=== PATIENT | female | born 1980 | race Caucasian/White ===

== ENCOUNTER 2020-06-29 08:47 | Outpatient (REF) | payer OTHER, SELFPAY ==
[2020-06-29 09:27] LABS: MANUAL DIFF FLAG NO
[2020-06-29 09:29] LABS: Basophils Percent Auto 0.4 % (0-2); Eosinophils Absolute Auto 0.4 X10*3/uL (0.0-0.4); Eosinophils Percent Auto 5.1 % (0-4); Hematocrit 37.9 % (37-47); Hemoglobin 12.4 g/dl (12.0-16.0); Imm Gran Abs Auto 0.01 X10*3/uL (0.00-0.03); Imm Gran Pct Auto 0.1 % (0.0-0.4); Lymphocytes Absolute Auto 2.1 X10*3/uL (1.2-4.9); Lymphocytes Percent Auto 27.5 % (20-40); Mean Corpuscular HGB Conc 32.7 g/dl (31.0-35.0); Mean Corpuscular Hemoglobin 30.3 pg (27.0-33.0); Mean Corpuscular Volume 92.7 fL (80-98); Mean Platelet Volume 10.1 fL (9.4-12.3); Monocytes Absolute Auto 0.6 X10*3/uL (0.1-1.2); Monocytes Percent Auto 7.9 % (2-11); Neutrophils Absolute Auto 4.5 X10*3/uL (2.0-8.3); Platelet Count 301 X10*3/uL (160-400); Red Blood Count 4.09 X10*6/uL (4.20-5.50); Red Cell Distribution Width 13.5 % (11.0-16.0); White Blood Count 7.6 X10*3/uL (4.8-10.8)
[2020-06-29 09:40] LABS: Glucose Urine UA NEG (NEG); Leukocyte Esterase Urine NEG (NEG); Nitrite Urine NEG (NEG); Specific Gravity - Urine 1.025 (1.005-1.025); Urine Blood 3+ (NEG); Urine Ketones NEG (NEG); Urine Protein TRACE MG/DL (NEG-TRACE)
[2020-06-29 10:07] LABS: Appearance Urine HAZY; Color Urine YELLOW
[2020-06-29 10:21] LABS: Alanine Aminotransferase 17 U/L (0-31); Alkaline Phosphatase 59 U/L (39-117); Anion Gap 11 (12-20); Aspartate Amino Transferase 16 U/L (5-31); Bilirubin Total 0.6 mg/dL (0.0-1.0); Blood Urea Nitrogen 12 mg/dL (9-16); Calcium 8.8 mg/dL (8.4-10.2); Carbon Dioxide 27 mmol/L (22-29); Chloride 105 mmol/L (96-108); Cholesterol 148 mg/dL; Estimated Glomerular Filt Rate > 60; Glucose Fasting 89 mg/dL (60-99); HDL Cholesterol 51 mg/dL; LDL Cholesterol Calculated 89 mg/dl; Potassium 3.9 mmol/l (3.3-5.1); Sodium 139 mmol/L (135-145); Total Protein 6.9 g/dL (6.5-8.0); Triglycerides 42 mg/dL
[2020-06-29 10:33] LABS: RBC Urine 30-49 /HPF (0); WBC Urine 0-2 /HPF (0-4)
[2020-06-29 10:34] LABS: Squamous Epithelial Cell Urine 1+ /LPF
== END 2020-06-29 08:48 | disposition home or self-care (01) ==
LOC: HO.LAB 08:47
PROVIDERS: PCP Internal Medicine; Visit Provider Internal Medicine
DX: G43.909 Migraine, unspecified, not intractable, without status migrainosus (principal); I10 Essential (primary) hypertension; E66.9 Obesity, unspecified
CPT/HCPCS: 36415; 80053; 80061; 81001; 81003; 81015; 84443; 85025

== ENCOUNTER 2020-07-21 08:28 | Outpatient (REF) | payer OTHER, SELFPAY ==
[2020-07-21 12:59] LABS: CT PCR NOT DETECTED (Not Detect.); NG PCR NOT DETECTED (Not Detect.)
== END 2020-07-21 08:29 | disposition home or self-care (01) ==
LOC: HO.LAB 08:28
PROVIDERS: Visit Provider Advanced Practice Midwife
DX: Z01.419 Encounter for gynecological examination (general) (routine) without abnormal findings (principal); R10.2 Pelvic and perineal pain; Z20.2 Contact with and (suspected) exposure to infections with a predominantly sexual mode of transmission; Z97.5 Presence of (intrauterine) contraceptive device
CPT/HCPCS: 87491; 87591

== ENCOUNTER 2020-07-22 12:38 | Outpatient (REF) | payer OTHER, SELFPAY ==
--- NOTE | 2020-07-22 12:55 | US_ITS ---
EXAMINATION: ULTRASOUND PELVIS COMPLETE. CLINICAL INFORMATION: Pelvic and perineal pain. COMPARISON: None TECHNIQUE: Transabdominal and transvaginal ultrasound pelvis is performed. FINDINGS: The uterus is anteverted and anteflexed measuring 7.1 cm in length, 3.4 cm in AP and 4.2 cm in transverse dimension. There is IUD well located within the endometrial canal. Right ovary measures 1.8 x 1.9 x 1.4 cm and volume 2.5 mL. There are small echogenic calcifications within. Previously right ovary measured 2.4 x 1.4 x 1.2 cm and volume 2.1 mL. Left ovary measures 1.6 x 2.5 at 0.9 cm and volume 1.9 mL. There are small echogenic calcifications within. Previously left ovary measured 2.0 x 0.8 x 1.0 cm and volume 0.8 mL. There is no free fluid in the cul-de-sac. US/US pelvic complete IMPRESSION: Unremarkable uterus with IUD in satisfactory position within the endometrial canal. Small echogenic calcifications in both ovaries. No focal lesion seen. There is no free fluid in the cul-de-sac.
--- NOTE | 2020-07-22 13:34 | US_ITS ---
EXAMINATION: ULTRASOUND PELVIS COMPLETE. CLINICAL INFORMATION: Pelvic and perineal pain. COMPARISON: None TECHNIQUE: Transabdominal and transvaginal ultrasound pelvis is performed. FINDINGS: The uterus is anteverted and anteflexed measuring 7.1 cm in length, 3.4 cm in AP and 4.2 cm in transverse dimension. There is IUD well located within the endometrial canal. Right ovary measures 1.8 x 1.9 x 1.4 cm and volume 2.5 mL. There are small echogenic calcifications within. Previously right ovary measured 2.4 x 1.4 x 1.2 cm and volume 2.1 mL. Left ovary measures 1.6 x 2.5 at 0.9 cm and volume 1.9 mL. There are small echogenic calcifications within. Previously left ovary measured 2.0 x 0.8 x 1.0 cm and volume 0.8 mL. There is no free fluid in the cul-de-sac. US/US transvaginal IMPRESSION: Unremarkable uterus with IUD in satisfactory position within the endometrial canal. Small echogenic calcifications in both ovaries. No focal lesion seen. There is no free fluid in the cul-de-sac.
[2020-07-22 14:26] LABS: Syphilis Screen Nonreactive (Nonreactive)
[2020-07-23 04:19] LABS: HIV AB/AG Nonreactive (Nonreactive); HIV Num 1 0.16 S/CO (0.00-0.99)
[2020-07-23 04:24] LABS: ~HepC Num1 0.12 S/CO (0.00-0.79); ~Hepatitis C Antibody Nonreactive (Nonreactive)
== END 2020-07-22 12:39 | disposition home or self-care (01) ==
LOC: HO.US 12:38
PROVIDERS: PCP Internal Medicine; Visit Provider Advanced Practice Midwife
DX: Z11.4 Encounter for screening for human immunodeficiency virus [HIV] (principal); Z01.84 Encounter for antibody response examination; R10.2 Pelvic and perineal pain; Z97.5 Presence of (intrauterine) contraceptive device
CPT/HCPCS: 76830; 76856; 86780; 86803; 87389

== ENCOUNTER 2020-11-05 13:42 | Outpatient (REF) | payer OTHER, SELFPAY ==
[2020-11-05 15:58] LABS: HCG Quantitative < 2 mIU/mL; TSH reflex Free T4 2.48 uIU/mL (0.32-4.0)
[2020-11-06 15:47] LABS: Follicle Stimulating Hormone 15.9 mIU/mL; Prolactin 6.8 ng/mL
[2020-11-11 14:26] LABS: Testosterone, Free 1.9 pg/mL (0.1-6.4); Testosterone, Total 15 ng/dL (2-45)
== END 2020-11-05 13:43 | disposition home or self-care (01) ==
LOC: HO.LAB 13:42
PROVIDERS: Visit Provider Advanced Practice Midwife
DX: N91.1 Secondary amenorrhea (principal); E66.9 Obesity, unspecified; Z68.36 Body mass index [BMI] 36.0-36.9, adult
CPT/HCPCS: 36415; 83001; 83498; 84146; 84402; 84403; 84443; 84702; 99212

== ENCOUNTER → 2020-11-13 11:19 | Outpatient (BNVA) | payer OTHER, SELFPAY | PROVIDERS: Visit Provider Advanced Practice Midwife ==

== ENCOUNTER 2021-07-05 16:08 | Outpatient (REF) | payer OTHER, SELFPAY ==
--- NOTE | ~2021-07-05 | MM_ITS ---
EXAMINATION: MM SCREENING DIGITAL BREAST TOMOSYNTHESIS, BILATERAL CLINICAL INFORMATION: Screening. Asymptomatic. The lifetime risk of breast cancer based on the Tyrer-Cuzick Model is 8%. COMPARISON: Mammography: 11/08/2017, 02/06/2017 (baseline) TECHNIQUE: Digital breast tomosynthesis is performed in both the craniocaudal and mediolateral oblique views along with computer-aided detection (CAD). Synthesized 2D images are generated from the tomosynthesis. FINDINGS: There are scattered areas of fibroglandular density (ACR BI-RADS breast composition Category b). There are no significant masses, abnormal calcifications, or other abnormalities. There is no developing density or architectural abnormality. The contours are smooth. MM/MM tomosynthesis screening BI IMPRESSION: No mammographic evidence of malignancy. ASSESSMENT: BI-RADS 1: Negative RECOMMENDATION: Routine annual mammography screening. This patient's information was entered into a reminder system with a target due date for their next mammogram.
== END 2021-07-05 16:09 | disposition home or self-care (01) ==
LOC: HO.MAMMO 16:08
PROVIDERS: Visit Provider Advanced Practice Midwife
DX: Z12.31 Encounter for screening mammogram for malignant neoplasm of breast (principal)
CPT/HCPCS: 77063; 77067

== ENCOUNTER 2021-08-28 15:04 | Outpatient (REF) | payer OTHER, SELFPAY ==
[2021-08-28 15:19] LABS: Appearance Urine HAZY; Color Urine STRAW; Glucose Urine UA NEG (NEG); Leukocyte Esterase Urine 1+ (NEG); Nitrite Urine NEG (NEG); UACC Culture Trigger YES; Urine Blood NEG (NEG); Urine Ketones NEG (NEG); Urine Protein NEG (NEG-TRACE)
[2021-08-28 15:49] LABS: Bacteria Urine 1+ /LPF; Mucus Urine TRACE /LPF; RBC Urine 0-2 /HPF (0); Squamous Epithelial Cell Urine 1+ /LPF
== END 2021-08-28 15:05 | disposition home or self-care (01) ==
LOC: HO.LNP 15:04
PROVIDERS: Visit Provider Physician Assistant Medical
DX: N30.90 Cystitis, unspecified without hematuria (principal)
CPT/HCPCS: 81001; 87086; 87088; 87186

== ENCOUNTER 2021-09-01 17:39 | Outpatient (REF) | payer OTHER, SELFPAY | END 2021-09-01 17:40 | disposition home or self-care (01) | LOC: HO.LNP 17:39 | PROVIDERS: Visit Provider Nurse Practitioner Family | DX: R07.0 Pain in throat (principal) | CPT/HCPCS: 87071 ==

== ENCOUNTER 2021-09-08 14:24 | Outpatient (REF) | payer OTHER, SELFPAY ==
[2021-09-08 14:43] LABS: MANUAL DIFF FLAG NO
[2021-09-08 15:16] LABS: Basophils Percent Auto 0.3 % (0-2); Eosinophils Absolute Auto 0.6 X10*3/uL (0.0-0.4); Eosinophils Percent Auto 5.9 % (0-4); Hematocrit 39.5 % (37.0-47.0); Hemoglobin 12.8 g/dl (12.0-16.0); Imm Gran Abs Auto 0.02 X10*3/uL (0.00-0.03); Imm Gran Pct Auto 0.2 % (0.0-0.4); Lymphocytes Percent Auto 41.1 % (20-40); Mean Corpuscular HGB Conc 32.4 g/dl (31.0-35.0); Mean Corpuscular Hemoglobin 29.2 pg (27.0-33.0); Mean Platelet Volume 10.4 fL (9.4-12.3); Monocytes Absolute Auto 0.7 X10*3/uL (0.1-1.2); Neutrophils Absolute Auto 4.4 x10*3/uL (2.0-8.3); Neutrophils Percent Auto 45.5 % (45-73); Platelet Count 310 X10*3/uL (160-400); Red Blood Count 4.39 X10*6/uL (4.20-5.50); Red Cell Distribution Width 12.8 % (11.0-16.0); White Blood Count 9.6 X10*3/uL (4.8-10.8)
[2021-09-08 15:22] LABS: Alanine Aminotransferase 17 U/L (0-31); Albumin Level 4.1 g/dL (3.5-5.0); Alkaline Phosphatase 64 U/L (39-117); Anion Gap 12 (12-20); Aspartate Amino Transferase 15 U/L (5-31); Bilirubin Total 0.3 mg/dL (0.0-1.0); Blood Urea Nitrogen 15 mg/dL (9-16); Calcium 9.4 mg/dL (8.4-10.2); Carbon Dioxide 29 mmol/L (22-29); Chloride 102 mmol/L (96-108); Estimated Glomerular Filt Rate 51; Glucose Random 84 mg/dL (60-115); Potassium 3.9 mmol/L (3.3-5.1); Sodium 139 mmol/L (135-145); Total Protein 7.4 g/dL (6.5-8.0)
[2021-09-08 15:23] LABS: Lactate Dehydrogenase 178 U/L (122-220)
[2021-09-08 16:14] LABS: Appearance Urine CLEAR; Color Urine YELLOW; Glucose Urine UA NEG (NEG); Leukocyte Esterase Urine 3+ (NEG); Nitrite Urine NEG (NEG); Specific Gravity - Urine <= 1.005 (1.005-1.025); UACC Culture Trigger YES; Urine Blood TRACE (NEG); Urine Ketones NEG (NEG); Urine Protein NEG (NEG-TRACE)
[2021-09-08 16:26] LABS: Bacteria Urine TRACE /LPF; RBC Urine 0-2 /HPF (0); Renal Epithelial Cells Urine TRACE /LPF; Squamous Epithelial Cell Urine 2+ /LPF
== END 2021-09-08 14:25 | disposition home or self-care (01) ==
LOC: HO.LAB 14:24
PROVIDERS: PCP Internal Medicine; Visit Provider Internal Medicine
DX: R22.1 Localized swelling, mass and lump, neck (principal)
CPT/HCPCS: 36415; 80053; 81001; 81003; 83615; 85025; 87086; 87088; 87186

== ENCOUNTER 2022-02-01 13:33 | Outpatient (REF) | payer OTHER, SELFPAY ==
[2022-02-01 14:20] LABS: Influenza A PCR NEGATIVE (Negative); Influenza B PCR NEGATIVE (Negative); Resp Syncy Virus RNA Qual PCR NEGATIVE (Negative); SARS COV2 PCR INHOUSE NEGATIVE (Negative)
== END 2022-02-01 13:34 | disposition home or self-care (01) ==
LOC: HO.LNP 13:33
PROVIDERS: Visit Provider Hospitalist
DX: Z20.822 Contact with and (suspected) exposure to COVID-19 (principal); R09.89 Other specified symptoms and signs involving the circulatory and respiratory systems
CPT/HCPCS: 0241U

== ENCOUNTER 2022-06-03 08:54 | Outpatient (REF) | payer OTHER, SELFPAY ==
[2022-06-03 13:03] LABS: CT PCR NOT DETECTED (Not Detect.); NG PCR NOT DETECTED (Not Detect.)
== END 2022-06-03 08:55 | disposition home or self-care (01) ==
LOC: HO.LNP 08:54
PROVIDERS: Visit Provider Advanced Practice Midwife
DX: Z01.419 Encounter for gynecological examination (general) (routine) without abnormal findings (principal)
CPT/HCPCS: 87491; 87591

== ENCOUNTER 2022-07-18 07:52 | Outpatient (REF) | payer OTHER, SELFPAY ==
--- NOTE | ~2022-07-18 | MM_ITS ---
EXAMINATION: MM SCREENING DIGITAL BREAST TOMOSYNTHESIS, BILATERAL CLINICAL INFORMATION: Screening. Asymptomatic. The lifetime risk of breast cancer based on the Tyrer-Cuzick Model is 8%. COMPARISON: Mammography: 07/05/2021, 11/08/2017, 02/06/2017 TECHNIQUE: Digital breast tomosynthesis is performed in both the craniocaudal and mediolateral oblique views along with computer-aided detection (CAD). Synthesized 2D images are generated from the tomosynthesis. FINDINGS: There are scattered areas of fibroglandular density (ACR BI-RADS breast composition Category b). There are no significant masses, abnormal calcifications, or other abnormalities. Parenchymal pattern is similar to prior studies and there is no developing density or architectural abnormality. The axilla and skin contours are unremarkable. MM/MM tomosynthesis screening BI IMPRESSION: No mammographic evidence of malignancy. ASSESSMENT: BI-RADS 1: Negative RECOMMENDATION: Routine annual mammography screening. This patient's information was entered into a reminder system with a target due date for their next mammogram.
== END 2022-07-18 07:53 | disposition home or self-care (01) ==
LOC: HO.MAMMO 07:52
PROVIDERS: PCP Internal Medicine; Visit Provider Advanced Practice Midwife
DX: Z12.31 Encounter for screening mammogram for malignant neoplasm of breast (principal)
CPT/HCPCS: 77063; 77067

== ENCOUNTER 2022-09-16 11:42 | Outpatient (REF) | payer OTHER, SELFPAY ==
[2022-09-16 12:06] LABS: MANUAL DIFF FLAG NO
[2022-09-16 12:40] LABS: Basophils Absolute Auto 0.1 X10*3/uL (0.0-0.2); Basophils Percent Auto 0.5 % (0-2); Eosinophils Absolute Auto 0.6 X10*3/uL (0.0-0.4); Eosinophils Percent Auto 5.7 % (0-4); Hematocrit 43.1 % (37.0-47.0); Hemoglobin 13.9 g/dl (12.0-16.0); Imm Gran Abs Auto 0.03 X10*3/uL (0.00-0.03); Imm Gran Pct Auto 0.3 % (0.0-0.4); Lymphocytes Absolute Auto 2.7 X10*3/uL (1.2-4.9); Lymphocytes Percent Auto 27.1 % (20-40); Mean Corpuscular HGB Conc 32.3 g/dl (31.0-35.0); Mean Corpuscular Hemoglobin 29.6 pg (27.0-33.0); Mean Corpuscular Volume 91.7 fL (80.0-98.0); Mean Platelet Volume 9.9 fL (9.4-12.3); Monocytes Percent Auto 9.6 % (2-11); Neutrophils Absolute Auto 5.7 x10*3/uL (2.0-8.3); Neutrophils Percent Auto 56.8 % (45-73); Platelet Count 291 X10*3/uL (160-400); Red Cell Distribution Width 13.1 % (11.0-16.0)
[2022-09-16 12:41] LABS: Appearance Urine Clear; Color Urine Yellow; Glucose Urine UA Negative (Negative); Leukocyte Esterase Urine Negative (Negative); Nitrite Urine Negative (Negative); PH 6.5 (5.0-9.0); Specific Gravity - Urine <= 1.005 (1.005-1.025); Urine Blood Negative (Negative); Urine Ketones Negative (Negative); Urine Protein Negative (Neg-Trace)
[2022-09-16 13:18] LABS: Alanine Aminotransferase 19 U/L (0-31); Albumin Level 4.5 g/dL (3.5-5.0); Alkaline Phosphatase 67 U/L (39-117); Anion Gap 15 (12-20); Aspartate Amino Transferase 18 U/L (5-31); Bilirubin Total 0.6 mg/dL (0.0-1.0); Blood Urea Nitrogen 14 mg/dL (9-16); Calcium 9.8 mg/dL (8.4-10.2); Carbon Dioxide 26 mmol/L (22-29); Chloride 104 mmol/L (96-108); Erythrocyte Sedimentation Rate 14 MM/HR (0-20); Estimated Glomerular Filt Rate > 60; Glucose Random 75 mg/dL (60-115); Lipase 24 U/L (8-78); Sodium 141 mmol/L (135-145); Total Protein 7.8 g/dL (6.5-8.0)
== END 2022-09-16 11:43 | disposition home or self-care (01) ==
LOC: HO.LAB 11:42
PROVIDERS: PCP Internal Medicine; Visit Provider Internal Medicine
DX: R30.0 Dysuria (principal); R10.9 Unspecified abdominal pain
CPT/HCPCS: 36415; 80053; 81003; 83690; 85025; 85652

== ENCOUNTER 2022-10-25 16:46 | Outpatient (REF) | payer OTHER, SELFPAY ==
--- NOTE | ~2022-10-25 | XR_ITS ---
EXAMINATION: XR CHEST 2 VIEWS CLINICAL INFORMATION: Respiratory disorder. COMPARISON: Chest radiograph dated 03/23/2019. TECHNIQUE: Frontal and lateral views of the chest were obtained. FINDINGS: The heart, great vessels, pulmonary vasculature and mediastinum are normal. The lungs show no focal infiltrate, effusion or pneumothorax. There is no acute osseous abnormality. There is a mild lumbar dextroscoliosis. XR/XR chest 2V IMPRESSION: No active cardiopulmonary disease.
== END 2022-10-25 16:47 | disposition home or self-care (01) ==
LOC: HO.XRAY 16:46
PROVIDERS: PCP Internal Medicine; Visit Provider Internal Medicine
DX: J45.901 Unspecified asthma with (acute) exacerbation (principal); J98.8 Other specified respiratory disorders
CPT/HCPCS: 71046

== ENCOUNTER 2022-11-28 14:09 | Outpatient (AMB) | payer OTHER, SELFPAY ==
--- NOTE | 2022-11-28 14:30 | MHC.PC.OV ---
Vital Signs 11/28/22 14:31 Height 5 ft 3 in Weight 195 lb BMI 34.5 BP 122/80 Blood Pressure Location Lt brachial Position Sitting Pulse 88 Pulse Source Pulse Oximeter Temp 97.7 F Temp Source Skin Pulse Oximetry (%) 98 Oxygen Delivery Method Room Air Intake Visit Reasons: Asthma Intake Note: Pt is here for follow up Digital Product Specialist Required: No Accompanied by: Self / Same As Patient Allergies shellfish derived [SHELLFISH DERIVED] Allergy (Unknown, Verified 07/26/24 04:24) ANAPHYLAXIS Medication List - Last Reconciled 07/26/24 by Adam Wharton MD Advair Diskus 250-50 mcg/dose (fluticasone propion-salmeterol) 1 inh inhalation BID NS albuterol sulfate 2.5 mg (3 mL) continuous nebulization Q6-8H PRN cyclobenzaprine 5 - 10 mg (1 - 2 x 5 mg) PO TID PRN epinephrine 0.3 mg (0.3 mL) IM Q4H PRN erythromycin 0.5 inches ophthalmic (eye) QID famotidine 40 mg PO BID PRN fluticasone propionate 110 mcg/actuation 2 inhalations inhalation BID 30 days fluticasone propionate 50 mcg/actuation (Flonase Allergy Relief) 1 spray intranasal DAILY hydrochlorothiazide 12.5 mg PO QAM 90 days ibuprofen 600 mg PO Q6H PRN lidocaine 5% 1 patch topical DAILY PRN 30 days loratadine 10 mg PO DAILY PRN 90 days lorazepam 1 mg PO TID PRN 30 days montelukast 10 mg PO DAILY 90 days Ventolin HFA 90 mcg/actuation (albuterol sulfate) 2 puffs inhalation Q6H PRN NS Tobacco use date assessed: 10/25/22 HPI Asthma HPI Details Patient comes in today complaining that her asthma is flaring up again Relates (+) recurrent chest tightness and on and off coughing and wheezing at times Relates (+) mild GAGNON especially with exertion lately She denies any fever or sore throat; denies any headaches or dizziness Denies any chest pains No nausea/vomiting, no abdominal pain No change in bowel habits noted PFSH Medical History Anxiety Allergic rhinitis Asthma Obesity (BMI 30-39.9) Smoker Cough variant asthma Vitamin D deficiency Migraines Surgical History No pertinent past surgical history Family History Father Hypertension Diabetes Mother Diabetes Hypertension Anemia Arthritis Hyperthyroidism Son Autism Chronic mental illness Maternal Aunt Cancer Social History Household Members: Spouse and Children Housing: House Alcohol intake: current Alcohol intake frequency: holidays/special occasions only Alcohol type: other Patient Tobacco Use Status: Current someday Tobacco user Tobacco use type: Cigarette Cigarettes Per Day: 1 e-Cigarette/Vaping Use: Never Used Second Hand Smoke Exposure: Yes service: No Current occupational status: employed 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 1. Little interest or pleasure in doing things: not at all 2. Feeling down, depressed, or hopeless: not at all 3. Trouble falling or staying asleep, or sleeping too much: not at all 4. Feeling tired or having little energy: not at all 5. Poor appetite or overeating: not at all 6. Feeling bad about yourself - or that you are a failure or have let yourself or your family down: not at all 7. Trouble concentrating on things, such as reading the newspaper or watching television: not at all 8. Moving or speaking so slowly that other people could have noticed. Or the opposite - being so fidgety or restless that you have been moving around a lot more than usual: not at all 9. Thoughts that you would be better off or of hurting yourself in some way: not at all Total score: 0 Depression Screening Interpretation: Negative 45398 - PHQ-9 Billing: Yes Source: Developed by Drs. Sung Whipple, Angelica Sutton, Tong Sawyer and colleagues, with an educational airam from [employer]. Thrive Questionnaire Date Thrive assessed: 10/04/22 I am a: Patient What is your living situation today?: I have a steady place to live Within the past 12 months, did the food you bought not last and you didn't have the money to get more?: Never true Within the past 12 months, did you worry whether your food would run out before you got money to buy more?: Never true Do you have trouble paying for medicines?: No Do you have trouble getting transportation to medical appointments?: No Do you have trouble paying your heating and electricity bill?: No Do you have trouble taking care of your child, family member or friend?: No Do you have trouble with day-to-day activities such as bathing, preparing meals, shopping, managing finances, etc.?: No Are you currently unemployed and looking for a job?: No Are you interested in more education?: No Currently or been in a relationship where the following occur: no concerns reported AUDIT C Alcohol Use Questionnaire (AUDIT-C) 1. How often do you have a drink containing alcohol?: Never 3. How often do you have six or more drinks on one occasion?: Never Total Score: 0 Score Reviewed/Action Taken: Yes SHAYAN-7 AMB Questionnaire SHAYAN-7 Date SHAYAN - 7 assessed: 10/04/22 Feeling nervous, anxious, or on edge: 2 = More than half the days Not being able to stop or control worryin = More than half the days Worrying too much about different things: 2 = More than half the days Trouble relaxin = More than half the days Being so restless that it is hard to sit still: 2 = More than half the days Becoming easily annoyed or irritable: 1 = Several days Feeling afraid as if something awful might happen: 0 = Not at all Total SHAYAN-7 score (0-4 normal; 5-9 mild; 10-14 moderate; 15-21 severe): 11 Source: Developed by Drs. Sung Whipple, Angelica Sutton, Tong Sawyer and colleagues, with an educational airam from [employer]. Review of Systems Const Denies chills, Reports fatigue, Denies fever(s) and Denies headache(s) ENT Denies dysphagia, Denies dizziness, Denies otalgia, Denies headache(s), Denies odynophagia, Denies sinus pain and Denies sore throat Card Denies chest pain, Denies irregular heart rhythm, Denies palpitations and Reports dyspnea on exertion Resp Denies chest congestion (but chest feels tight often), Reports cough (recurrent - non-productive), Reports dyspnea on exertion and Reports wheezing (at times) GI Denies abdominal pain, Denies constipation, Denies dysphagia, Denies diarrhea, Denies nausea, Denies odynophagia and Denies vomiting Skin/Breast Denies rash Neuro Denies dizziness and Denies headache(s) Endo Reports fatigue and Denies palpitations Aller/Immun Reports wheezing (at times) Physical exam (Primary Care) Vital Signs: Last Vital Signs Temp 97.7 F 11/28/22 14:31 Pulse 88 11/28/22 14:31 BP 122/80 11/28/22 14:31 Pulse Ox 98 11/28/22 14:31 Oxygen Delivery Method Room Air 11/28/22 14:31 BMI result Body Mass Index 34.5 Tobacco/Smoking Status: Tobacco use Status Tobacco use date assessed 10/25/22 11/28/22 14:42 Patient Tobacco Use Status Current someday Tobacco 11/28/22 14:42 Tobacco use type Cigarette 11/28/22 14:42 e-Cigarette/Vaping Use Never Used 11/28/22 14:42 PHQ-9: PHQ-9 Score PHQ-9: Total score 0 11/28/22 14:49 Depression Screening Interpretation: Negative Thrive Assessment: Date of Thrive Assessment Date Thrive assessed 10/04/22 11/28/22 14:42 Currently or been in a relationship where the following occur: no concerns reported Const General: no acute distress and alert HENMT Ears: TM's normal bilaterally and EAC's normal Throat: Yes posterior oropharynx normal and Yes tonsils normal Neck Neck: Yes no lymphadenopathy and Yes supple Thyroid: Thyroid normal Resp Auscultation: no crackles, no rales, rhonchi (scattered ) throughout, wheezes expiratory wheezes and diminished lung sounds bilateral Cardio Rate: regular rate Rhythm: regular rhythm Heart sounds: no murmurs GI Palpation (GI): Soft to palpation and nontender Auscultation: normal bowel sounds General: Yes no CVA tenderness Back/Spine/Pelvis Back: no CVA tenderness Extrem General: Yes no clubbing, cyanosis or edema Coding Level of Care Code Est Pt Level 3 (75794) Diagnoses Moderate persistent asthma with exacerbation J45.41 Asthma persistence: persistent Asthma severity: moderate
[2022-11-28 14:31] VITALS: BP 122/80; PULSE 88; TEMP 36.5; O2SAT 98; BMI 34.5
== END 2022-11-28 15:47 | disposition home or self-care (01) ==
LOC: HO.HMGH 14:09
PROVIDERS: PCP Internal Medicine; Visit Provider Internal Medicine
DX: J45.41 Moderate persistent asthma with (acute) exacerbation (principal)
CPT/HCPCS: 99499

== ENCOUNTER 2023-03-07 16:15 | Outpatient (REF) | payer OTHER, SELFPAY ==
[2023-03-07 18:31] LABS: Appearance Urine Clear; Color Urine Yellow; Glucose Urine UA Negative (Negative); Leukocyte Esterase Urine Negative (Negative); Nitrite Urine Negative (Negative); PH 5.5 (5.0-9.0); UMIC TRIGGER UACC YES; Urine Blood Trace (Negative); Urine Ketones Negative (Negative); Urine Protein Negative (Neg-Trace)
[2023-03-07 18:40] LABS: Bacteria Urine None Seen (None Seen); Hyaline Casts Urine 0-2 /LPF (0-2); WBC Urine 0-5 /HPF (0-5)
== END 2023-03-07 16:16 | disposition home or self-care (01) ==
LOC: HO.LAB 16:15
PROVIDERS: PCP Internal Medicine; Visit Provider Internal Medicine
DX: R39.9 Unspecified symptoms and signs involving the genitourinary system (principal)
CPT/HCPCS: 81001

== ENCOUNTER 2023-05-01 10:44 | Outpatient (REF) | payer OTHER, SELFPAY | END 2023-05-01 10:45 | disposition home or self-care (01) | LOC: HO.LAB 10:44 | PROVIDERS: PCP Internal Medicine; Visit Provider Advanced Practice Midwife | DX: N94.9 Unspecified condition associated with female genital organs and menstrual cycle (principal); E66.9 Obesity, unspecified; N91.1 Secondary amenorrhea | CPT/HCPCS: 81003; 99212 ==

== ENCOUNTER 2023-05-01 10:44 | Outpatient (AMB) | payer OTHER, SELFPAY ==
--- NOTE | 2023-05-01 10:49 | MHC.OFFVIS ---
Intake Vital Signs 05/01/23 10:56 Height 5 ft 3 in Weight 204 lb BMI 36.1 BP 120/80 Intake Visit Reasons: vaginal burning Model And Dye Person: Model And Dye Person Present (Juani) Allergies shellfish derived [SHELLFISH DERIVED] Allergy (Unknown, Verified 05/01/23 11:02) ANAPHYLAXIS Medication List - Last Reconciled 05/01/23 by Jenny Mcelroy CNM Advair Diskus 250-50 mcg/dose (fluticasone propion-salmeterol) 1 inh inhalation BID NS albuterol sulfate 2.5 mg (3 mL) continuous nebulization Q6-8H PRN cyclobenzaprine 5 - 10 mg (1 - 2 x 5 mg) PO TID PRN epinephrine 0.3 mg (0.3 mL) IM Q4H PRN famotidine 40 mg PO BID PRN fluticasone propionate 110 mcg/actuation 2 inhalations inhalation BID 30 days fluticasone propionate 50 mcg/actuation (Flonase Allergy Relief) 1 spray intranasal DAILY hydrochlorothiazide 12.5 mg PO QAM 90 days ibuprofen 800 mg PO TID PRN 30 days lidocaine 5% 1 patch topical DAILY PRN 30 days loratadine 10 mg PO DAILY PRN 90 days lorazepam 1 mg PO TID PRN 30 days montelukast 10 mg PO DAILY 90 days Ventolin HFA 90 mcg/actuation (albuterol sulfate) 2 puffs inhalation Q6H PRN NS HPI vaginal burning HPI Details And is here because she has vaginal burning and itching she self-treated with Monistat 7 fat still feels symptoms. She has been wearing tight Spandex type on these that helped hold her in. She has been frustrated with weight gain. She also has been missing her menses and got it recently but before that had been 3 months and she had missed periods before. She uses the ParaGard and has used it for years. She is now having grand children she has been with the midwifery practice since the of her 1st child. Scheduled for an annual exam and Pap smear next month [facility] Medical History Allergic rhinitis Anxiety Asthma Cough variant asthma Migraines Obesity (BMI 30-39.9) Smoker Vitamin D deficiency Surgical History No pertinent past surgical history Family History Father Hypertension Diabetes Mother Diabetes Hypertension Anemia Arthritis Hyperthyroidism Son Autism Chronic mental illness Maternal Aunt Cancer Social History Household Members: Spouse and Children Housing: House Alcohol intake: current Alcohol intake frequency: holidays/special occasions only Patient Tobacco Use Status: Current someday Tobacco user Tobacco use type: Cigarette Cigarettes Per Day: 1 e-Cigarette/Vaping Use: Never Used Second Hand Smoke Exposure: Yes service: No Current occupational status: employed 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 Current occupational exposures/hazards: No Sexual orientation: Straight/Heterosexual Gender identity: Female Cognitive needs: No Hearing needs: No Vision needs: No Female Reproductive History Menstrual Age of Menarche: 8 control method: copper IUCD (Paragard 04/2017) Total pregnancies: 5 Full term: 4 Number of Living Children: 4 Ab induced: 1 Physical Exam Vital Signs: Last Vital Signs BP 120/80 05/01/23 10:56 BMI result Body Mass Index 36.1 Other: Patient still has symptoms of vaginal burning at her introitus but her mucosa is very light pink healthy and moist with no evidence visually of yeast or bacterial vaginosis cervix is multiparous with normal appearing mucus and ParaGard strings. External Female Exam: normal external appearance and normal appearance of the urethra Speculum Exam - Vagina: normal appearance of the vagina and normal vaginal discharge Speculum Exam - Cervix: normal appearance of the cervix and Cervical os closed Results AMB Urinalysis, Automated UA Leukoctes 0.5 Adriana/uL Last Edit by HOWIE Fairbanks on 05/01/23 11:09 UA Nitrite Negative Last Edit by HOWIE Fairbanks on 05/01/23 11:09 UA Urobilinogen 0 mg/dL Last Edit by HOWIE Fairbanks on 05/01/23 11:09 UA Protein 0 mg/dL Last Edit by HOWIE Fairbanks on 05/01/23 11:09 UA pH 5.5 Last Edit by HOWIE Fairbanks on 05/01/23 11:09 UA Blood 0 Kike/uL Last Edit by Lianet Frazier Deidre on 05/01/23 11:09 UA Specific [place] 1.015 Last Edit by Lianet Frazier [facility] on 05/01/23 11:09 UA Ketone Negative Last Edit by Lianet Frazier A on 05/01/23 11:09 UA Bilirubin 0 mg/dL Last Edit by Lianet Frazier A on 05/01/23 11:09 UA Glucose 0 mg/dL Last Edit by Lianet Frazier [facility] on 05/01/23 11:09 Results Reviewed Results Reviewed: Laboratory Last Values Urine pH (Auto) 5.5 05/01/23 11:08 Specific [place] (Auto) 1.015 05/01/23 11:08 Urine Protein (Auto) 0 mg/dL 05/01/23 11:08 Glucose (UA)(Auto) 0 mg/dL 05/01/23 11:08 Urine Ketones (Auto) Negative 05/01/23 11:08 Urine Blood (Auto) 0 Kike/uL 05/01/23 11:08 Urine Nitrite (Auto) Negative 05/01/23 11:08 Urine Bilirubin (Auto) 0 mg/dL 05/01/23 11:08 Urine Urobilinogen (Auto) 0 mg/dL 05/01/23 11:08 Leukocyte Esterase (Auto) 0.5 Adriaan/uL 05/01/23 11:08 Assessment & Plan Assessment & Plan (1) Vaginal burning: Comment: Has treated herself with Monistat 7 with good affect. Still some symptoms will give p.r.n. prescriptions teaching re need for air/cotton underwear Code(s): N94.9 - Unspecified condition associated with female genital organs and menstrual cycle (2) Obesity (BMI 30-39.9): Code(s): E66.9 - Obesity, unspecified (3) Secondary amenorrhea: Code(s): N91.1 - Secondary amenorrhea Plan ---I reviewed her symptoms we reviewed what she may have done alleviate symptoms. I reviewed contributing factors to yeast infection including clothing that may be a little tight or does not permit air to pass to the vulva well, including non cotton underwear, nylon and polyester type workout clothes and yoga pants, use of panty liners pads for periods etc. My recommendations include use of the medication that we decided upon, allowing air to her vulva as much as possible including wearing cotton underwear and possibly no underwear at night when possible. Any other contributing factors were explored. I encouraged her not to scratch. I reviewed what to do when she feels symptoms first starting, (re-double her efforts at allowing air to the area.) Will send a prescription for Monistat 7 for future use p.r.n. and also a prescription for Diflucan that she can use if she got really severe symptoms of a yeast infection but in all honesty I think she has treated it is sufficiently and all she really needs to do today is allow air to her community engagement specialist a to allow for some healing of the mucosa so that she is more comfortable discussed why use of Spandex polyester elastic underwear does not allow for air to her vagina as and contributes to yeast. She has an appointment for an annual exam coming up next month. Also discussed the long-term issues of weight gain and increased hormone mileue and contribution to irregular menses as well as all the other problems related to hypertension fatty liver diabetes etc.. Discussed that the main solution is weight loss. Discussed ways to sneak in exercise and to make better dietary choices and recommend trying to go for short walks in the morning and increase the time over time. Did give her a brochure for the weight loss program that she can call at her discretion. Also initiated discussion about the interchange of all of the hormones and amenorrhea and other ways to manage it including the Mirena IUD which at least would prevent hemorrhaging after period of amenorrhea. To be continued at a further visits. Orders: Orders Bacterial Vaginosis Panel Today N94.9 - Unspecified condition associated with female genital organs and menstrual cycle CT NG by PCR Today N94.9 - Unspecified condition associated with female genital organs and menstrual cycle AMB Urinalysis Automated Today N94.9 - Unspecified condition associated with female genital organs and menstrual cycle Medications: New miconazole nitrate 2% (Miconazole-7) 1 appful vaginal BEDTIME 45 grams 1RF 7 days fluconazole may repeat second dose 72 hrs after first dose if symptoms persist 150 mg PO Q3D 2 tabs 0RF 2 doses Coding Level of Care Code Est Pt Level 3 (67210) Diagnoses Vaginal burning N94.9 Obesity (BMI 30-39.9) E66.9 Secondary amenorrhea N91.1
[2023-05-01 10:56] VITALS: BP 120/80; BMI 36.1
== END 2023-05-01 13:18 | disposition home or self-care (01) ==
LOC: HO.HWS 10:44
PROVIDERS: PCP Internal Medicine; Visit Provider Advanced Practice Midwife
DX: N94.9 Unspecified condition associated with female genital organs and menstrual cycle (principal); E66.9 Obesity, unspecified; N91.1 Secondary amenorrhea
CPT/HCPCS: 99213

== ENCOUNTER 2023-05-01 11:40 | Outpatient (REF) | payer OTHER, SELFPAY ==
[2023-05-02 06:24] LABS: CT PCR NOT DETECTED (Not Detect.); NG PCR NOT DETECTED (Not Detect.)
[2023-05-02 15:28] LABS: BV Int Neg Control Negative (Negative); BV Int Pos Control Positive (Positive)
== END 2023-05-01 11:41 | disposition home or self-care (01) ==
LOC: HO.LNP 11:40
PROVIDERS: Visit Provider Advanced Practice Midwife
DX: N94.9 Unspecified condition associated with female genital organs and menstrual cycle (principal)
CPT/HCPCS: 0353U; 87480; 87510; 87660

== ENCOUNTER 2023-05-31 11:31 | Outpatient (AMB) | payer OTHER, SELFPAY ==
--- NOTE | 2023-05-31 11:34 | A.OFFPC_ITS ---
Vital Signs 3 05/31/23 11:35 Height 5 ft 3 in Weight 201 lb 4 oz BMI 35.6 BP 110/72 Blood Pressure Location Lt brachial Position Sitting Pulse 70 Pulse Source Pulse Oximeter Pulse Oximetry (%) 98 Oxygen Delivery Method Room Air Intake Visit Reasons: bumps On Throat Intake Note: Patient is here today for dry mouth with white film on tongue, burning in throat, bumps on the back of throat. No OTC medication tried, only salt water rinse. 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: Not Required per policy Accompanied by: Self / Same As Patient Allergies shellfish derived [SHELLFISH DERIVED] Allergy (Unknown, Verified 05/31/23 11:43) ANAPHYLAXIS Medication List - Last Reconciled 05/31/23 by Immanuel Clemons PA-C Advair Diskus 250-50 mcg/dose (fluticasone propion-salmeterol) 1 inh inhalation BID NS albuterol sulfate 2.5 mg (3 mL) continuous nebulization Q6-8H PRN cyclobenzaprine 5 - 10 mg (1 - 2 x 5 mg) PO TID PRN epinephrine 0.3 mg (0.3 mL) IM Q4H PRN famotidine 40 mg PO BID PRN fluconazole 150 mg PO Q3D 2 doses fluticasone propionate 110 mcg/actuation 2 inhalations inhalation BID 30 days fluticasone propionate 50 mcg/actuation (Flonase Allergy Relief) 1 spray intranasal DAILY hydrochlorothiazide 12.5 mg PO QAM 90 days ibuprofen 800 mg PO TID PRN 30 days lidocaine 5% 1 patch topical DAILY PRN 30 days loratadine 10 mg PO DAILY PRN 90 days lorazepam 1 mg PO TID PRN 30 days metronidazole 500 mg PO BID 7 days miconazole nitrate 2% (Miconazole-7) 1 appful vaginal BEDTIME 7 days montelukast 10 mg PO DAILY 90 days Ventolin HFA 90 mcg/actuation (albuterol sulfate) 2 puffs inhalation Q6H PRN NS Tobacco use date assessed: 05/31/23 Dental Screening Dental Screen Date: 05/31/23 Did you have a dental visit in the last 12 months?: Yes Did you have a dental problem in the last 6 months where you did not have access to dental care?: No Was dental information given to patient?: Patient has dentist HPI bumps On Throat 2 HPI0 Details Patient is a 42-year-old female here today for problem visit. She reports recently developing mouth irritation and noting white patches on her tongue and throat. SHE REPORTS hot beverages and spicy foods, alcohol cause irritation to her mild. She has been trying to pressure tongue without much relief of her symptoms. [facility]LY [facility] Medical History Allergic rhinitis Anxiety Asthma Cough variant asthma Migraines Obesity (BMI 30-39.9) Smoker Vitamin D deficiency Surgical History No pertinent past surgical history Family History Father Hypertension Diabetes Mother Diabetes Hypertension Anemia Arthritis Hyperthyroidism Son Autism Chronic mental illness Maternal Aunt Cancer Social History Household Members: Spouse and Children Housing: House Alcohol intake: current Alcohol intake frequency: a few times a week Alcohol type: beer Patient Tobacco Use Status: Current someday Tobacco user Tobacco use type: Cigarette Cigarettes Per Day: 1 e-Cigarette/Vaping Use: Never Used Second Hand Smoke Exposure: Yes service: No Current occupational status: employed 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 Sung Whipple, Angelica Sutton, Tong Sawyer and colleagues, with an educational airam from [employer]. Review of Systems Const Denies headache(s) Eyes Denies loss of vision ENT Denies vertigo, Denies dizziness, Denies headache(s) and Denies sore throat Card Denies chest pain, Denies leg edema and Denies lightheadedness Resp Denies cough, Denies hemoptysis and Denies wheezing GI Denies abdominal pain, Denies melena, Denies constipation, Denies diarrhea and Denies vomiting Denies urinary frequency, Denies dysuria and Denies urinary urgency Musc Denies arthralgias, Denies joint swelling, Denies numbness and Denies tingling Neuro Denies Abnormal speech present, Denies behavioral changes, Denies vertigo, Denies dizziness, Denies headache(s), Denies loss of vision, Denies memory loss, Denies numbness and Denies tingling Psych Denies anxiety, Denies behavioral changes, Denies depression, Denies memory loss and Denies panic attacks Kuldeep/Lymph Denies easy bleeding and Denies easy bruising Aller/Immun Denies wheezing Physical exam (Primary Care) Vital Signs: Last Vital Signs Pulse 70 05/31/23 11:35 BP 110/72 05/31/23 11:35 Pulse Ox 98 05/31/23 11:35 Oxygen Delivery Method Room Air 05/31/23 11:35 BMI result Body Mass Index 35.6 Tobacco/Smoking Status: Tobacco use Status Tobacco use date assessed 05/31/23 05/31/23 11:42 Patient Tobacco Use Status Current someday Tobacco 05/31/23 11:42 Tobacco use type Cigarette 05/31/23 11:42 e-Cigarette/Vaping Use Never Used 05/31/23 11:42 Thrive Assessment: Date of Thrive Assessment Date Thrive assessed 10/04/22 05/31/23 11:42 Const General: healthy appearing, no acute distress, alert and awake Nutritional Appearance: well nourished Orientation/consciousness: oriented to person, oriented to place and oriented to time HENMT Ears: TM's normal bilaterally General nose exam: Normal nasal mucous membranes and turbinates present Mouth/tongue images: 2 1. SLIGHT WHITE FILM NOTED. NO TONSILLAR EXUDATES OR ERYTHEMA. Eyes Conjunctivae: conjunctivae normal Sclerae: sclerae normal Pupils: Equal, round and reactive pupils present Neck Neck: Yes no lymphadenopathy and Yes no JVD Thyroid: Thyroid normal Carotids: no bruits Resp Effort & Inspection: normal respiratory effort and not tachypneic Auscultation: no crackles, no rales, no rhonchi and no wheezes Cardio Rate: regular rate Rhythm: regular rhythm Heart sounds: no murmurs and normal S1 and S2 GI Palpation (GI): Soft to palpation, nontender, no hepatomegaly and no splenomegaly Auscultation: normal bowel sounds Skin General skin exam: no rashes or lesions noted and dry skin Neuro General: oriented to person, oriented to place and oriented to time Cranial nerves: Yes Equal, round and reactive pupils present Speech: No Abnormal speech present Gait exam (Neuro): Normal gait present Motor exam (neuro): no tremor noted Extrem Right upper extremity: full ROM Left upper extremity: full ROM Right lower extremity: full ROM; no edema Left lower extremity: full ROM; no edema Psych Mental Status: mental status grossly normal Speech and movement: Normal speech and movement present Affect: normal affect Attitude: cooperative Thought process: Normal thought process present Assessment and Plan Assessment & Plan (1) Thrush of mouth and esophagus: Code(s): B37.81 - Candidal esophagitis; B37.0 - Candidal stomatitis Plan: Patient's signs and symptoms most consistent with oral candidiasis. Will supply patient with nystatin solution to use over the next 2 weeks. Advised to change toothbrush Medications: New 2 nystatin swish and swallow 5 mL PO TID 14 days 60 mL 0RF B37.0 - Candidal stomatitis, B37.81 - Candidal esophagitis Coding Level of Care Code Est Pt Level 3 (84087) Diagnoses Thrush of mouth and esophagus B37.81; B37.0
[2023-05-31 11:35] VITALS: BP 110/72; PULSE 70; O2SAT 98; BMI 35.6
== END 2023-05-31 13:51 | disposition home or self-care (01) ==
PROVIDERS: PCP Internal Medicine; Visit Provider Physician Assistant
DX: B37.81 Candidal esophagitis (principal); B37.0 Candidal stomatitis
CPT/HCPCS: 99213

== ENCOUNTER 2023-07-25 09:13 | Outpatient (AMB) | payer OTHER, SELFPAY ==
[2023-07-25 09:25] VITALS: BP 124/76; PULSE 78; O2SAT 93; BMI 36.0
--- NOTE | 2023-07-25 09:25 | MHC.PC.OV ---
Vital Signs 07/25/23 09:25 Height 5 ft 3 in Weight 203 lb BMI 36.0 BP 124/76 Blood Pressure Location Lt brachial Position Sitting Pulse 78 Pulse Source Pulse Oximeter Pulse Oximetry (%) 93 Oxygen Delivery Method Room Air Intake Visit Reasons: asthma flareup Allergies shellfish derived [SHELLFISH DERIVED] Allergy (Unknown, Verified 07/25/23 09:35) ANAPHYLAXIS Medication List - Last Reconciled 07/25/23 by Adam Wharton MD Advair Diskus 250-50 mcg/dose (fluticasone propion-salmeterol) 1 inh inhalation BID NS albuterol sulfate 2.5 mg (3 mL) continuous nebulization Q6-8H PRN cyclobenzaprine 5 - 10 mg (1 - 2 x 5 mg) PO TID PRN epinephrine 0.3 mg (0.3 mL) IM Q4H PRN famotidine 40 mg PO BID PRN fluconazole 150 mg PO Q3D 2 doses fluticasone propionate 110 mcg/actuation 2 inhalations inhalation BID 30 days fluticasone propionate 50 mcg/actuation (Flonase Allergy Relief) 1 spray intranasal DAILY hydrochlorothiazide 12.5 mg PO QAM 90 days ibuprofen 800 mg PO TID PRN 30 days lidocaine 5% 1 patch topical DAILY PRN 30 days loratadine 10 mg PO DAILY PRN 90 days lorazepam 1 mg PO TID PRN 30 days metronidazole 500 mg PO BID 7 days miconazole nitrate 2% (Miconazole-7) 1 appful vaginal BEDTIME 7 days montelukast 10 mg PO DAILY 90 days nystatin 5 mL PO TID 14 days Ventolin HFA 90 mcg/actuation (albuterol sulfate) 2 puffs inhalation Q6H PRN NS Tobacco use date assessed: 05/31/23 Dental Screening Dental Screen Date: 07/25/23 Did you have a dental visit in the last 12 months?: Yes Did you have a dental problem in the last 6 months where you did not have access to dental care?: No Was dental information given to patient?: Patient has dentist HPI asthma flareup HPI Details Patient comes in today complaining of increasing asthma symptoms/flare ups for the past 4 days States that her chest feels tight often and she has been wheezing a lot lately Has been using her nebulizer more often lately - states that the updrafts help but only temporarily - for at least 3 to 4 hours She denies any fever or sore throat States that 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 She denies any exertional chest pains No nausea/vomiting, no abdominal pain No change in bowel habits noted [facility] Medical History Anxiety Allergic rhinitis Asthma Obesity (BMI 30-39.9) Smoker Cough variant asthma Vitamin D deficiency Migraines Surgical History No pertinent past surgical history Family History Father Hypertension Diabetes Mother Diabetes Hypertension Anemia Arthritis Hyperthyroidism Son Autism Chronic mental illness Maternal Aunt Cancer Social History Household Members: Spouse and Children Housing: House Alcohol intake: current Alcohol intake frequency: a few times a week Alcohol type: beer Patient Tobacco Use Status: Current someday Tobacco user Tobacco use type: Cigarette Cigarettes Per Day: 1 e-Cigarette/Vaping Use: Never Used Second Hand Smoke Exposure: Yes service: No Current occupational status: employed 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 1. Little interest or pleasure in doing things: not at all 2. Feeling down, depressed, or hopeless: not at all 3. Trouble falling or staying asleep, or sleeping too much: not at all 4. Feeling tired or having little energy: not at all 5. Poor appetite or overeating: not at all 6. Feeling bad about yourself - or that you are a failure or have let yourself or your family down: not at all 7. Trouble concentrating on things, such as reading the newspaper or watching television: not at all 8. Moving or speaking so slowly that other people could have noticed. Or the opposite - being so fidgety or restless that you have been moving around a lot more than usual: not at all 9. Thoughts that you would be better off or of hurting yourself in some way: not at all Total score: 0 Depression Screening Interpretation: Negative Depression Screening Done: Yes 61740 - PHQ-9 Billing: Yes Source: Developed by Drs. Sung Whipple, Angelica Sutton, Tong Sawyer and colleagues, with an educational airam from [employer]. Thrive Questionnaire Date Thrive assessed: 10/04/22 AUDIT C Alcohol Use Questionnaire (AUDIT-C) 1. How often do you have a drink containing alcohol?: Never 3. How often do you have six or more drinks on one occasion?: Never Total Score: 0 Score Reviewed/Action Taken: Yes SHAYAN-7 AMB Questionnaire SHAYAN-7 Date SHAYAN - 7 assessed: 10/04/22 Source: Developed by Drs. Sung Whipple, Angelica Sutton, Tong Sawyer and colleagues, with an educational airam from [employer]. Review of Systems Const Denies chills, Reports fatigue, Denies fever(s) and Denies headache(s) ENT Denies dysphagia, Denies dizziness, Denies otalgia, Denies headache(s), Denies nasal congestion, Denies odynophagia, Denies sinus pain and Denies sore throat Card Denies chest pain, Denies irregular heart rhythm, Denies palpitations, Reports dyspnea and Reports dyspnea on exertion Resp Reports chest congestion (chest feels tight often lately), Reports cough (recurrent - non-productive), Reports dyspnea, Reports dyspnea on exertion and Reports wheezing (recurrent) GI Denies abdominal pain, Denies constipation, Denies dysphagia, Denies diarrhea, Denies nausea, Denies odynophagia and Denies vomiting Skin/Breast Denies rash Neuro Denies dizziness and Denies headache(s) Endo Reports fatigue and Denies palpitations Aller/Immun Reports wheezing (recurrent) Physical exam (Primary Care) Vital Signs: Last Vital Signs Pulse 78 07/25/23 09:25 BP 124/76 07/25/23 09:25 Pulse Ox 93 07/25/23 09:25 Oxygen Delivery Method Room Air 07/25/23 09:25 BMI result Body Mass Index 36.0 Tobacco/Smoking Status: Tobacco use Status Tobacco use date assessed 05/31/23 07/25/23 09:27 Patient Tobacco Use Status Current someday Tobacco 07/25/23 09:27 Tobacco use type Cigarette 07/25/23 09:27 e-Cigarette/Vaping Use Never Used 07/25/23 09:27 PHQ-9: PHQ-9 Score PHQ-9: Total score 0 07/25/23 09:28 Depression Screening Interpretation: Negative Thrive Assessment: Date of Thrive Assessment Date Thrive assessed 10/04/22 07/25/23 09:27 Const General: no acute distress and alert HENMT Ears: TM's normal bilaterally and EAC's normal Throat: Yes posterior oropharynx normal and Yes tonsils normal Neck Neck: Yes no lymphadenopathy and Yes supple Resp Auscultation: no crackles, no rales, rhonchi (scattered) throughout, wheezes (frequent) expiratory wheezes and diminished lung sounds (significantly) bilateral Cardio Rate: regular rate Rhythm: regular rhythm Heart sounds: no murmurs GI Palpation (GI): Soft to palpation and nontender Auscultation: normal bowel sounds Extrem General: Yes no clubbing, cyanosis or edema Assessment and Plan Assessment & Plan (1) Asthma exacerbation: Code(s): J45.901 - Unspecified asthma with (acute) exacerbation Qualifiers: Asthma severity: moderate Asthma persistence: persistent Qualified Code(s): J45.41 - Moderate persistent asthma with (acute) exacerbation Plan: Will start patient on oral Prednisone taper as well as empiric Abx Tx with Azithromycin x 5 days Continue Advair Diskus 250-50 mcg 1 inhalation BID and Albuterol HFA 2 inhalations Q 6 hours PRN but advised to use her nebulizer instead whenever she has access to it in place of her Albuterol inhaler, at least until her current asthma flare up subsides (2) Smoker: Code(s): F17.200 - Nicotine dependence, unspecified, uncomplicated Plan: Counseled again on smoking cessation, especially in light of her recurrent asthma flare ups Plan To return in 3 months for her annual physical examination Medications: New prednisone 4 tablets x 2 days, then 3 tablets x 2 days, then 2 tablets x 2 days, then 1 tablet x 2 days 8 days 20 tabs 0RF J45.901 - Unspecified asthma with (acute) exacerbation, M25.50 - Pain in unspecified joint azithromycin take 500 mg today (day 1), then 250 mg for 4 days (days 2-5) PO 6 tabs 0RF Coding Level of Care Code Est Pt Level 3 (44999) Diagnoses Moderate persistent asthma with exacerbation J45.41 Asthma severity: moderate Asthma persistence: persistent Smoker F17.200
== END 2023-07-25 09:43 | disposition home or self-care (01) ==
PROVIDERS: PCP Internal Medicine; Visit Provider Internal Medicine
DX: J45.41 Moderate persistent asthma with (acute) exacerbation (principal); F17.200 Nicotine dependence, unspecified, uncomplicated
CPT/HCPCS: 99213

== ENCOUNTER 2024-06-03 05:09 | Emergency (ER) | payer SELFPAY ==
--- NOTE | ~2024-06-03 | XR_ITS ---
EXAMINATION: XR CHEST CLINICAL INFORMATION: COVID COMPARISON: Chest radiograph 10/25/2022 TECHNIQUE: AP chest radiograph. FINDINGS: Normal appearance of the cardiomediastinal structures. No effusions or pneumothoraces. Normal pattern of pulmonary vasculature. No focal pulmonary consolidation. Partial visualization of at least mild multilevel endplate osteophytosis of the thoracic spine. No additional skeletal abnormalities identified. XR/XR chest 1V IMPRESSION: No cardiopulmonary abnormalities identified. Lungs clear. Electronically signed by: Paco Corral MD 06/03/2024 08:12 AM EDT
[2024-06-03 05:11] VITALS: BP 148/88; PULSE 78; RESP 17; TEMP 36.6; O2SAT 97; BMI 35.4
[2024-06-03 05:29] VITALS: BP 139/85; PULSE 85; RESP 16; TEMP 36.9; O2SAT 98
[2024-06-03 05:51] LABS: COVID-19 Test Positive (Negative); IDNOW Serial# 152EDE1D
[2024-06-03 06:03] LABS: IDNOW Serial# 08D9AD1C; Influenza A Negative (Negative); Influenza B2 Negative (Negative)
[2024-06-03] MEDS: guaiFEN/Codeine SF 200/20/10ML 10 ML LIQUID PO (06:10)
[2024-06-03] MEDS: dexAMETHasone 2 MG TABLET 10 MG PO (06:10)
[2024-06-03 06:20] LABS: Strep A Nucleic Acid Negative (Negative)
[2024-06-03 06:21] LABS: IDNOW Serial# 08D9AD1C
--- NOTE | 2024-06-03 06:25 | ED_ITS ---
HPI - URI/Sore Throat General Chief Complaint: Upper Respiratory Symptoms Stated Complaint: URI Time Seen by Provider: 06/03/24 05:57 Source: patient Mode of arrival: ambulatory Limitations: no limitations History of Present Illness ED Provider: sophia TRIANA Narrative: Patient with history of asthma been coughing with sore throat body aches since yesterday patient significant other with same symptoms for last 1 week but tested negative for COVID Related Data Previous Rx's ?Medication ?Instructions ?Recorded lidocaine 5 % topical patch 1 patch topical DAILY PRN pain 30 07/07/21 days #30 ea ibuprofen 800 mg tablet 800 mg PO TID PRN pain 30 days #90 09/02/22 tabs cyclobenzaprine 5 mg tablet 5 - 10 mg (1 - 2 x 5 mg) PO TID 09/19/22 PRN muscle spasm #15 tabs epinephrine 0.3 mg/0.3 mL 0.3 mg (0.3 mL) IM Q4H PRN 09/19/22 injection, auto-injector anaphylaxis #2 ea fluticasone propionate 110 2 inh inhalation BID 30 days #12 09/19/22 mcg/actuation HFA aerosol inhaler grams fluticasone propionate 50 1 spray intranasal DAILY #150 mL 09/19/22 mcg/actuation nasal spray,suspension (Flonase Allergy Relief) Advair Diskus 250 mcg-50 mcg/dose 1 inh inhalation BID #60 ea 10/07/22 powder for inhalation (fluticasone propion-salmeterol) fluconazole 150 mg tablet 150 mg PO Q3D 2 doses #2 tabs 05/01/23 miconazole nitrate 2 % vaginal 1 appful vaginal BEDTIME 7 days 05/01/23 cream (Miconazole-7) #45 grams metronidazole 500 mg tablet 500 mg PO BID 7 days #14 tabs 05/02/23 nystatin 100,000 unit/mL oral 5 ml PO TID 14 days #60 mL 05/31/23 suspension azithromycin 250 mg tablet See Rx Instructions PO .COMPLEX #6 07/25/23 tabs hydrochlorothiazide 12.5 mg capsule 12.5 mg PO QAM 90 days #90 caps 09/19/23 prednisone 10 mg tablets in a dose See Rx Instructions PO PER PKG DIR 10/06/23 pack 8 days #20 tabs famotidine 40 mg tablet 40 mg PO BID PRN for abdominal 10/12/23 pain #180 tabs azithromycin 250 mg tablet See Rx Instructions PO .COMPLEX #6 11/14/23 tabs prednisone 10 mg tablets in a dose See Rx Instructions PO PER PKG DIR 11/14/23 pack 8 days #20 tabs Ventolin HFA 90 mcg/actuation 2 puff inhalation Q6H PRN 12/14/23 aerosol inhaler (albuterol sulfate) shortness of breath or wheezing #18 grams albuterol sulfate 2.5 mg/3 mL 2.5 mg (3 mL) continuous 12/14/23 (0.083 %) solution for nebulization nebulization Q6-8H PRN bronchospasm #300 mL loratadine 10 mg tablet 10 mg PO DAILY PRN allergy 12/14/23 symptoms 90 days #90 tabs montelukast 10 mg tablet 10 mg PO DAILY 90 days #90 tabs 12/14/23 lorazepam 1 mg tablet 1 mg PO TID PRN anxiety 30 days 02/08/24 #90 tabs azithromycin 250 mg tablet See Rx Instructions PO .COMPLEX #6 03/05/24 tabs prednisone 10 mg tablets in a dose See Rx Instructions PO PER PKG DIR 03/05/24 pack 8 days #20 tabs benzonatate 200 mg capsule 200 mg PO TID PRN cough #30 caps 06/03/24 ibuprofen 600 mg tablet 600 mg PO Q6H PRN fever or pain 06/03/24 #30 tabs prednisone 20 mg tablet 40 mg (2 x 20 mg) PO DAILY #10 tabs 06/03/24 Allergies Allergy/AdvReac Type Severity Reaction Status Date / Time shellfish derived Allergy Unknown ANAPHYLAXIS Verified 06/03/24 05:12 [SHELLFISH DERIVED] Review of Systems Review of Systems: Yes all other systems are reviewed and are negative [facility] Past Medical History Medical History Anxiety Allergic rhinitis Asthma Obesity (BMI 30-39.9) Smoker Cough variant asthma Vitamin D deficiency Migraines Surgical History No pertinent past surgical history Family History Family History Father Hypertension Diabetes Mother Diabetes Hypertension Anemia Arthritis Hyperthyroidism Son Autism Chronic mental illness Maternal Aunt Cancer Social History Social History Household Members: Spouse and Children Housing: House Alcohol intake: current Alcohol intake frequency: a few times a week Alcohol type: beer Patient Tobacco Use Status: Current someday Tobacco user Tobacco use type: Cigarette Cigarettes Per Day: 1 e-Cigarette/Vaping Use: Never Used Second Hand Smoke Exposure: Yes Advance Directives: No Advance Directives Information Provided: Yes Do you have a plan to hurt others: No Plan service: No Current occupational status: employed 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 Oriented X3. No acute distress. ENT: Pharynx slight erythematous clear nasal discharge. Oral Mucosa moist Neck: Normal inspection. Neck supple. CVS: Normal heart rate and rhythm. Pulses normal. Respiratory: No respiratory distress. Equal air entry bilateral, no wheezing/rales/rhonchi prolonged expiration with frequent cough Abdomen: Soft and nontender. Bowel sounds are present, no mass palpable, no CVA tenderness Skin: Skin warm and dry. Normal skin color. Normal skin turgor. Extremities: No lower extremity edema. No calf tenderness Neuro: Oriented X 3. No motor deficit. Medications Administered Discontinued Medications Generic Name Dose Route Start Last Admin Trade Name Freq PRN Reason Stop Dose Admin Dexamethasone 10 mg 06/03/24 06:01 06/03/24 06:10 Dexamethasone 2 Mg Tablet PO 06/03/24 06:02 10 mg ONCE ONE Administration Guaifenesin/Codeine Phosphate 10 ml 06/03/24 06:01 06/03/24 06:10 Guaifen/Codeine Sf 200/20/10ml 10 Ml Liquid PO 06/03/24 06:02 10 ml ONCE ONE Administration Medical Decision Making Differential Diagnosis Differential Diagnoses: The differential diagnosis associated with the presentation includes Viral infection/COVID/flu/strep/pneumonia/bronchitis Lab Data MDM Lab Attestation statement: I reviewed the patient's lab results. Labs: Lab Results 06/03/24 06/03/24 Range/Units 05:31 06:04 COVID-19 ([facility]) Positive A (Negative) COVID-19 Clin Com See Note Influenza Type A ([facility]) Negative (Negative) Influenza Type B ([facility]) Negative (Negative) Influenza A & B Note See Note S. pyogenes GrpA [facility] Negative (Negative) Independent Interpretation I performed an independent interpretation of an: Plain X-Ray Interpretation: No infiltrate Radiology Impression Discussion of test interpretation with radiology: I have reviewed the radiol ogist's reading. Discharge Plan Discharge Clinical Impression: COVID-19 Patient Disposition: Home, Self-Care Instructions: COVID-19 (Coronavirus Disease 2019) (ED) Additional Instructions: Tylenol/Motrin for body aches/fever Cough drops as prescribed Social distancing Continue inhaler and prednisone as prescribed Report to ER if increased shortness a breath Prescriptions: New benzonatate 200 mg capsule 200 mg PO TID PRN (Reason: cough) Qty: 30 0RF prednisone 20 mg tablet 40 mg PO DAILY Qty: 10 0RF ibuprofen 600 mg tablet 600 mg PO Q6H PRN (Reason: fever or pain) Qty: 30 0RF No Action lidocaine 5 % adhesive patch,medicated 1 patch topical DAILY PRN (Reason: pain) 30 Days Qty: 30 3RF ibuprofen 800 mg tablet 800 mg PO TID PRN (Reason: pain) 30 Days Qty: 90 1RF fluticasone propion-salmeterol [Advair Diskus] 250-50 mcg/dose blister with d evice 1 inh inhalation BID Qty: 60 3RF metronidazole 500 mg tablet 500 mg PO BID 7 Days Qty: 14 0RF Rx Instructions: Take with food, Avoid alcohol and vinegar products hydrochlorothiazide 12.5 mg capsule 12.5 mg PO QAM 90 Days Qty: 90 1RF prednisone 10 mg tablets,dose pack See Rx Instructions PO PER PKG DIR 8 Days Qty: 20 0RF Rx Instructions: 4 tablets x 2 days, then 3 tablets x 2 days, then 2 tablets x 2 days, then 1 tablet x 2 days famotidine 40 mg tablet 40 mg PO BID PRN (Reason: for abdominal pain) Qty: 180 0RF prednisone 10 mg tablets,dose pack See Rx Instructions PO PER PKG DIR 8 Days Qty: 20 0RF Rx Instructions: 4 tablets x 2 days, then 3 tablets x 2 days, then 2 tablets x 2 days, then 1 tablet x 2 days azithromycin 250 mg tablet See Rx Instructions PO .COMPLEX Qty: 6 0RF Rx Instructions: take 500 mg today (day 1), then 250 mg for 4 days (days 2-5) PO albuterol sulfate 2.5 mg /3 mL (0.083 %) solution for nebulization 2.5 mg continuous nebulization Q6-8H PRN (Reason: bronchospasm) Qty: 300 5RF loratadine 10 mg tablet 10 mg PO DAILY PRN (Reason: allergy symptoms) 90 Days Qty: 90 3RF montelukast 10 mg tablet 10 mg PO DAILY 90 Days Qty: 90 3RF albuterol sulfate [Ventolin HFA] 90 mcg/actuation HFA aerosol inhaler 2 puff inhalation Q6H PRN (Reason: shortness of breath or wheezing) Qty: 18 3RF lorazepam 1 mg tablet 1 mg PO TID PRN (Reason: anxiety) 30 Days Qty: 90 0RF azithromycin 250 mg tablet See Rx Instructions PO .COMPLEX Qty: 6 0RF Rx Instructions: take 500 mg today (day 1), then 250 mg for 4 days (days 2-5) PO prednisone 10 mg tablets,dose pack See Rx Instructions PO PER PKG DIR 8 Days Qty: 20 0RF Rx Instructions: 4 tablets x 2 days, then 3 tablets x 2 days, then 2 tablets x 2 days, then 1 tablet x 2 days cyclobenzaprine 5 mg tablet 5 - 10 mg PO TID PRN (Reason: muscle spasm) Qty: 15 0RF fluticasone propionate 110 mcg/actuation HFA aerosol inhaler 2 inh inhalation BID 30 Days Qty: 12 3RF fluticasone propionate [Flonase Allergy Relief] 50 mcg/actuation spray,suspension 1 spray intranasal DAILY Qty: 150 3RF Rx Instructions: administer into each nostril epinephrine 0.3 mg/0.3 mL auto-injector 0.3 mg IM Q4H PRN (Reason: anaphylaxis) Qty: 2 0RF azithromycin 250 mg tablet See Rx Instructions PO .COMPLEX Qty: 6 0RF Rx Instructions: take 500 mg today (day 1), then 250 mg for 4 days (days 2-5) PO nystatin 100,000 unit/mL suspension 5 ml PO TID 14 Days Qty: 60 0RF Rx Instructions: swish and swallow miconazole nitrate [Miconazole-7] 2 % cream 1 appful vaginal BEDTIME 7 Days Qty: 45 1RF fluconazole 150 mg tablet 150 mg PO Q3D 0 Days Qty: 2 0RF Rx Instructions: may repeat second dose 72 hrs after first dose if symptoms persist Print Language: Kazakh
[2024-06-03 06:43] VITALS: BP 139/85; PULSE 85; RESP 16; TEMP 36.9; O2SAT 98
== END 2024-06-03 06:46 | disposition home or self-care (01) ==
PROVIDERS: Emergency Provider Internal Medicine; PCP Internal Medicine
DX: U07.1 COVID-19 (principal); J06.9 Acute upper respiratory infection, unspecified; R05.9 Cough, unspecified; M79.10 Myalgia, unspecified site; Z79.899 Other long term (current) drug therapy
CPT/HCPCS: 71045; 87502; 87635; 87651; 99283; 99284; J8540

== ENCOUNTER 2024-07-16 08:26 | Emergency (ER) | payer SELFPAY ==
[2024-07-16 08:29] VITALS: BP 143/86; PULSE 95; RESP 18; TEMP 36.4; O2SAT 100; BMI 38.3
--- NOTE | 2024-07-16 08:44 | ED_ITS ---
HPI - General Adult General Chief complaint: Allergic Reaction Stated complaint: L eye redness Time Seen by Provider: 07/16/24 08:42 Source: patient and RN notes reviewed Mode of arrival: ambulatory Limitations: no limitations History of Present Illness ED Provider: Nery Chandler PA-C HPI narrative: This is a 43-year-old female who presents emergency department with complaints of left eye swelling since this morning. Patient states that yesterday she was playing with a friend's dog and she awoke this morning with left eye swelling, and left eye redness. She denies any changes in her vision. She states that she has had a lot of tearing from her left eye. She states that she has a history of pet allergies which typically causes hives otherwise no other reactions like this before. She does not wear contact lenses. She denies any itchiness to her left eye. No difficulty swallowing or breathing. No fevers or chills. No other complaints or concerns at this time. MD complaint: Left eye redness, swelling Onset (ago): hour(s) Radiation: non-radiation Severity: moderate Pain Consistency: constant Relieving factors: none Exacerbating factors: none Associated symptoms: denies other symptoms Treatments prior to arrival: none Related Data Previous Rx's ?Medication ?Instructions ?Recorded lidocaine 5 % topical patch 1 patch topical DAILY PRN pain 30 07/07/21 days #30 ea ibuprofen 800 mg tablet 800 mg PO TID PRN pain 30 days #90 09/02/22 tabs cyclobenzaprine 5 mg tablet 5 - 10 mg (1 - 2 x 5 mg) PO TID 09/19/22 PRN muscle spasm #15 tabs epinephrine 0.3 mg/0.3 mL 0.3 mg (0.3 mL) IM Q4H PRN 09/19/22 injection, auto-injector anaphylaxis #2 ea fluticasone propionate 110 2 inh inhalation BID 30 days #12 09/19/22 mcg/actuation HFA aerosol inhaler grams fluticasone propionate 50 1 spray intranasal DAILY #150 mL 09/19/22 mcg/actuation nasal spray,suspension (Flonase Allergy Relief) Advair Diskus 250 mcg-50 mcg/dose 1 inh inhalation BID #60 ea 10/07/22 powder for inhalation (fluticasone propion-salmeterol) fluconazole 150 mg tablet 150 mg PO Q3D 2 doses #2 tabs 05/01/23 miconazole nitrate 2 % vaginal 1 appful vaginal BEDTIME 7 days 05/01/23 cream (Miconazole-7) #45 grams metronidazole 500 mg tablet 500 mg PO BID 7 days #14 tabs 05/02/23 azithromycin 250 mg tablet See Rx Instructions PO .COMPLEX #6 07/25/23 tabs prednisone 10 mg tablets in a dose See Rx Instructions PO PER PKG DIR 10/06/23 pack 8 days #20 tabs famotidine 40 mg tablet 40 mg PO BID PRN for abdominal 10/12/23 pain #180 tabs azithromycin 250 mg tablet See Rx Instructions PO .COMPLEX #6 11/14/23 tabs prednisone 10 mg tablets in a dose See Rx Instructions PO PER PKG DIR 11/14/23 pack 8 days #20 tabs Ventolin HFA 90 mcg/actuation 2 puff inhalation Q6H PRN 12/14/23 aerosol inhaler (albuterol sulfate) shortness of breath or wheezing #18 grams albuterol sulfate 2.5 mg/3 mL 2.5 mg (3 mL) continuous 12/14/23 (0.083 %) solution for nebulization nebulization Q6-8H PRN bronchospasm #300 mL loratadine 10 mg tablet 10 mg PO DAILY PRN allergy 12/14/23 symptoms 90 days #90 tabs montelukast 10 mg tablet 10 mg PO DAILY 90 days #90 tabs 12/14/23 lorazepam 1 mg tablet 1 mg PO TID PRN anxiety 30 days 02/08/24 #90 tabs azithromycin 250 mg tablet See Rx Instructions PO .COMPLEX #6 03/05/24 tabs prednisone 10 mg tablets in a dose See Rx Instructions PO PER PKG DIR 03/05/24 pack 8 days #20 tabs benzonatate 200 mg capsule 200 mg PO TID PRN cough #30 caps 06/03/24 ibuprofen 600 mg tablet 600 mg PO Q6H PRN fever or pain 06/03/24 #30 tabs nirmatrelvir 300 mg (150 mg See Rx Instructions PO .COMPLEX 06/03/24 x2)-ritonavir 100 mg tablet,dose #30 ea pack (Paxlovid) prednisone 20 mg tablet 40 mg (2 x 20 mg) PO DAILY #10 tabs 06/03/24 nystatin 100,000 unit/mL oral 5 ml PO TID 14 days #60 mL 06/12/24 suspension hydrochlorothiazide 12.5 mg capsule 12.5 mg PO QAM 90 days #90 caps 06/20/24 cefuroxime axetil 500 mg tablet 500 mg PO BID 7 days #14 tabs 07/16/24 erythromycin 5 mg/gram (0.5 %) eye 0.5 inch ophthalmic (eye) QID #3.5 07/16/24 ointment grams fluconazole 150 mg tablet 150 mg PO Q3D 2 doses #2 tabs 07/16/24 prednisone 20 mg tablet 40 mg (2 x 20 mg) PO DAILY 5 days 07/16/24 #10 tabs Allergies Allergy/AdvReac Type Severity Reaction Status Date / Time shellfish derived Allergy Unknown ANAPHYLAXIS Verified 07/16/24 08:30 [SHELLFISH DERIVED] [facility] Past Medical History Medical History Anxiety Allergic rhinitis Asthma Obesity (BMI 30-39.9) Smoker Cough variant asthma Vitamin D deficiency Migraines Surgical History No pertinent past surgical history Family History Family History Father Hypertension Diabetes Mother Diabetes Hypertension Anemia Arthritis Hyperthyroidism Son Autism Chronic mental illness Maternal Aunt Cancer Social History Social History Household Members: Spouse and Children Housing: House Alcohol intake: current Alcohol intake frequency: holidays/special occasions only Alcohol type: other Patient Tobacco Use Status: Current someday Tobacco user Tobacco use type: Cigarette Cigarettes Per Day: 1 Smoked in Last 30 Days: Yes e-Cigarette/Vaping Use: Never Used Second Hand Smoke Exposure: Yes Use of substances other than those prescribed or required for medical reasons: No Advance Directives: No Advance Directives Information Provided: Yes Do you have a plan to hurt others: No Plan Patient : No service: No Current occupational status: employed 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 Fluorescein stain achieved revealing diffuse fluorescein uptake. Intra-ocular pressure 20 on the left, 15 on the right. Mild periorbital edema noted, no cellulitis. No orbital entrapment. Negative Maegan sign. Extraocular movements intact without any acute pain. Medications Administered Discontinued Medications Generic Name Dose Route Start Last Admin Trade Name Abel PRN Reason Stop Dose Admin Fluorescein Sodium 1 strip 07/16/24 08:49 07/16/24 09:22 Fluorescein Sodium Strip EYE-LEFT 07/16/24 08:50 1 strip ONCE ONE Administration Tetracaine HCl 1 drop 07/16/24 08:49 07/16/24 09:22 Tetracaine Hcl/Pf 0.5% Oph Alicja 4 Ml Drops EYE-LEFT 07/16/24 08:50 1 drop ONCE ONE Administration Medical Decision Making Medical Decision Making MDM Narrative: This is a 43-year-old female who presents emergency department with complaints of left eye swelling and redness since this morning. She has no difficulty swallowing or breathing. On arrival, she is mildly hypertensive at 143/86, all other vital signs within normal limits. Patient has mild periorbital edema, no erythema, with left conjunctiva is injected with ecchymosis noted. Unclear if this is allergic versus bacterial. Visual acuity intact. Intra-ocular Pressure is within normal limits. Will treat with prednisone, erythromycin ointment, and oral antibiotics. Given strict return precautions. She understands and agrees with plan. Given referral to Ophthalmology. Patient stable for discharge Given dose of Diflucan as patient gets recurrent yeast infections with antibiotic use. Differential Diagnosis Differential Diagnoses: The differential diagnosis associated with the p resentation includes Conjunctivitis, periorbital cellulitis, orbital cellulitis, glaucoma Discharge Plan Discharge Clinical Impression: Conjunctivitis Patient Disposition: Home, Self-Care Instructions: Conjunctivitis (ED) Additional Instructions: You were seen in the emergency department due to a left eye problem. Your exam today is concerning for either an allergic or bacterial like infection. We are treating you for both. Please take prescribed antibiotic as directed. Also use antibiotic ointment as directed. Finish the entire course even if your symptoms improve. I am also starting you on prednisone. Take as prescribed. You may follow-up with the button breaker operator, Dr. Chua. If any new or worsening symptoms occur including but not limited to severe eye pain, changes in vision, high fevers, worsening swelling, please seek emergent care. Prescriptions: New erythromycin 5 mg/gram (0.5 %) ointment 0.5 inch ophthalmic (eye) QID Qty: 3.5 0RF cefuroxime axetil 500 mg tablet 500 mg PO BID 7 Days Qty: 14 0RF prednisone 20 mg tablet 40 mg PO DAILY 5 Days Qty: 10 0RF fluconazole 150 mg tablet 150 mg PO Q3D Qty: 2 0RF Rx Instructions: may repeat second dose 72 hrs after first dose if symptoms persist No Action lidocaine 5 % adhesive patch,medicated 1 patch topical DAILY PRN (Reason: pain) 30 Days Qty: 30 3RF ibuprofen 800 mg tablet 800 mg PO TID PRN (Reason: pain) 30 Days Qty: 90 1RF fluticasone propion-salmeterol [Advair Diskus] 250-50 mcg/dose blister with device 1 inh inhalation BID Qty: 60 3RF metronidazole 500 mg tablet 500 mg PO BID 7 Days Qty: 14 0RF Rx Instructions: Take with food, Avoid alcohol and vinegar products prednisone 10 mg tablets,dose pack See Rx Instructions PO PER PKG DIR 8 Days Qty: 20 0RF Rx Instructions: 4 tablets x 2 days, then 3 tablets x 2 days, then 2 tablets x 2 days, then 1 tablet x 2 days famotidine 40 mg tablet 40 mg PO BID PRN (Reason: for abdominal pain) Qty: 180 0RF prednisone 10 mg tablets,dose pack See Rx Instructions PO PER PKG DIR 8 Days Qty: 20 0RF Rx Instructions: 4 tablets x 2 days, then 3 tablets x 2 days, then 2 tablets x 2 days, then 1 tablet x 2 days azithromycin 250 mg tablet See Rx Instructions PO .COMPLEX Qty: 6 0RF Rx Instructions: take 500 mg today (day 1), then 250 mg for 4 days (days 2-5) PO albuterol sulfate 2.5 mg /3 mL (0.083 %) solution for nebulization 2.5 mg continuous nebulization Q6-8H PRN (Reason: bronchospasm) Qty: 300 5RF loratadine 10 mg tablet 10 mg PO DAILY PRN (Reason: allergy symptoms) 90 Days Qty: 90 3RF montelukast 10 mg tablet 10 mg PO DAILY 90 Days Qty: 90 3RF albuterol sulfate [Ventolin HFA] 90 mcg/actuation HFA aerosol inhaler 2 puff inhalation Q6H PRN (Reason: shortness of breath or wheezing) Qty: 18 3RF lorazepam 1 mg tablet 1 mg PO TID PRN (Reason: anxiety) 30 Days Qty: 90 0RF azithromycin 250 mg tablet See Rx Instructions PO .COMPLEX Qty: 6 0RF Rx Instructions: take 500 mg today (day 1), then 250 mg for 4 days (days 2-5) PO prednisone 10 mg tablets,dose pack See Rx Instructions PO PER PKG DIR 8 Days Qty: 20 0RF Rx Instructions: 4 tablets x 2 days, then 3 tablets x 2 days, then 2 tablets x 2 days, then 1 tablet x 2 days Paxlovid 300 mg (150 mg x 2)-100 mg tablets,dose pack See Rx Instructions PO .COMPLEX Qty: 30 0RF Rx Instructions: take TWO 150 mg tablets of nirmatrelvir with ONE 100 mg tablet of ritonavir twice daily for 5 days PO nystatin 100,000 unit/mL suspension 5 ml PO TID 14 Days Qty: 60 0RF Rx Instructions: swish and swallow hydrochlorothiazide 12.5 mg capsule 12.5 mg PO QAM 90 Days Qty: 90 1RF benzonatate 200 mg capsule 200 mg PO TID PRN (Reason: cough) Qty: 30 0RF prednisone 20 mg tablet 40 mg PO DAILY Qty: 10 0RF ibuprofen 600 mg tablet 600 mg PO Q6H PRN (Reason: fever or pain) Qty: 30 0RF cyclobenzaprine 5 mg tablet 5 - 10 mg PO TID PRN (Reason: muscle spasm) Qty: 15 0RF fluticasone propionate 110 mcg/actuation HFA aerosol inhaler 2 inh inhalation BID 30 Days Qty: 12 3RF fluticasone propionate [Flonase Allergy Relief] 50 mcg/actuation spray,suspension 1 spray intranasal DAILY Qty: 150 3RF Rx Instructions: administer into each nostril epinephrine 0.3 mg/0.3 mL auto-injector 0.3 mg IM Q4H PRN (Reason: anaphylaxis) Qty: 2 0RF azithromycin 250 mg tablet See Rx Instructions PO .COMPLEX Qty: 6 0RF Rx Instructions: take 500 mg today (day 1), then 250 mg for 4 days (days 2-5) PO miconazole nitrate [Miconazole-7] 2 % cream 1 appful vaginal BEDTIME 7 Days Qty: 45 1RF fluconazole 150 mg tablet 150 mg PO Q3D 0 Days Qty: 2 0RF Rx Instructions: may repeat second dose 72 hrs after first dose if symptoms persist Referrals: Titi Chua [Physician] - Stand Alone Forms: Work/School Release Print Language: Swedish
[2024-07-16] MEDS: Tetracaine HCl/PF 0.5% Oph Sol 4 ML DROPS 1 DROP EYE-LEFT (09:22)
[2024-07-16] MEDS: Fluorescein Sodium STRIP 1 STRIP EYE-LEFT (09:22)
--- NOTE | 2024-07-16 09:36 | PC.NURSE ---
pt a&ox3, visual acuity performed by tech, provider in room performing eye exam.
[2024-07-16 10:08] VITALS: BP 141/82; PULSE 92; RESP 18; TEMP 36.6; O2SAT 100
== END 2024-07-16 10:09 | disposition home or self-care (01) ==
PROVIDERS: Emergency Provider Emergency Medicine; PCP Internal Medicine
DX: H10.9 Unspecified conjunctivitis (principal); H57.12 Ocular pain, left eye; F17.210 Nicotine dependence, cigarettes, uncomplicated
CPT/HCPCS: 99283; 99284

== ENCOUNTER 2024-07-25 09:06 | Outpatient (AMB) | payer OTHER, SELFPAY ==
[2024-07-25 09:09] VITALS: BP 142/90; PULSE 72; O2SAT 98; BMI 37.9
--- NOTE | 2024-07-25 09:09 | A.OFFPC_ITS ---
Vital Signs 07/25/24 09:09 Height 5 ft 3 in Weight 214 lb 2 oz BMI 37.9 BP 142/90 H Blood Pressure Location Lt brachial Position Sitting Pulse 72 Pulse Source Pulse Oximeter Pulse Oximetry (%) 98 Oxygen Delivery Method Room Air Intake Visit Reasons: [facility] 07/16 L eye redness Quahogger Required: No Accompanied by: Self / Same As Patient Allergies shellfish derived [SHELLFISH DERIVED] Allergy (Unknown, Verified 07/26/24 04:24) ANAPHYLAXIS Medication List - Last Reconciled 07/26/24 by Adam Wharton MD Advair Diskus 250-50 mcg/dose (fluticasone propion-salmeterol) 1 inh inhalation BID NS albuterol sulfate 2.5 mg (3 mL) continuous nebulization Q6-8H PRN cyclobenzaprine 5 - 10 mg (1 - 2 x 5 mg) PO TID PRN epinephrine 0.3 mg (0.3 mL) IM Q4H PRN erythromycin 0.5 inches ophthalmic (eye) QID famotidine 40 mg PO BID PRN fluticasone propionate 110 mcg/actuation 2 inhalations inhalation BID 30 days fluticasone propionate 50 mcg/actuation (Flonase Allergy Relief) 1 spray intranasal DAILY hydrochlorothiazide 12.5 mg PO QAM 90 days ibuprofen 600 mg PO Q6H PRN lidocaine 5% 1 patch topical DAILY PRN 30 days loratadine 10 mg PO DAILY PRN 90 days lorazepam 1 mg PO TID PRN 30 days montelukast 10 mg PO DAILY 90 days Ventolin HFA 90 mcg/actuation (albuterol sulfate) 2 puffs inhalation Q6H PRN NS Tobacco use date assessed: 07/25/24 Dental Screening Dental Screen Date: 07/25/24 Did you have a dental visit in the last 12 months?: No Did you have a dental problem in the last 6 months where you did not have access to dental care?: No Was dental information given to patient?: No HPI [facility] 07/16 L eye redness HPI Details Patient comes in today for follow up of her left eye issues States that she went to the ER last week for increased redness and swelling of her left eye She was started empirically on oral Ceftin, oral prednisone x 5 days and erythromycin eye ointment, which she is currently still using She has finished her Ceftin and prednisone a couple of days ago Patient states that the swelling in and around her left eye is gone now and the redness and pain have subsided somewhat although she still feels like there is pressure inside her left eye States that she has an appointment to see Dr. Deniz Levin in [facility] for an eye exam She notes that her vision in her left eye was somewhat blurry when she went to the ER last week but it is now close to back to normal Patient states that she feels okay otherwise She denies any headaches or dizziness; denies any fever or sore throat Denies any chest pains, no SOB No nausea/vomiting, no abdominal pain No change in bowel habits noted [facility] Medical History Anxiety Allergic rhinitis Asthma Obesity (BMI 30-39.9) Smoker Cough variant asthma Vitamin D deficiency Migraines Surgical History No pertinent past surgical history Family History Father Hypertension Diabetes Mother Diabetes Hypertension Anemia Arthritis Hyperthyroidism Son Autism Chronic mental illness Maternal Aunt Cancer Social History Household Members: Spouse and Children Housing: House Alcohol intake: current Alcohol intake frequency: holidays/special occasions only Alcohol type: other Patient Tobacco Use Status: Current someday Tobacco user Tobacco use type: Cigarette Cigarettes Per Day: 1 e-Cigarette/Vaping Use: Never Used Second Hand Smoke Exposure: Yes service: No Current occupational status: employed 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 1. Little interest or pleasure in doing things: not at all 2. Feeling down, depressed, or hopeless: not at all 3. Trouble falling or staying asleep, or sleeping too much: not at all 4. Feeling tired or having little energy: not at all 5. Poor appetite or overeating: not at all 6. Feeling bad about yourself - or that you are a failure or have let yourself or your family down: not at all 7. Trouble concentrating on things, such as reading the newspaper or watching television: not at all 8. Moving or speaking so slowly that other people could have noticed. Or the opposite - being so fidgety or restless that you have been moving around a lot more than usual: not at all 9. Thoughts that you would be better off or of hurting yourself in some way: not at all Total score: 0 Depression Screening Interpretation: Negative Depression Screening Done: Yes 10764 - PHQ-9 Billing: Yes Source: Developed by Drs. Sung Whipple, Angelica Sutton, Tong Sawyer and colleagues, with an educational airam from [employer]. Thrive Questionnaire Date Thrive assessed: 07/25/24 I am a: Patient What is your living situation today?: I have a steady place to live Within the past 12 months, did the food you bought not last and you didn't have the money to get more?: Never true Within the past 12 months, did you worry whether your food would run out before you got money to buy more?: Never true Do you have trouble paying for medicines?: No Do you have trouble getting transportation to medical appointments?: No Do you have trouble paying your heating and electricity bill?: No Do you have trouble taking care of your child, family member or friend?: No Do you have trouble with day-to-day activities such as bathing, preparing meals, shopping, managing finances, etc.?: No Are you currently unemployed and looking for a job?: No Are you interested in more education?: No Please select the resources that you would like help with: None Currently or been in a relationship where the following occur: No concerns reported THRIVE Score: 0 AUDIT C Alcohol Use Questionnaire (AUDIT-C) 1. How often do you have a drink containing alcohol?: Never 3. How often do you have six or more drinks on one occasion?: Never Total Score: 0 Score Reviewed/Action Taken: Yes SHAYAN-7 AMB Questionnaire SHAYAN-7 Date SHAYAN - 7 assessed: 07/25/24 Feeling nervous, anxious, or on edge: 0 = Not at all Not being able to stop or control worryin = Not at all Worrying too much about different things: 0 = Not at all Trouble relaxin = Not at all Being so restless that it is hard to sit still: 0 = Not at all Becoming easily annoyed or irritable: 0 = Not at all Feeling afraid as if something awful might happen: 0 = Not at all Total SHAYAN-7 score (0-4 normal; 5-9 mild; 10-14 moderate; 15-21 severe): 0 Source: Developed by Drs. Sung Whipple, Angelica Sutton, Tong Sawyer and colleagues, with an educational airam from [employer]. Review of Systems Const Denies chills, Reports fatigue, Denies fever(s) and Denies headache(s) Eyes Details: (+) mild residual redness in the left eye Denies blurry vision, Reports irritation (mild, in the left eye) and Reports eye pain (left eye - mild, improving; feels like there's pressure in her left eye ) ENT Denies dysphagia, Denies dizziness, Denies headache(s), Denies neck pain and Denies sore throat Card Denies chest pain, Denies irregular heart rhythm, Denies palpitations and Denies dyspnea Resp Denies chest congestion, Denies cough and Denies dyspnea GI Denies abdominal pain, Denies constipation, Denies dysphagia, Denies diarrhea, Denies nausea and Denies vomiting Musc Denies back pain and Denies neck pain Skin/Breast Denies rash Neuro Denies dizziness and Denies headache(s) Endo Reports fatigue and Denies palpitations Physical exam (Primary Care) Vital Signs: Last Vital Signs Pulse 72 07/25/24 09:09 BP 142/90 H 07/25/24 09:09 Pulse Ox 98 07/25/24 09:09 Oxygen Delivery Method Room Air 07/25/24 09:09 BMI result Body Mass Index 37.9 Tobacco/Smoking Status: Tobacco use Status Tobacco use date assessed 07/25/24 07/25/24 09:17 Patient Tobacco Use Status Current someday Tobacco 07/25/24 09:17 Tobacco use type Cigarette 07/25/24 09:17 e-Cigarette/Vaping Use Never Used 07/25/24 09:17 PHQ-9: PHQ-9 Score PHQ-9: Total score 0 07/25/24 09:46 Depression Screening Interpretation: Negative Thrive Assessment: Date of Thrive Assessment Date Thrive assessed 07/25/24 07/25/24 09:17 Currently or been in a relationship where the following occur: No concerns reported Const General: no acute distress and alert HENMT Throat: Yes posterior oropharynx normal and Yes tonsils normal Eyes Other: (+) minimal erythema of the left conjunctiva Eyelids: Yes eyelids normal Pupils: Equal, round and reactive pupils present EOM: EOMs intact bilaterally Neck Neck: Yes no lymphadenopathy and Yes supple Thyroid: Thyroid normal Resp Auscultation: clear to auscultation bilaterally, no crackles and no rales Cardio Rate: regular rate Rhythm: regular rhythm Heart sounds: no murmurs GI Palpation (GI): Soft to palpation and nontender Auscultation: normal bowel sounds Neuro Cranial nerves: Yes Equal, round and reactive pupils present Extrem General: Yes no clubbing, cyanosis or edema Office Procedures Flu Questionnaire Does the patient have a severe egg allergy?: No Immunizations Fluarix Triv [id number] (PF) 45 mcg (15 mcg x 3)/0.5 mL IM syringe Performing Provider: Adam Wharton MD [facility] Documented (not given) by: HOWIE Zaragoza on 07/25/24 09:20 Reason Not Given: Patient Refused Coding Level of Care Code Est Pt Level 3 (02414) Diagnoses Left eye pain H57.12 Additional Codes PHQ-9 - 10877 - PHQ-9 Billing: Yes ([id number]) Assessment & Plan Assessment & Plan (1) Left eye pain: Code(s): H57.12 - Ocular pain, left eye Category: Medical Plan: S/P empiric Tx with oral Cefuroxime and Prednisone from the ER She is currently still using Erythromycin ointment in her left eye QID Reports that her left eye pain and swelling has improved a lot but she currently still feels like there is pressure in her left eye Her left eye still has some residual erythema and appears slightly more prominent (edema?) compared to the right eye She is scheduled to see Deniz Levin in [place] tomorrow for an eye exam but as he is an transportation maintenance specialist, am not sure how much he can really examine her as she will likely need a more comprehensive exam done on her eye Have discussed with patient that Dr. Levin will at least be able to check and see if there is any possibility of glaucoma in her eye presently as that would be one of the main concerns here Will go ahead and refer her to ophthalmology as well for further evaluation and management, in case Dr. Levin is not able to do everything that is require for her eye in terms of a complete exam Plan To return as scheduled next month for her annual physical examination Orders: Orders Influenza [id number] Immunization 07/25/24 Z23 - Encounter for immunization Referrals Ophthalmology Referral H57.12 - Ocular pain, left eye
== END 2024-07-25 09:49 | disposition home or self-care (01) ==
PROVIDERS: PCP Internal Medicine; Visit Provider Internal Medicine
DX: H57.12 Ocular pain, left eye (principal)

== ENCOUNTER → 2024-07-25 09:06 | Outpatient (BNVA) | payer SELFPAY | PROVIDERS: PCP Internal Medicine; Visit Provider Internal Medicine | DX: H57.12 Ocular pain, left eye (principal); Z28.21 Immunization not carried out because of patient refusal | CPT/HCPCS: 90471; 96127; 99212 ==

== ENCOUNTER 2024-07-30 08:39 | Outpatient (AMB) | payer OTHER, SELFPAY ==
--- NOTE | 2024-07-30 09:48 | MHC.OFFWIV ---
Intake Vital Signs 07/30/24 09:50 Height 5 ft 3 in Weight 218 lb BMI 38.6 BP 124/80 Blood Pressure Location Lt brachial Position Sitting Pulse 74 Pulse Source Pulse Oximeter Pulse Oximetry (%) 98 Oxygen Delivery Method Room Air Intake Visit Reasons: EP Muscle Strain on back of neck [phone] Intake Note: Patient here for upper back pain and radiates down the left arm to the hand and causes numbness that has been present for about 1 week. Patient Tobacco Use Status: Current someday Tobacco user Allergies shellfish derived [SHELLFISH DERIVED] Allergy (Unknown, Verified 07/30/24 09:52) ANAPHYLAXIS Do you need a note to return to daycare/school/sports/work: Yes HPI HPI Comments History of Present Illness Details Patient is a 43-year-old female complaining of left-sided neck pain and numbness and tingling that radiates down her left arm. She denies any weakness in the arm. She tells me she has chronic issues with back pain but it is usually in her mid back. She has been using icy hot and NSAIDs with temporary relief. She tells me she thinks that is she has got some muscle spasms going on the neck as well. She states she does not have anymore muscle relaxers at home but usually those can be very effective for her as well. She is concerned because she thinks that the hump on the back of her neck is higher on the left side than on the right side and she is wondering if there is some abnormal growth there. She states that a co-worker noticed it. She tells me she has had the home for a long time but it has always been even. COUNTS INCLUDE 234 BEDS AT THE [facility] Medical History Anxiety Allergic rhinitis Asthma Obesity (BMI 30-39.9) Smoker Cough variant asthma Vitamin D deficiency Migraines Surgical History No pertinent past surgical history Family History Father Hypertension Diabetes Mother Diabetes Hypertension Anemia Arthritis Hyperthyroidism Son Autism Chronic mental illness Maternal Aunt Cancer Social History Household Members: Spouse and Children Housing: House Alcohol intake: current Alcohol intake frequency: holidays/special occasions only Alcohol type: other Patient Tobacco Use Status: Current someday Tobacco user Tobacco use type: Cigarette Cigarettes Per Day: 1 e-Cigarette/Vaping Use: Never Used Second Hand Smoke Exposure: Yes service: No Current occupational status: employed 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 Current occupational exposures/hazards: No Sexual orientation: Straight/Heterosexual Gender identity: Female Cognitive needs: No Hearing needs: No Vision needs: No Female Reproductive History Menstrual Age of Menarche: 8 Review of Systems Const All systems reviewed & are unremarkable except as noted in HPI and below Physical Exam Vital Signs: Last Vital Signs Pulse 74 07/30/24 09:50 BP 124/80 07/30/24 09:50 Pulse Ox 98 07/30/24 09:50 Oxygen Delivery Method Room Air 07/30/24 09:50 BMI result Body Mass Index 38.6 Const General: cooperative, healthy appearing and comfortable Orientation/consciousness: patient oriented x3 HEENT Head: Yes normal to inspection and Yes normocephalic General nose exam: Normal external nose present Face and sinus: Yes normal facial exam Eyes General: appearance normal, both eyes and all related structures Resp Effort & Inspection: normal respiratory effort and able to speak in complete sentences Back/Spine/Pelvis Cervical Spine: cervical ROM normal, cervical muscular tenderness (Left), cervical spasm (Left), No Cervical spine tenderness and other (dorsocervical fat pad, higher on left than right) Thoracic/Lumbar Spine: thoracic and lumbar spine normal to inspection, paraspinal muscle tenderness on the left in the upper thoracic, No thoracic spinal tenderness and No lumbar spinal tenderness Neuro General: patient oriented x3 Assessment & Plan Assessment & Plan (1) Cervicalgia: Code(s): M54.2 - Cervicalgia Plan: Sent a low dose prednisone burst for 5 days, recommended continuing to use icy hot, NSAIDs and ice as needed (2) Muscle spasm: Code(s): M62.838 - Other muscle spasm Plan: Sent a refill on her cyclobenzaprine Plan See above Medications: New cyclobenzaprine 5 mg PO Q8H PRN 20 tabs 0RF Muscle Spasm prednisone 20 mg PO QAM 5 tabs 0RF Coding Level of Care Code Est Pt Level 4 (19194) Diagnoses Cervicalgia M54.2 Muscle spasm M62.838
[2024-07-30 09:50] VITALS: BP 124/80; PULSE 74; O2SAT 98; BMI 38.6
== END 2024-07-30 10:06 | disposition home or self-care (01) ==
PROVIDERS: PCP Internal Medicine; Visit Provider Physician Assistant
DX: M54.2 Cervicalgia (principal); M62.838 Other muscle spasm

== ENCOUNTER → 2024-07-30 08:39 | Outpatient (BNVA) | payer OTHER, SELFPAY | PROVIDERS: PCP Internal Medicine; Visit Provider Physician Assistant | DX: M54.2 Cervicalgia (principal); M62.838 Other muscle spasm | CPT/HCPCS: 99212 ==

== ENCOUNTER 2024-08-10 09:53 | Outpatient (REF) | payer OTHER, SELFPAY ==
[2024-08-10 10:28] LABS: MANUAL DIFF FLAG NO
[2024-08-10 11:11] LABS: Basophils Percent Auto 0.2 % (0-2); Eosinophils Absolute Auto 0.3 X10*3/uL (0.0-0.4); Hematocrit 39.2 % (37.0-47.0); Imm Gran Abs Auto 0.02 X10*3/uL (0.00-0.03); Imm Gran Pct Auto 0.2 % (0.0-0.4); Lymphocytes Absolute Auto 2.6 X10*3/uL (1.2-4.9); Lymphocytes Percent Auto 30.7 % (20-40); Mean Corpuscular HGB Conc 33.2 g/dl (31.0-35.0); Mean Corpuscular Hemoglobin 30.1 pg (27.0-33.0); Mean Corpuscular Volume 90.7 fL (80.0-98.0); Mean Platelet Volume 9.9 fL (9.4-12.3); Monocytes Absolute Auto 0.6 X10*3/uL (0.1-1.2); Monocytes Percent Auto 6.7 % (2-11); Neutrophils Absolute Auto 4.8 x10*3/uL (2.0-8.3); Neutrophils Percent Auto 58.2 % (45-73); Platelet Count 310 X10*3/uL (160-400); Red Blood Count 4.32 X10*6/uL (4.20-5.50); Red Cell Distribution Width 12.6 % (11.0-16.0); White Blood Count 8.3 X10*3/uL (4.8-10.8)
[2024-08-10 11:31] LABS: Appearance Urine Cloudy; Color Urine Yellow; Glucose Urine UA Negative (Negative); Leukocyte Esterase Urine Moderate (2+) (Negative); Nitrite Urine Negative (Negative); PH 5.5 (5.0-9.0); Specific Gravity - Urine 1.025 (1.005-1.025); UMIC TRIGGER UACC YES; Urine Blood Negative (Negative); Urine Ketones Negative (Negative); Urine Protein Trace mg/dL (Neg-Trace)
[2024-08-10 11:46] LABS: Erythrocyte Sedimentation Rate 23 MM/HR (0-20)
[2024-08-10 11:48] LABS: Alanine Aminotransferase 30 U/L (0-31); Albumin Level 3.8 g/dL (3.5-5.0); Alkaline Phosphatase 70 U/L (39-117); Anion Gap 12 (12-20); Aspartate Amino Transferase 28 U/L (5-31); Bilirubin Total 0.6 mg/dL (0.0-1.0); Blood Urea Nitrogen 14 mg/dL (9-16); Calcium 9.5 mg/dL (8.4-10.2); Carbon Dioxide 26 mmol/L (22-29); Chloride 107 mmol/L (96-108); Cholesterol 165 mg/dL (<200); Estimated Glomerular Filt Rate 59; Glucose Fasting 80 mg/dL (60-99); HDL Cholesterol 50 mg/dL (>40); LDL Cholesterol Calculated 105 mg/dL (<100); Potassium 3.6 mmol/L (3.3-5.1); Sodium 141 mmol/L (135-145); Total Protein 7.1 g/dL (6.5-8.0); Triglycerides 51 mg/dL (<150)
[2024-08-10 11:50] LABS: Bacteria Urine Trace (None Seen); RBC Urine 0-2 /HPF (0-2); UACC Culture Trigger YES; WBC Urine 21-50 /HPF (0-5)
[2024-08-10 12:06] LABS: TSH reflex Free T4 4.66 uIU/mL (0.32-4.0)
[2024-08-10 12:46] LABS: Free T4 (Free Thyroxine) 1.18 ng/dL (0.71-1.85)
== END 2024-08-10 09:54 | disposition home or self-care (01) ==
LOC: HO.LAB 09:53
PROVIDERS: PCP Internal Medicine; Visit Provider Internal Medicine
DX: E78.00 Pure hypercholesterolemia, unspecified (principal); D64.9 Anemia, unspecified; E55.9 Vitamin D deficiency, unspecified; M79.7 Fibromyalgia
CPT/HCPCS: 36415; 80053; 80061; 81001; 82306; 84439; 84443; 85025; 85652; 87086

== ENCOUNTER 2024-08-28 09:18 | Outpatient (AMB) | payer OTHER, SELFPAY ==
[2024-08-28 09:20] VITALS: BP 134/80; PULSE 82; O2SAT 97; BMI 38.5
--- NOTE | 2024-08-28 09:20 | A.OFFPC_ITS ---
Vital Signs 08/28/24 09:20 Height 5 ft 3 in Weight 217 lb 2 oz BMI 38.5 BP 134/80 Blood Pressure Location Lt brachial Position Sitting Pulse 82 Pulse Source Pulse Oximeter Pulse Oximetry (%) 97 Oxygen Delivery Method Room Air Intake Visit Reasons: Annual PE Humane Officer Required: No Accompanied by: Self / Same As Patient Allergies shellfish derived [SHELLFISH DERIVED] Allergy (Unknown, Verified 08/28/24 09:41) ANAPHYLAXIS Medication List - Last Reconciled 08/28/24 by Adam Wharton MD Advair Diskus 250-50 mcg/dose (fluticasone propion-salmeterol) 1 inh inhalation BID NS albuterol sulfate 2.5 mg (3 mL) continuous nebulization Q6-8H PRN cholecalciferol (vitamin D3) 50 mcg PO DAILY 90 days clonidine HCl 0.2 mg PO BEDTIME 30 days cyclobenzaprine 5 mg PO Q8H PRN epinephrine 0.3 mg (0.3 mL) IM Q4H PRN erythromycin 0.5 inches ophthalmic (eye) QID famotidine 40 mg PO BID PRN fluticasone propionate 50 mcg/actuation (Flonase Allergy Relief) 1 spray intranasal DAILY hydrochlorothiazide 12.5 mg PO QAM 90 days ibuprofen 600 mg PO Q6H PRN lidocaine 5% 1 patch topical DAILY PRN 30 days loratadine 10 mg PO DAILY PRN 90 days lorazepam 1 mg PO TID PRN 30 days magnesium oxide (MagOx) 400 mg PO BEDTIME 90 days montelukast 10 mg PO DAILY 90 days trazodone 50 mg PO BEDTIME PRN 30 days Ventolin HFA 90 mcg/actuation (albuterol sulfate) 2 puffs inhalation Q6H PRN NS Tobacco use date assessed: 08/28/24 Dental Screening Dental Screen Date: 08/28/24 HPI Annual PE HPI Details Patient comes in today for her annual physical examination States that she feels tired and fatigued often States that she has trouble sleeping at night for a while now - tends to wake up multiple times in the middle of the night for no apparent reason often and states that it takes her a while before she can get back to sleep Notes that it feels like her brain won't shut down when she tries to go to sleep She denies any headaches or dizziness Denies any chest pains, no SOB No nausea/vomiting, no abdominal pain No change in bowel habits noted Denies any acute urinary symptoms Notes (+) frequent/recurrent joint pains as well that often occur in her hands and fingers and seem to be more pronounced in the morning She had her follow up labs done a couple of weeks ago - to discuss her results She is overdue for her annual mammogram - was last done in June 2022 She also has not had her annual gynecology exam and pap smear done this past year yet [facility] Medical History (Updated 09/01/24 @ 18:58 by Adam Wharton MD) Insomnia Migraines Gastroesophageal reflux disease Essential hypertension Anxiety Allergic rhinitis Asthma Obesity (BMI 30-39.9) Smoker Cough variant asthma Vitamin D deficiency Surgical History No pertinent past surgical history Family History Father Hypertension Diabetes Mother Diabetes Hypertension Anemia Arthritis Hyperthyroidism Son Autism Chronic mental illness Maternal Aunt Cancer Social History Household Members: Spouse and Children Housing: House Alcohol intake: current Alcohol intake frequency: holidays/special occasions only Alcohol type: other Patient Tobacco Use Status: Current someday Tobacco user Tobacco use type: Cigarette Cigarettes Per Day: 1 e-Cigarette/Vaping Use: Never Used Second Hand Smoke Exposure: Yes service: No Current occupational status: employed 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 1. Little interest or pleasure in doing things: not at all 2. Feeling down, depressed, or hopeless: not at all 3. Trouble falling or staying asleep, or sleeping too much: not at all 4. Feeling tired or having little energy: not at all 5. Poor appetite or overeating: not at all 6. Feeling bad about yourself - or that you are a failure or have let yourself or your family down: not at all 7. Trouble concentrating on things, such as reading the newspaper or watching television: not at all 8. Moving or speaking so slowly that other people could have noticed. Or the opposite - being so fidgety or restless that you have been moving around a lot more than usual: not at all 9. Thoughts that you would be better off or of hurting yourself in some way: not at all Total score: 0 Depression Screening Interpretation: Negative Depression Screening Done: Yes 03293 - PHQ-9 Billing: Yes Source: Developed by Drs. Sung Whipple, Angelica Sutton, Tong Sawyer and colleagues, with an educational airam from [employer]. Thrive Questionnaire Date Thrive assessed: 08/28/24 I am a: Patient What is your living situation today?: I have a steady place to live Within the past 12 months, did the food you bought not last and you didn't have the money to get more?: I choose not to answer this question Within the past 12 months, did you worry whether your food would run out before you got money to buy more?: I choose not to answer this question Do you have trouble paying for medicines?: I choose not to answer this question Do you have trouble getting transportation to medical appointments?: I choose not to answer this question Do you have trouble paying your heating and electricity bill?: I choose not to answer this question Do you have trouble taking care of your child, family member or friend?: I choose not to answer this question Do you have trouble with day-to-day activities such as bathing, preparing meals, shopping, managing finances, etc.?: I choose not to answer this question Are you currently unemployed and looking for a job?: I choose not to answer this question Are you interested in more education?: I choose not to answer this question Please select the resources that you would like help with: None Currently or been in a relationship where the following occur: I choose not to answer THRIVE Score: 0 AUDIT C Alcohol Use Questionnaire (AUDIT-C) 1. How often do you have a drink containing alcohol?: 2-3 times a week 2. How many drinks containing alcohol do you have on a typical day when you are drinking?: 5 or 6 3. How often do you have six or more drinks on one occasion?: Weekly Total Score: 8 Score Reviewed/Action Taken: Yes SHAYAN-7 AMB Questionnaire SHAYAN-7 Date SHAYAN - 7 assessed: 08/28/24 Feeling nervous, anxious, or on edge: 3 = Nearly every day Not being able to stop or control worryin = Several days Worrying too much about different things: 1 = Several days Trouble relaxin = Several days Being so restless that it is hard to sit still: 1 = Several days Becoming easily annoyed or irritable: 1 = Several days Feeling afraid as if something awful might happen: 1 = Several days Total SHAYAN-7 score (0-4 normal; 5-9 mild; 10-14 moderate; 15-21 severe): 9 Source: Developed by Drs. Sung Whipple, Angelica Sutton, Tong Sawyer and colleagues, with an educational airam from [employer]. Review of Systems Const Denies chills, Reports difficulty sleeping, Reports fatigue, Denies fever(s), Denies headache(s) and Denies malaise Eyes Denies blurry vision, Denies change in vision, Denies irritation and Denies itchy eyes ENT Denies dysphagia, Denies dizziness, Denies otalgia, Denies headache(s), Denies nasal congestion, Denies neck pain, Denies odynophagia, Denies sinus pain and Denies sore throat Card Denies chest pain, Denies rapid heart rate, Denies irregular heart rhythm, Denies palpitations and Denies dyspnea Resp Denies chest congestion, Denies cough, Denies dyspnea and Denies wheezing GI Denies abdominal pain, Denies bloating, Denies constipation, Denies dysphagia, Denies heartburn, Denies diarrhea, Denies nausea, Denies odynophagia and Denies vomiting Denies hematuria, Denies urinary frequency, Denies dysuria, Denies urinary incontinence and Denies urinary urgency Musc Denies back pain, Reports arthralgias (frequent, especially in the morning and often in both hands/fingers), Denies joint swelling, Denies muscle weakness and Denies neck pain Skin/Breast Denies breast pain, Denies breast mass, Denies change in pigmentation, Denies lesions, Denies rash and Denies unusual bruising Neuro Denies dizziness, Denies headache(s) and Denies paresthesias Psych Reports anxiety and Denies depression Endo Reports fatigue and Denies palpitations Kuldeep/Lymph Denies easy bruising Aller/Immun Denies itchy eyes and Denies wheezing Physical exam (Primary Care) Vital Signs: Last Vital Signs Pulse 82 08/28/24 09:20 BP 134/80 08/28/24 09:20 Pulse Ox 97 08/28/24 09:20 Oxygen Delivery Method Room Air 08/28/24 09:20 BMI result Body Mass Index 38.5 Tobacco/Smoking Status: Tobacco use Status Tobacco use date assessed 08/28/24 08/28/24 09:22 Patient Tobacco Use Status Current someday Tobacco 08/28/24 09:22 Tobacco use type Cigarette 08/28/24 09:22 e-Cigarette/Vaping Use Never Used 08/28/24 09:22 PHQ-9: PHQ-9 Score PHQ-9: Total score 0 08/28/24 21:39 Depression Screening Interpretation: Negative Thrive Assessment: Date of Thrive Assessment Date Thrive assessed 08/28/24 08/28/24 09:22 Currently or been in a relationship where the following occur: I choose not to answer Const General: no acute distress, alert and awake Orientation/consciousness: patient oriented x3 HENMT Head: Yes normocephalic and Yes atraumatic Ears: external ears normal, TM's normal bilaterally and EAC's normal General nose exam: No nasal discharge present Face and sinus: Yes normal facial exam and Yes sinuses nontender Teeth and gingiva: dentition normal Throat: Yes posterior oropharynx normal and Yes tonsils normal (no TP congestion) Eyes Eyelids: Yes eyelids normal Conjunctivae: conjunctivae normal Pupils: Equal, round and reactive pupils present EOM: EOMs intact bilaterally Neck Neck: Yes supple and No lymphadenopathy Thyroid: Thyroid normal Resp Auscultation: clear to auscultation bilaterally, no rales and no wheezes Cardio Rate: regular rate Rhythm: regular rhythm Heart sounds: no murmurs GI Palpation (GI): Soft to palpation, nontender and No hepatosplenomegaly present Auscultation: normal bowel sounds General: Yes no CVA tenderness Back/Spine/Pelvis Back: no CVA tenderness Thoracic/Lumbar Spine: thoracic and lumbar spine normal to inspection Skin Lesions: no lesions Rashes: no rashes Neuro General: patient oriented x3, moves all extremities, no focal motor deficits and CN's II-XI intact bilaterally Cranial nerves: Yes Equal, round and reactive pupils present Cognition (Neuro): normal cognition Gait exam (Neuro): Normal gait present Extrem General: Yes no clubbing, cyanosis or edema Results Reviewed Results Reviewed: Laboratory Tests 08/10/24 10:23 WBC 8.3 Hgb 13.0 Hct 39.2 Plt Count 310 ESR 23 H Sodium 141 Potassium 3.6 Creatinine 1.02 Estimated GFR 59 Fasting Glucose 80 Calcium 9.5 AST 28 ALT 30 Triglycerides 51 Cholesterol 165 LDL Cholesterol, Calc 105 H HDL Cholesterol 50 25-OH Vitamin D Total 16.0 L TSH 4.66 H Free T4 1.18 Ur Specific Graham 1.025 Urine Protein Trace Urine Glucose (UA) Negative Urine Blood Negative Urine Nitrite Negative Ur Leukocyte Esterase Moderate (2+) H Coding Level of Care Code Est Pt Prev Care 40-64y(62576) Diagnoses Annual physical exam Z00.00 Essential hypertension I10 Moderate persistent asthma without complication J45.40 Asthma complication type: uncomplicated Asthma persistence: persistent Asthma severity: moderate Allergic rhinitis, unspecified seasonality, unspecified trigger J30.9 Allergic rhinitis seasonality: unspecified Allergic rhinitis trigger: unspecified Migraine without status migrainosus, not intractable, unspecified migraine type G43.909 Intractability: not intractable Migraine type: unspecified Status migrainosus presence: without status migrainosus Vitamin D deficiency E55.9 Gastroesophageal reflux disease without esophagitis K21.9 Esophagitis presence: without esophagitis Insomnia, unspecified type G47.00 Insomnia type: unspecified Anxiety F41.9 Smoker F17.200 Obesity (BMI 30-39.9) E66.9 Breast cancer screening by mammogram Z12.31 Cervical cancer screening Z12.4 Additional Codes PHQ-9 - 20447 - PHQ-9 Billing: Yes ([id number]) Assessment & Plan Assessment & Plan (1) Annual physical exam: Code(s): Z00.00 - Encounter for general adult medical examination without abnormal findings Category: Medical Plan: Results of her labs done a couple of weeks ago reviewed and discussed with patient She is overdue for her annual mammogram and yearly gynecology exam and pap smear and will be referred for these (2) Essential hypertension: Code(s): I10 - Essential (primary) hypertension Category: Medical Plan: Reinforced low sodium diet - goal is systolic BP of 120 mm or less Continue HCTZ 12.5 mg Q AM (3) Asthma: Code(s): J45.909 - Unspecified asthma, uncomplicated Category: Medical Qualifiers: Asthma complication type: uncomplicated Asthma persistence: persistent Asthma severity: moderate Qualified Code(s): J45.40 - Moderate persistent asthma, uncomplicated Plan: Controlled/stable lately Continue Advair Diskus 250-50 mcg 1 inhalation BID, Montelukast 10 mg QD and Ventolin HFA 2 inhalations Q 6 hours PRN She also has Albuterol nebulizer solution to use with her updraft when needed (4) Allergic rhinitis: Code(s): J30.9 - Allergic rhinitis, unspecified Category: Medical Qualifiers: Allergic rhinitis seasonality: unspecified Allergic rhinitis trigger: unspecified Qualified Code(s): J30.9 - Allergic rhinitis, unspecified Plan: Continue Loratadine 10 mg QD PRN and Fluticasone 50 mcg nasal spray QD PRN (5) Migraines: Code(s): G43.909 - Migraine, unspecified, not intractable, without status migrainosus Category: Medical Qualifiers: Intractability: not intractable Migraine type: unspecified Status migrainosus presence: without status migrainosus Qualified Code(s): G43.909 - Migraine, unspecified, not intractable, without status migrainosus Plan: Reinforced avoidance of all potential migraine triggers Continue Ibuprofen 600 mg Q 6 hours PRN (6) Vitamin D deficiency: Code(s): E55.9 - Vitamin D deficiency, unspecified Category: Medical Plan: Continue Vitamin D3 2000 units QD Will recheck her Vitamin D level and labs in 4 months for follow up (7) Gastroesophageal reflux disease: Code(s): K21.9 - Gastro-esophageal reflux disease without esophagitis Category: Medical Qualifiers: Esophagitis presence: without esophagitis Qualified Code(s): K21.9 - Gastro-esophageal reflux disease without esophagitis Plan: Dietary restrictions reinforced Continue Famotidine 40 mg BID PRN (8) Insomnia: Code(s): G47.00 - Insomnia, unspecified Category: Medical Qualifiers: Insomnia type: unspecified Qualified Code(s): G47.00 - Insomnia, unspecified Plan: Sleep hygiene reinforced Have advised patient that her problems with sleeping lately appears to be related or at least partly due to her anxiety Will start her for now on Trazodone 50 mg Q HS and Clonidine 0.2 mg Q HS PRN Will also have her try taking some oral Magnesium tablets 400 mg Q HS (9) Anxiety: Code(s): F41.9 - Anxiety disorder, unspecified Category: Medical Plan: Continue Lorazepam 1 mg TID PRN (10) Smoker: Code(s): F17.200 - Nicotine dependence, unspecified, uncomplicated Category: Social Hx Plan: Patient is counseled again on smoking cessation (11) Obesity (BMI 30-39.9): Code(s): E66.9 - Obesity, unspecified Category: Medical Plan: Reinforced diet/exercise as tolerated/lose weight (12) Breast cancer screening by mammogram: Code(s): Z12.31 - Encounter for screening mammogram for malignant neoplasm of breast Category: Medical Plan: Annual mammogram prdered - she is past due (13) Cervical cancer screening: Code(s): Z12.4 - Encounter for screening for malignant neoplasm of cervix Category: Medical Plan: Will also refer patient to gynecology for her annual gynecology exam and pap smear - she is also past due Plan Follow up in 4 months Orders: Orders MM tomosynthesis screening BI 08/28/24 Z12.31 - Encounter for screening mammogram for malignant neoplasm of breast C Reactive Protein 4 Months M25.50 - Pain in unspecified joint, R53.83 - Other fatigue Rheumatoid Factor 4 Months M25.50 - Pain in unspecified joint, R53.83 - Other fatigue Complete Blood Count Auto Diff 4 Months D64.9 - Anemia, unspecified, M25.50 - Pain in unspecified joint, R53.83 - Other fatigue Comprehensive Met. Panel 4 Months M25.50 - Pain in unspecified joint, R53.83 - Other fatigue TSH reflex Free T4 4 Months E78.00 - Pure hypercholesterolemia, unspecified, M25.50 - Pain in unspecified joint, R53.83 - Other fatigue Erythrocyte Sedimentation Rate 4 Months M25.50 - Pain in unspecified joint, M79.7 - Fibromyalgia, R53.83 - Other fatigue ABEL Reflex Titer and Pattern 4 Months M25.50 - Pain in unspecified joint, R53.83 - Other fatigue Vitamin B12 and Folate 4 Months E53.8 - Deficiency of other specified B group vitamins, M25.50 - Pain in unspecified joint, R53.83 - Other fatigue Referrals CARDIOLOGY TECHNOLOGIST Referral Z12.4 - Encounter for screening for malignant neoplasm of cervix Medications: New magnesium oxide (MagOx) 400 mg PO BEDTIME 90 tabs 1RF 90 days trazodone 50 mg PO BEDTIME PRN 30 tabs 3RF sleep 30 days clonidine HCl 0.2 mg PO BEDTIME 30 tabs 3RF 30 days
== END 2024-08-28 10:01 | disposition home or self-care (01) ==
PROVIDERS: PCP Internal Medicine; Visit Provider Internal Medicine
DX: Z00.00 Encounter for general adult medical examination without abnormal findings (principal); I10 Essential (primary) hypertension; E66.9 Obesity, unspecified; Z68.38 Body mass index [BMI] 38.0-38.9, adult; J45.40 Moderate persistent asthma, uncomplicated; J30.9 Allergic rhinitis, unspecified; G43.909 Migraine, unspecified, not intractable, without status migrainosus; E55.9 Vitamin D deficiency, unspecified; K21.9 Gastro-esophageal reflux disease without esophagitis; G47.00 Insomnia, unspecified; F41.9 Anxiety disorder, unspecified; F17.200 Nicotine dependence, unspecified, uncomplicated

== ENCOUNTER → 2024-08-28 09:18 | Outpatient (BNVA) | payer OTHER, SELFPAY | PROVIDERS: PCP Internal Medicine; Visit Provider Internal Medicine | DX: Z00.00 Encounter for general adult medical examination without abnormal findings (principal); I10 Essential (primary) hypertension; J45.40 Moderate persistent asthma, uncomplicated; J30.9 Allergic rhinitis, unspecified; E55.9 Vitamin D deficiency, unspecified; K21.9 Gastro-esophageal reflux disease without esophagitis; G47.00 Insomnia, unspecified; F41.9 Anxiety disorder, unspecified; E66.9 Obesity, unspecified; F17.200 Nicotine dependence, unspecified, uncomplicated; Z71.6 Tobacco abuse counseling | CPT/HCPCS: 96127; 99396 ==

== ENCOUNTER 2024-10-17 10:35 | Outpatient (REF) | payer OTHER, SELFPAY ==
--- OUTSIDE RECORDS SUMMARY | 2024-10-17 14:10 | XMS_ITS | Encounter Summary ---
Author Organization [facility] Address [address] [place] [address] Care Team Providers Care Tin Can Feeder Name Role Phone Unavailable Primary Care Provider Unavailabl e Encounter Details Date Type Department Care Team (Latest Contact Info) Description 11/04/2021 Abstract [facility] CONVERSIONS Dental, Provider, DDS Social History Tobacco Use Types Packs/Day Years Used Date Smoking Tobacco: Never Assessed Comments Unknown Sex and Gender Information Value Date Recorded Sex Assigned at Female 07/18/2022 10:39 AM EDT Legal Sex Female 10:39 AM EDT Gender Identity Female 07/18/2022 10:39 AM EDT Sexual Orientation Don't know 07/18/2022 10 :39 AM EDT documented as of this encounter Plan of Treatment Not on file documented as of this encounter Visit Diagnoses Not on filedocumented in this encounter
--- OUTSIDE RECORDS SUMMARY | 2024-10-17 14:10 | XMS_ITS | Clinical Summary ---
Author Organization [facility] Address [address] [place] [address] Care Team Providers Care Fine Chemicals Operator Name Role Phone Unavailable Primary Care Provider Unavailabl e Social History Tobacco Use Types Packs/Day Years Used Date Smoking Tobacco: Never Assessed Comments Unknown Sex and Gender Information Value Date Recorded Sex Assigned at Female 07/18/2022 10:39 AM EDT Legal Sex Female 10:39 AM EDT Gender Identity Female 07/18/2022 10:39 AM EDT Sexual Orientation Don't know 07/18/2022 10 :39 AM EDT Plan of Treatment Health Maintenance Due Date Last Done Comments Depression Screening 1980 Alcohol/Substance Use Screening 1992 Tobacco Screening 1992 Family Planning (PISQ) 1995 DTaP/Tdap/Td Vaccines (1 - Tdap) 1999 Hepatitis B Vaccines (1 of 3 - 19+ 3-dose series) 1999 Pap Smear 2001 Cervical Cancer Screening 2010 HPV/Cotest 2010 Mammogram 2020 COVID-19 Vaccine ( - 2023-2 5 season) 2024 Influenza Vaccine (#1) 2024 Zoster Vaccines (1 of 2) 2030 RSV Patients and Pa tients Aged 60 years or older (1 - 1-dose 75+ series) 2055 HIB Vaccines Aged Out No longer eligi ble based on patient's age to complete this topic HPV Vaccines Aged Out No longer eligi ble based on patient's age to complete this topic Hepatitis A Vaccines Aged Out No long er eligible based on patient's age to complete this topic IPV Vaccines Aged Out No longer eligi ble based on patient's age to complete this topic Meningococcal Vaccine Aged Out No yahaira luis eligible based on patient's age to complete this topic Pneumococcal Vaccine: Pediat rics (0 to 5 Years) and At-Risk Patients (6 to 49) Years) Aged Out No longer eligible b ased on patient's age to complete this topic RSV under 20 months Aged Out No longe r eligible based on patient's age to complete this topic Rotavirus Vaccines Aged Out No longer eligible based on patient's age to complete this topic
[2024-10-17 14:45] LABS: Influenza A PCR POSITIVE (Negative); Influenza B PCR NEGATIVE (Negative); Resp Syncy Virus RNA Qual PCR NEGATIVE (Negative); SARS COV2 PCR INHOUSE NEGATIVE (Negative)
== END 2024-10-17 10:36 | disposition home or self-care (01) ==
LOC: HO.LAB 10:35
PROVIDERS: PCP Internal Medicine; Visit Provider Internal Medicine
DX: J98.8 Other specified respiratory disorders (principal)
CPT/HCPCS: 0241U

== ENCOUNTER → 2024-10-25 11:49 | Outpatient (AMB) | END | disposition home or self-care (01) ==

== ENCOUNTER → 2024-10-25 11:49 | Outpatient (BNVA) | DX: J10.1 Influenza due to other identified influenza virus with other respiratory manifestations (principal) | CPT/HCPCS: 99212 ==

== ENCOUNTER 2024-11-09 10:07 | Outpatient (REF) | payer OTHER, SELFPAY ==
--- OUTSIDE RECORDS SUMMARY | 2024-11-09 14:39 | XMS_ITS | Clinical Summary ---
Author Organization [employer] Address [address] [place] [address] Care Team Providers Care Floors Buffer Name Role Phone Unavailable Primary Care Provider [...]
--- OUTSIDE RECORDS SUMMARY | 2024-11-09 14:39 | XMS_ITS | Encounter Summary ---
Author Organization [facility] [employer] [facility] Address [address] [place] [address] Care Team Providers Care Ice Cream Maker Name Role Phone Unavailable Primary Care Provider Unavailabl e Encounter Details Date Type Department Care Team (Latest Contact Info) Description 11/04/2021 Abstract [facility] CONVERSIONS Dental, Provider, DDS Social History [...]
[2024-11-09 15:51] LABS: Appearance Urine Clear; Color Urine Yellow; Glucose Urine UA Negative (Negative); Leukocyte Esterase Urine Small (1+) (Negative); Nitrite Urine Negative (Negative); PH 6.5 (5.0-9.0); UMIC TRIGGER UACC YES; Urine Blood Negative (Negative); Urine Ketones Negative (Negative); Urine Protein Negative (Neg-Trace)
[2024-11-09 18:10] LABS: Bacteria Urine 1+ (None Seen); Hyaline Casts Urine 0-2 /LPF (0-2); RBC Urine 0-2 /HPF (0-2); UACC Culture Trigger YES; WBC Urine 0-5 /HPF (0-5)
[2024-11-10 09:14] LABS: Bacterial Vaginosis PCR NEGATIVE (Negative); Candida Group PCR NOT DETECTED (Not Detect); Candida glab krusei PCR NOT DETECTED (Not Detect); Trichomonas vaginalis PCR NOT DETECTED (Not Detect)
== END 2024-11-09 10:08 | disposition home or self-care (01) ==
LOC: HO.LAB 10:07
PROVIDERS: PCP Internal Medicine; Visit Provider Physician Assistant Medical
DX: N76.0 Acute vaginitis (principal); B96.89 Other specified bacterial agents as the cause of diseases classified elsewhere; N30.00 Acute cystitis without hematuria; R30.0 Dysuria
CPT/HCPCS: 81001; 81003; 81515; 87086; 99212

== ENCOUNTER 2024-11-09 10:07 | Outpatient (AMB) | payer OTHER, SELFPAY ==
[2024-11-09 11:48] VITALS: BP 130/92; PULSE 77; RESP 16; TEMP 37.2; O2SAT 98; BMI 37.4
--- NOTE | 2024-11-09 11:48 | AM.OFFWIN_ITS ---
Intake Vital Signs 11/09/24 11:48 Height 5 ft 3 in Weight 211 lb BMI 37.4 BP 130/92 H Blood Pressure Location Lt brachial Position Sitting Respiration 16 Pulse 77 Pulse Source Pulse Oximeter Temp 98.9 F Temp Source Oral Pulse Oximetry (%) 98 Oxygen Delivery Method Room Air Intake Visit Reasons: EP-UTI, cramps, burning/[phone] Intake Note: Pt is here today c/o ? UTI cramps and burning upon urination, also ?BV Patient Tobacco Use Status: Current someday Tobacco user Allergies shellfish derived [SHELLFISH DERIVED] Allergy (Unknown, Verified 11/09/24 12:10) ANAPHYLAXIS HPI EP-UTI, cramps, burning/[phone] HPI Details Patient is a 53-year-old female who does have history UTIs and yeast infections and bacterial vaginitis, and relates that she started feeling symptoms that seemed consistent with UTI about a week ago, with low back discomfort, suprapubic pressure, and dysuria. She reports that as of recently however, she also has been experiencing vaginal irritation and white discharge. She just completed a full course of a topical anti yeast medication, and reports that symptoms have not changed much. So now she is questioning bacterial vaginitis as well as a urinary tract infection. She denies high-risk sexual activity, as she is only with 1 partner of more than 2 decades. She does not feel like she needs STD testing, and declines it today. She denies nausea vomiting diarrhea, weakness or dizziness, respiratory symptoms, chest pain or shortness of breath, or other significant associated symptoms. [facility] Medical History Insomnia Migraines Gastroesophageal reflux disease Essential hypertension Anxiety Allergic rhinitis Asthma Obesity (BMI 30-39.9) Smoker Cough variant asthma Vitamin D deficiency Surgical History No pertinent past surgical history Family History Father Hypertension Diabetes Mother Diabetes Hypertension Anemia Arthritis Hyperthyroidism Son Autism Chronic mental illness Maternal Aunt Cancer Social History Household Members: Spouse and Children Housing: House Alcohol intake: current Alcohol intake frequency: holidays/special occasions only Alcohol type: other Patient Tobacco Use Status: Current someday Tobacco user Tobacco use type: Cigarette Cigarettes Per Day: 1 e-Cigarette/Vaping Use: Never Used Second Hand Smoke Exposure: Yes service: No Current occupational status: employed 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 Current occupational exposures/hazards: No Sexual orientation: Straight/Heterosexual Gender identity: Female Cognitive needs: No Hearing needs: No Vision needs: No Female Reproductive History Menstrual Age of Menarche: 8 Review of Systems Const All systems reviewed & are unremarkable except as noted in HPI and below Physical Exam Vital Signs: Last Vital Signs Temp 98.9 F 11/09/24 11:48 Pulse 77 11/09/24 11:48 Resp 16 11/09/24 11:48 BP 130/92 H 11/09/24 11:48 Pulse Ox 98 11/09/24 11:48 Oxygen Delivery Method Room Air 11/09/24 11:48 BMI result Body Mass Index 37.4 Results AMB Urinalysis, Automated UA Leukoctes 0 Adriana/uL Last Edit by Priya Mercado CMA on 11/09/24 12:00 UA Nitrite Negative Last Edit by Priya Mercado CMA on 11/09/24 12:00 UA Urobilinogen 0.2 mg/dL Last Edit by Priya Mercado CMA on 11/09/24 12:00 UA Protein 0 mg/dL Last Edit by Priya Mercado CMA on 11/09/24 12:00 UA pH 6.0 Last Edit by Priya Mercado CMA on 11/09/24 12:00 UA Blood 0 Kike/uL Last Edit by Priya Mercado CMA on 11/09/24 12:00 UA Specific [place] 1.015 Last Edit by Priya Mercado CMA on 11/09/24 12:00 UA Ketone Negative Last Edit by Priya Mercado CMA on 11/09/24 12:00 UA Bilirubin 0 mg/dL Last Edit by Priya Mercado CMA on 11/09/24 12:00 UA Glucose 0 mg/dL Last Edit by Priya Mercado CMA on 11/09/24 12:00 Results Reviewed Results Reviewed: Laboratory Last Values Urine pH (Auto) 6.0 11/09/24 11:58 Specific [place] (Auto) 1.015 11/09/24 11:58 Urine Protein (Auto) 0 mg/dL 11/09/24 11:58 Glucose (UA)(Auto) 0 mg/dL 11/09/24 11:58 Urine Ketones (Auto) Negative 11/09/24 11:58 Urine Blood (Auto) 0 Kike/uL 11/09/24 11:58 Urine Nitrite (Auto) Negative 11/09/24 11:58 Urine Bilirubin (Auto) 0 mg/dL 11/09/24 11:58 Urine Urobilinogen (Auto) 0.2 mg/dL 11/09/24 11:58 Leukocyte Esterase (Auto) 0 Adriana/uL 11/09/24 11:58 Assessment & Plan Assessment & Plan (1) Vaginitis: Code(s): N76.0 - Acute vaginitis Qualifiers: Chronicity: acute Qualified Code(s): N76.0 - Acute vaginitis Plan: Patient is a 53-year-old female who does have history UTIs and yeast infections and bacterial vaginitis, and relates that she started feeling symptoms that seemed consistent with UTI about a week ago, with low back discomfort, suprapubic pressure, and dysuria. She reports that as of recently however, she also has been experiencing vaginal irritation and white discharge. She just completed a full course of a topical anti yeast medication, and reports that symptoms have not changed much. So now she is questioning bacterial vaginitis as well as a urinary tract infection. She denies high-risk sexual activity, as she is only with 1 partner of more than 2 decades. She does not feel like she needs STD testing, and declines it today. She denies nausea vomiting diarrhea, weakness or dizziness, respiratory symptoms, chest pain or shortness of breath, or other significant associated symptoms. (2) Urinary tract infection: Code(s): N39.0 - Urinary tract infection, site not specified Qualifiers: Hematuria presence: without hematuria Urinary tract infection type: acute cystitis Qualified Code(s): N30.00 - Acute cystitis without hematuria Orders: Orders Bacterial Vaginosis Panel Today B96.89 - Other specified bacterial agents as the cause of diseases classified elsewhere, N76.0 - Acute vaginitis AMB Urinalysis Automated Today Z13.9 - Encounter for screening, unspecified UA CC w/rflx Micro + Cult Today R30.0 - Dysuria Medications: New nitrofurantoin monohyd/m-cryst 100 mg (Macrobid) must administer with a meal/food 100 mg PO Q12H 10 caps 0RF 5 days N39.0 - Urinary tract infection, site not specified metronidazole 500 mg PO BID 14 tabs 0RF 7 days Coding Level of Care Code Est Pt Level 4 (39694) Diagnoses Acute vaginitis N76.0 Chronicity: acute Acute cystitis without hematuria N30.00 Hematuria presence: without hematuria Urinary tract infection type: acute cystitis
== END 2024-11-09 13:45 | disposition home or self-care (01) ==
PROVIDERS: PCP Internal Medicine; Visit Provider Physician Assistant Medical
DX: Z13.9 Encounter for screening, unspecified (principal)

== ENCOUNTER 2025-01-08 07:11 | Outpatient (REF) | payer OTHER, SELFPAY ==
--- OUTSIDE RECORDS SUMMARY | 2025-01-08 07:13 | XMS_ITS | Encounter Summary ---
Author Organization [facility] [employer] [facility] Address [address] [place] [address] Care Team Providers Care Shaper Set Up Operator Name Role Phone Unavailable Primary Care Provider Unavailabl e Encounter Details Date Type Department Care Team (Latest Contact Info) Description 11/04/2021 Abstract [facility] CONVERSIONS Dental, Provider, DDS Social History Tobacco [...]
--- OUTSIDE RECORDS SUMMARY | 2025-01-08 07:13 | XMS_ITS | Clinical Summary ---
Author Organization [employer] Address [address] [place] [address] Care Team Providers Care Building Carpenter Name Role Phone Unavailable Primary Care Provider [...]
[2025-01-08 07:32] LABS: MANUAL DIFF FLAG NO
[2025-01-08 08:01] LABS: Basophils Percent Auto 0.4 % (0-2); Eosinophils Absolute Auto 0.3 X10*3/uL (0.0-0.4); Eosinophils Percent Auto 3.8 % (0-4); Hematocrit 38.7 % (37.0-47.0); Imm Gran Abs Auto 0.03 X10*3/uL (0.00-0.03); Imm Gran Pct Auto 0.4 % (0.0-0.4); Lymphocytes Absolute Auto 2.8 X10*3/uL (1.2-4.9); Lymphocytes Percent Auto 36.8 % (20-40); Mean Corpuscular HGB Conc 33.6 g/dl (31.0-35.0); Mean Corpuscular Hemoglobin 30.4 pg (27.0-33.0); Mean Corpuscular Volume 90.4 fL (80.0-98.0); Mean Platelet Volume 9.9 fL (9.4-12.3); Monocytes Absolute Auto 0.6 X10*3/uL (0.1-1.2); Monocytes Percent Auto 7.7 % (2-11); Neutrophils Absolute Auto 3.9 x10*3/uL (2.0-8.3); Neutrophils Percent Auto 50.9 % (45-73); Platelet Count 262 X10*3/uL (160-400); Red Blood Count 4.28 X10*6/uL (4.20-5.50); Red Cell Distribution Width 13.7 % (11.0-16.0); White Blood Count 7.7 X10*3/uL (4.8-10.8)
[2025-01-08 08:39] LABS: Erythrocyte Sedimentation Rate 13 MM/HR (0-20)
[2025-01-08 08:55] LABS: Rheumatoid Factor < 13.0 IU/mL (<15.0)
[2025-01-08 08:55] LABS: Appearance Urine Cloudy; Color Urine Yellow; Glucose Urine UA Negative (Negative); Leukocyte Esterase Urine Negative (Negative); Nitrite Urine Negative (Negative); PH 5.5 (5.0-9.0); Specific Gravity - Urine 1.025 (1.005-1.025); Urine Blood Negative (Negative); Urine Ketones Negative (Negative); Urine Protein Trace mg/dL (Neg-Trace)
[2025-01-08 08:59] LABS: Alanine Aminotransferase 27 U/L (0-31); Albumin Level 3.7 g/dL (3.5-5.0); Alkaline Phosphatase 66 U/L (39-117); Anion Gap 11 (12-20); Aspartate Amino Transferase 24 U/L (5-31); Bilirubin Total 0.2 mg/dL (0.0-1.0); Blood Urea Nitrogen 15 mg/dL (9-16); C Reactive Protein 1.49 mg/dL (< or = 0.50); Calcium 8.7 mg/dL (8.4-10.2); Carbon Dioxide 26 mmol/L (22-29); Chloride 108 mmol/L (96-108); Estimated Glomerular Filt Rate > 60; Glucose Random 93 mg/dL (60-115); Potassium 3.6 mmol/L (3.3-5.1); Sodium 141 mmol/L (135-145); Total Protein 6.9 g/dL (6.5-8.0)
[2025-01-08 09:15] LABS: TSH reflex Free T4 6.59 uIU/mL (0.32-4.0)
[2025-01-08 09:22] LABS: Folate 7.6 ng/mL (> or = 4.0); Vitamin B12 256 pg/mL (200-900)
[2025-01-08 10:12] LABS: Free T4 (Free Thyroxine) 0.96 ng/dL (0.71-1.85)
[2025-01-10 15:13] LABS: Anti Nuclear Antibody Screen NEGATIVE (NEGATIVE)
== END 2025-01-08 07:12 | disposition home or self-care (01) ==
LOC: HO.LAB 07:11
PROVIDERS: PCP Internal Medicine; Visit Provider Internal Medicine
DX: M25.50 Pain in unspecified joint (principal); R53.83 Other fatigue; R30.0 Dysuria; D64.9 Anemia, unspecified; E78.00 Pure hypercholesterolemia, unspecified; M79.7 Fibromyalgia; E53.8 Deficiency of other specified B group vitamins
CPT/HCPCS: 36415; 80053; 81003; 82607; 82746; 84439; 84443; 85025; 85652; 86038; 86140; 86431

== ENCOUNTER 2025-01-15 14:15 | Outpatient (AMB) | payer OTHER, SELFPAY ==
[2025-01-15 14:19] VITALS: BP 122/84; PULSE 64; O2SAT 98; BMI 39.0
--- NOTE | 2025-01-15 14:19 | MHC.PC.OV ---
Vital Signs 01/15/25 14:19 Height 5 ft 3 in Weight 220 lb 6 oz BMI 39.0 BP 122/84 Blood Pressure Location Lt brachial Position Sitting Pulse 64 Pulse Source Pulse Oximeter Pulse Oximetry (%) 98 Oxygen Delivery Method Room Air Intake Visit Reasons: 4mth f/u, resched Data Processing Manager Required: No Accompanied by: Self / Same As Patient Allergies shellfish derived [SHELLFISH DERIVED] Allergy (Unknown, Verified 01/15/25 14:42) ANAPHYLAXIS Medication List - Last Reconciled 01/15/25 by Adam Wharton MD Advair Diskus 250-50 mcg/dose (fluticasone propion-salmeterol) 1 inh inhalation BID NS albuterol sulfate 2.5 mg (3 mL) continuous nebulization Q6-8H PRN cholecalciferol (vitamin D3) 50 mcg PO DAILY 90 days clonidine HCl 0.2 mg PO BEDTIME epinephrine 0.3 mg (0.3 mL) IM Q4H PRN famotidine 40 mg PO BID PRN fluticasone propionate 50 mcg/actuation (Flonase Allergy Relief) 1 spray intranasal DAILY hydrochlorothiazide 12.5 mg PO QAM 90 days ibuprofen 600 mg PO Q6H PRN lidocaine 5% 1 patch topical DAILY PRN 30 days loratadine 10 mg PO DAILY PRN 90 days lorazepam 1 mg PO TID PRN 30 days magnesium oxide (MagOx) 400 mg PO BEDTIME 90 days montelukast 10 mg PO DAILY 90 days trazodone 50 mg PO BEDTIME PRN Ventolin HFA 90 mcg/actuation (albuterol sulfate) 2 puffs inhalation Q6H PRN NS Tobacco use date assessed: 01/15/25 Dental Screening Dental Screen Date: 01/15/25 HPI 4mth f/u, resched HPI Details Patient comes in today for her follow up visit States that she has been feeling very tired and fatigued constantly lately She has also noticed (+) significant thinning of her hair / hair loss lately and has gained a lot of weight over the past few months Reports that she has not had her menstrual period in about 10 months now States that she had menarche at around 8 yrs old She denies any headaches or dizziness lately Denies any chest pains; has noticed (+) on and off chest tightness and occasional wheezing lately States that she is only using her Albuterol inhaler as needed - has been using it more often lately and needs her Rx refilled She was supposed to be on Advair Diskus for her controller inhaler but states that her insurance is charging her a large copay for her Rx and she cannot afford that on the income that she has No nausea/vomiting, no abdominal pain No change in bowel habits noted She had some follow up labs done last week and would like to know how she did on her labs and if there is anything there that would help explain her symptoms [facility] Medical History Insomnia Migraines Gastroesophageal reflux disease Essential hypertension Anxiety Allergic rhinitis Asthma Obesity (BMI 30-39.9) Smoker Cough variant asthma Vitamin D deficiency Surgical History No pertinent past surgical history Family History Father Hypertension Diabetes Mother Diabetes Hypertension Anemia Arthritis Hyperthyroidism Son Autism Chronic mental illness Maternal Aunt Cancer Social History Household Members: Spouse and Children Housing: House Alcohol intake: current Alcohol intake frequency: holidays/special occasions only Alcohol type: other Patient Tobacco Use Status: Current someday Tobacco user Tobacco use type: Cigarette Cigarettes Per Day: 1 e-Cigarette/Vaping Use: Never Used Second Hand Smoke Exposure: Yes service: No Current occupational status: employed 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 1. Little interest or pleasure in doing things: several days 2. Feeling down, depressed, or hopeless: several days 3. Trouble falling or staying asleep, or sleeping too much: several days 4. Feeling tired or having little energy: several days 5. Poor appetite or overeating: several days 6. Feeling bad about yourself - or that you are a failure or have let yourself or your family down: not at all 7. Trouble concentrating on things, such as reading the newspaper or watching television: not at all 8. Moving or speaking so slowly that other people could have noticed. Or the opposite - being so fidgety or restless that you have been moving around a lot more than usual: not at all 9. Thoughts that you would be better off or of hurting yourself in some way: not at all Total score: 5 Depression Screening Interpretation: Positive Depression Screening Follow-up: Existing condition and In treatment Depression Screening Done: Yes 24650 - PHQ-9 Billing: Yes Source: Developed by Drs. Sung Whipple, Angelica Sutton, Tong Sawyer and colleagues, with an educational airam from [employer]. Thrive Questionnaire Date Thrive assessed: 01/15/25 I am a: Patient What is your living situation today?: I have a steady place to live Within the past 12 months, did the food you bought not last and you didn't have the money to get more?: I choose not to answer this question Within the past 12 months, did you worry whether your food would run out before you got money to buy more?: I choose not to answer this question Do you have trouble paying for medicines?: I choose not to answer this question Do you have trouble getting transportation to medical appointments?: I choose not to answer this question Do you have trouble paying your heating and electricity bill?: I choose not to answer this question Do you have trouble taking care of your child, family member or friend?: I choose not to answer this question Do you have trouble with day-to-day activities such as bathing, preparing meals, shopping, managing finances, etc.?: I choose not to answer this question Are you currently unemployed and looking for a job?: I choose not to answer this question Are you interested in more education?: I choose not to answer this question Please select the resources that you would like help with: None Currently or been in a relationship where the following occur: I choose not to answer THRIVE Score: 0 AUDIT C Alcohol Use Questionnaire (AUDIT-C) 1. How often do you have a drink containing alcohol?: Never 3. How often do you have six or more drinks on one occasion?: Never Total Score: 0 Score Reviewed/Action Taken: Yes SHAYAN-7 AMB Questionnaire SHAYAN-7 Date SHAYAN - 7 assessed: 01/15/25 Feeling nervous, anxious, or on edge: 0 = Not at all Not being able to stop or control worryin = Not at all Worrying too much about different things: 0 = Not at all Trouble relaxin = Not at all Being so restless that it is hard to sit still: 0 = Not at all Becoming easily annoyed or irritable: 0 = Not at all Feeling afraid as if something awful might happen: 0 = Not at all Total SHAYAN-7 score (0-4 normal; 5-9 mild; 10-14 moderate; 15-21 severe): 0 Source: Developed by Drs. Sung Whipple, Angelica Sutton, Tong Sawyer and colleagues, with an educational airam from [employer]. Review of Systems Const Denies chills, Reports fatigue, Denies fever(s), Denies headache(s) and Reports weight gain ENT Denies dysphagia, Denies dizziness, Denies otalgia, Denies headache(s), Denies neck pain, Denies odynophagia and Denies sore throat Card Denies chest pain, Denies palpitations and Reports dyspnea on exertion Resp Denies chest congestion (but chest feels tight at times), Reports cough (occasional, non-productive), Reports dyspnea on exertion and Reports wheezing (at times) GI Denies abdominal pain, Denies constipation, Denies dysphagia, Denies heartburn, Denies diarrhea, Denies nausea, Denies odynophagia and Denies vomiting Denies difficulty voiding, Denies nocturia, Denies dysuria and Denies urinary urgency Musc Denies back pain, Reports myalgias and Denies neck pain Skin/Breast Reports alopecia (thinning) and Denies rash Neuro Denies dizziness and Denies headache(s) Endo Reports fatigue and Denies palpitations Aller/Immun Reports wheezing (at times) Physical exam (Primary Care) Vital Signs: Last Vital Signs Pulse 64 01/15/25 14:19 BP 122/84 01/15/25 14:19 Pulse Ox 98 01/15/25 14:19 Oxygen Delivery Method Room Air 01/15/25 14:19 BMI result Body Mass Index 39.0 Tobacco/Smoking Status: Tobacco use Status Tobacco use date assessed 01/15/25 01/15/25 14:22 Patient Tobacco Use Status Current someday Tobacco 01/15/25 14:22 Tobacco use type Cigarette 01/15/25 14:22 e-Cigarette/Vaping Use Never Used 01/15/25 14:22 PHQ-9: PHQ-9 Score PHQ-9: Total score 5 01/15/25 15:08 Depression Screening Interpretation: Positive Depression Screening Follow-up: Existing condition and In treatment Thrive Assessment: Date of Thrive Assessment Date Thrive assessed 01/15/25 01/15/25 14:22 Currently or been in a relationship where the following occur: I choose not to answer Const General: no acute distress and alert HENMT Ears: TM's normal bilaterally and EAC's normal Throat: Yes posterior oropharynx normal and Yes tonsils normal (no TP congestion) Neck Neck: Yes supple and No lymphadenopathy Thyroid: Thyroid normal, no masses and no nodules Resp Auscultation: clear to auscultation bilaterally, no crackles, no rales and wheezes (occasional, faint) expiratory wheezes Cardio Rate: regular rate Rhythm: regular rhythm Heart sounds: no murmurs GI Palpation (GI): Soft to palpation and nontender Auscultation: normal bowel sounds General: Yes no CVA tenderness Back/Spine/Pelvis Back: no CVA tenderness Thoracic/Lumbar Spine: No lumbar spinal tenderness Skin Rashes: no rashes Extrem General: Yes no clubbing, cyanosis or edema Results Reviewed Results Reviewed: Laboratory Tests 01/08/25 01/08/25 07:26 07:30 WBC 7.7 Hgb 13.0 Hct 38.7 Plt Count 262 ESR 13 Sodium 141 Potassium 3.6 Creatinine 0.88 Estimated GFR > 60 Random Glucose 93 Calcium 8.7 D AST 24 ALT 27 C-Reactive Protein 1.49 H Vitamin B12 256 TSH 6.59 H Free T4 0.96 Ur Specific [place] 1.025 Urine Protein Trace Urine Glucose (UA) Negative Urine Blood Negative Urine Nitrite Negative Ur Leukocyte Esterase Negative Rheumatoid Factor < 13.0 ABEL Screen NEGATIVE Coding Level of Care Code Est Pt Level 4 (53671) Diagnoses Elevated TSH R79.89 Essential hypertension I10 Moderate persistent asthma without complication J45.40 Asthma severity: moderate Asthma persistence: persistent Asthma complication type: uncomplicated Allergic rhinitis, unspecified seasonality, unspecified trigger J30.9 Allergic rhinitis trigger: unspecified Allergic rhinitis seasonality: unspecified Migraine without status migrainosus, not intractable, unspecified migraine type G43.909 Migraine type: unspecified Status migrainosus presence: without status migrainosus Intractability: not intractable Vitamin D deficiency E55.9 Gastroesophageal reflux disease without esophagitis K21.9 Esophagitis presence: without esophagitis Insomnia, unspecified type G47.00 Insomnia type: unspecified Anxiety F41.9 Smoker F17.200 Obesity (BMI 30-39.9) E66.9 Additional Codes PHQ-9 - 52488 - PHQ-9 Billing: Yes ([id number]) Assessment & Plan Assessment & Plan (1) Elevated TSH: Code(s): R79.89 - Other specified abnormal findings of blood chemistry Category: Medical Plan: Will send patient for some additional labs for further evaluation of her elevated TSH level and her recent symptoms Will also try sending her for a thyroid ultrasound for further evaluation (2) Essential hypertension: Code(s): I10 - Essential (primary) hypertension Category: Medical Plan: Reinforced low sodium diet - goal is systolic BP of 120 mm or less Continue HCTZ 12.5 mg Q AM (3) Asthma: Code(s): J45.909 - Unspecified asthma, uncomplicated Category: Medical Qualifiers: Asthma severity: moderate Asthma persistence: persistent Asthma complication type: uncomplicated Qualified Code(s): J45.40 - Moderate persistent asthma, uncomplicated Plan: Controlled lately Continue Advair Diskus 250-50 mcg 1 inhalation BID but will try switching her over to a generic equivalent of her current inhaler due to cost of her insurance co-pay Continue Montelukast 10 mg QD and Ventolin HFA 2 inhalations Q 6 hours PRN She also has Albuterol nebulizer solution to use with her updraft when needed (4) Allergic rhinitis: Code(s): J30.9 - Allergic rhinitis, unspecified Category: Medical Qualifiers: Allergic rhinitis trigger: unspecified Allergic rhinitis seasonality: unspecified Qualified Code(s): J30.9 - Allergic rhinitis, unspecified Plan: Continue Loratadine 10 mg QD PRN and Fluticasone 50 mcg nasal spray QD PRN (5) Migraines: Code(s): G43.909 - Migraine, unspecified, not intractable, without status migrainosus Category: Medical Qualifiers: Migraine type: unspecified Status migrainosus presence: without status migrainosus Intractability: not intractable Qualified Code(s): G43.909 - Migraine, unspecified, not intractable, without status migrainosus Plan: Reinforced avoidance of all potential migraine triggers Continue Ibuprofen 600 mg Q 6 hours PRN (6) Vitamin D deficiency: Code(s): E55.9 - Vitamin D deficiency, unspecified Category: Medical Plan: Continue Vitamin D3 2000 units QD (7) Gastroesophageal reflux disease: Code(s): K21.9 - Gastro-esophageal reflux disease without esophagitis Category: Medical Qualifiers: Esophagitis presence: without esophagitis Qualified Code(s): K21.9 - Gastro-esophageal reflux disease without esophagitis Plan: Dietary restrictions reinforced Continue Famotidine 40 mg BID PRN (8) Insomnia: Code(s): G47.00 - Insomnia, unspecified Category: Medical Qualifiers: Insomnia type: unspecified Qualified Code(s): G47.00 - Insomnia, unspecified Plan: Sleep hygiene reinforced Have advised patient that her issues with sleeping appear to be at least partially due to her anxiety Continue Trazodone 50 mg Q HS and Clonidine 0.2 mg Q HS PRN Have also advised her to try taking some oral Magnesium tablets 400 mg Q HS (9) Anxiety: Code(s): F41.9 - Anxiety disorder, unspecified Category: Medical Plan: Continue Lorazepam 1 mg TID PRN (10) Smoker: Code(s): F17.200 - Nicotine dependence, unspecified, uncomplicated Category: Social Hx Plan: Patient is counseled again on complete smoking cessation (11) Obesity (BMI 30-39.9): Code(s): E66.9 - Obesity, unspecified Category: Medical Plan: Reinforced diet/exercise as tolerated/lose weight Plan Follow up in 4 months Orders: Orders Free T4 (Free Thyroxine) 01/15/25 R7.89 - Other specified abnormal findings of blood chemistry Thyroid Peroxidase Antibodies 01/15/25. - Other specified abnormal findings of blood chemistry Thyroid Stimulating Hormone 01/15/25. - Other specified abnormal findings of blood chemistry Triiodothyronine T3 Total 01/15/25. - Other specified abnormal findings of blood chemistry US thyroid 01/15/25 E04.1 - Nontoxic single thyroid nodule, - Other specified abnormal findings of blood chemistry Thyroglobulin Antibodies 04/30/25 R79.89 - Other specified abnormal findings of blood chemistry Medications: Changed From Advair Diskus 250-50 mcg/dose (fluticasone propion-salmeterol) 1 inh inhalation BID 60 ea 3RF NS To fluticasone propion-salmeterol 250-50 mcg/dose (Advair Diskus) 1 inh inhalation BID 60 ea 3RF 30 days Refilled Ventolin HFA 90 mcg/actuation (albuterol sulfate) 2 puffs inhalation Q6H PRN 18 grams 3RF shortness of breath or wheezing NS cholecalciferol (vitamin D3) 50 mcg PO DAILY 90 caps 3RF 90 days E55.9 - Vitamin D deficiency, unspecified
--- OUTSIDE RECORDS SUMMARY | 2025-01-15 15:38 | XMS_ITS | Encounter Summary ---
Author Organization [employer] [facility] Address [address] [place] [address] Care Team Providers Care Administrative And Program Specialist Name Role Phone Unavailable Primary Care Provider Unavailabl e Encounter Details Date Type Department Care Team (Latest Contact Info) Description 11/04/2021 Abstract [facility] CONVERSIONS Dental, Provider, DDS Social History [...]
--- OUTSIDE RECORDS SUMMARY | 2025-01-15 15:38 | XMS_ITS | Clinical Summary ---
Author Organization [employer] Address [address] [place] [address] Care Team Providers Care Well Drill Operator Helper Cable Tool Name Role Phone Unavailable Primary Care Provider [...]
== END 2025-01-15 14:54 | disposition home or self-care (01) ==
LOC: HO.HMCH 14:16
PROVIDERS: PCP Internal Medicine; Visit Provider Internal Medicine
DX: R79.89 Other specified abnormal findings of blood chemistry (principal); I10 Essential (primary) hypertension; E66.9 Obesity, unspecified; Z68.39 Body mass index [BMI] 39.0-39.9, adult; J45.40 Moderate persistent asthma, uncomplicated; J30.9 Allergic rhinitis, unspecified; G43.909 Migraine, unspecified, not intractable, without status migrainosus; E55.9 Vitamin D deficiency, unspecified; K21.9 Gastro-esophageal reflux disease without esophagitis; G47.00 Insomnia, unspecified; F41.9 Anxiety disorder, unspecified; F17.200 Nicotine dependence, unspecified, uncomplicated

== ENCOUNTER 2025-01-15 14:15 | Outpatient (REF) | payer OTHER, SELFPAY ==
[2025-01-15 16:02] LABS: Thyroid Stimulating Hormone 4.57 uIU/mL (0.32-4.0)
--- OUTSIDE RECORDS SUMMARY | 2025-01-15 16:08 | XMS_ITS | Encounter Summary ---
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
--- OUTSIDE RECORDS SUMMARY | 2025-01-15 16:08 | XMS_ITS | Clinical Summary ---
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
[2025-01-16 04:59] LABS: Triiodothyronine T3 Total 113 ng/dL (76-181)
[2025-01-16 22:14] LABS: Thyroid Peroxidase Antibodies 1 IU/mL (<9)
[2025-01-17 17:49] LABS: Thyroglobulin Antibodies <1 IU/mL (< or = 1)
== END 2025-01-15 14:16 | disposition home or self-care (01) ==
LOC: HO.LAB 14:15
PROVIDERS: PCP Internal Medicine; Visit Provider Internal Medicine
DX: R94.6 Abnormal results of thyroid function studies (principal); I10 Essential (primary) hypertension; J45.40 Moderate persistent asthma, uncomplicated; J30.9 Allergic rhinitis, unspecified; G43.909 Migraine, unspecified, not intractable, without status migrainosus; E55.9 Vitamin D deficiency, unspecified; K21.9 Gastro-esophageal reflux disease without esophagitis; G47.00 Insomnia, unspecified; F41.9 Anxiety disorder, unspecified; E66.9 Obesity, unspecified; Z68.39 Body mass index [BMI] 39.0-39.9, adult; F17.200 Nicotine dependence, unspecified, uncomplicated; Z79.899 Other long term (current) drug therapy
CPT/HCPCS: 36415; 84439; 84443; 84480; 86376; 86800; 96127; 99212

== ENCOUNTER 2025-01-22 08:38 | Emergency (ER) | payer OTHER, SELFPAY ==
--- NOTE | 2025-01-22 08:44 | ECG_ITS ---
Test Reason : chest pain Blood Pressure : */* mmHG Vent. Rate : 76 BPM Atrial Rate : 76 BPM P-R Int : 142 ms QRS Dur : 82 ms QT Int : 352 ms P-R-T Axes : 31 3 0 degrees QTcB Int : 396 ms Normal sinus rhythm Nonspecific T wave abnormality Abnormal ECG When compared with ECG of 23-Mar-2019 09:54, Nonspecific T wave abnormality now evident in Lateral leads Referred By: Generic ED Physician Electronically Signed By: LEA JOLLY
[2025-01-22 08:49] VITALS: BP 137/98; PULSE 75; RESP 18; TEMP 36.8; O2SAT 98; BMI 38.1
[2025-01-22 09:10] LABS: Basophils Percent Auto 0.4 % (0-2); Eosinophils Absolute Auto 0.3 X10*3/uL (0.0-0.4); Eosinophils Percent Auto 3.4 % (0-4); Hemoglobin 13.4 g/dl (12.0-16.0); Imm Gran Abs Auto 0.03 X10*3/uL (0.00-0.03); Imm Gran Pct Auto 0.4 % (0.0-0.4); Lymphocytes Absolute Auto 2.6 X10*3/uL (1.2-4.9); Lymphocytes Percent Auto 32.7 % (20-40); MANUAL DIFF FLAG NO; Mean Corpuscular HGB Conc 34.4 g/dl (31.0-35.0); Mean Corpuscular Hemoglobin 30.7 pg (27.0-33.0); Mean Corpuscular Volume 89.2 fL (80.0-98.0); Mean Platelet Volume 9.3 fL (9.4-12.3); Monocytes Absolute Auto 0.6 X10*3/uL (0.1-1.2); Monocytes Percent Auto 7.5 % (2-11); Neutrophils Absolute Auto 4.4 x10*3/uL (2.0-8.3); Neutrophils Percent Auto 55.6 % (45-73); Platelet Count 282 X10*3/uL (160-400); Red Blood Count 4.37 X10*6/uL (4.20-5.50); Red Cell Distribution Width 13.5 % (11.0-16.0)
--- NOTE | 2025-01-22 09:11 | ED_ITS ---
HPI - Chest Pain General Chief Complaint: Chest Pain Stated Complaint: L Side Chest Pain Time Seen by Provider: 01/22/25 09:11 Source: patient Mode of arrival: ambulatory Limitations: no limitations History of Present Illness ED Provider: Jodie Starks PA-C HPI narrative: Patient is a 44 year old assigned female at with a history of costochondritis, anxiety, HTN, and cervicalgia presenting to the emergency department today with left sided shoulder pain that radiates into the chest. Patient states that over the last day she has left sided chest pain that starts in the left shoulder. Patient states that she has been having issues of intermittent left arm weakness coming from the left shoulder. Patient states that she had an entire cardiac work up for similar symptoms years ago and it was determined then that she had costochondritis. Patient denies any dizziness, lightheadedness, abdominal pain, nausea, vomiting, fever, chills, blurry vision, double vision, loss of vision, difficulty breathing, shortness of breath, back pain, night sweats, pain with urination, increased urinary frequency, increased urinary urgency, blood in her urine or stool, syncope or a near syncopal episode, recent trauma or falls, bowel incontinence, bladder incontinence, or any other complaints at this time. Related Data Previous Rx's ?Medication ?Instructions ?Recorded lidocaine 5 % topical patch 1 patch topical DAILY PRN pain 30 07/07/21 days #30 ea epinephrine 0.3 mg/0.3 mL 0.3 mg (0.3 mL) IM Q4H PRN 09/19/22 injection, auto-injector anaphylaxis #2 ea fluticasone propionate 50 1 spray intranasal DAILY #150 mL 09/19/22 mcg/actuation nasal spray,suspension (Flonase Allergy Relief) albuterol sulfate 2.5 mg/3 mL 2.5 mg (3 mL) continuous 12/14/23 (0.083 %) solution for nebulization nebulization Q6-8H PRN bronchospasm #300 mL loratadine 10 mg tablet 10 mg PO DAILY PRN allergy 12/14/23 symptoms 90 days #90 tabs montelukast 10 mg tablet 10 mg PO DAILY 90 days #90 tabs 12/14/23 ibuprofen 600 mg tablet 600 mg PO Q6H PRN fever or pain 06/03/24 #30 tabs hydrochlorothiazide 12.5 mg capsule 12.5 mg PO QAM 90 days #90 caps 08/03/24 magnesium oxide 400 mg (241.3 mg 400 mg PO BEDTIME 90 days #90 tabs 08/28/24 magnesium) tablet (MagOx) clonidine HCl 0.2 mg tablet 0.2 mg PO BEDTIME #90 tabs 11/27/24 trazodone 50 mg tablet 50 mg PO BEDTIME PRN for insomnia 12/01/24 #90 tabs famotidine 40 mg tablet 40 mg PO BID PRN for abdominal 12/09/24 pain #180 tabs lorazepam 1 mg tablet 1 mg PO TID PRN anxiety 30 days 12/10/24 #90 tabs Ventolin HFA 90 mcg/actuation 2 puff inhalation Q6H PRN 01/15/25 aerosol inhaler (albuterol sulfate) shortness of breath or wheezing #18 grams cholecalciferol (vitamin D3) 50 50 mcg PO DAILY 90 days #90 caps 01/15/25 mcg (2,000 unit) capsule fluticasone 250 mcg-salmeterol 50 1 inh inhalation BID 30 days #60 ea 01/15/25 mcg/dose blistr powdr for inhalation (Advair Diskus) Allergies Allergy/AdvReac Type Severity Reaction Status Date / Time shellfish derived Allergy Unknown ANAPHYLAXIS Verified 01/22/25 08:56 [SHELLFISH DERIVED] Review of Systems 2 Constitutional: Constitutional: Reports no additional constitutional complaints, Denies chills, Denies fever(s) and Denies night sweats Eyes: Eyes: Reports no additional eye complaints, Denies blurry vision, Denies change in vision, Denies diplopia, Denies eye discharge, Denies loss of vision and Denies eye pain ENT: Denies dizziness Cardiovascular: Cardiovascular: Reports no additional cardiovascular complaints, Reports chest pain (radiating from left shoulder), Denies lightheadedness, Denies Loss of Consciousness and Denies dyspnea Respiratory: Respiratory: Reports no additional respiratory complaints and Denies dyspnea Gastrointestinal: Gastrointestinal: Reports no additional gastrointestinal complaints, Denies abdominal pain, Denies melena, Denies hematochezia, Denies change in bowel habits and Denies change in stool character Genitourinary: Genitourinary: Denies hematuria, Denies urinary frequency, Denies dysuria, Denies urinary incontinence, Denies urinary hesitancy and Denies urinary urgency Musculoskeletal: Musculoskeletal: Reports no additional musculoskeletal complaints, Denies numbness and Denies tingling Comments: left shoulder pain intermittent left upper extremity weakness Neurologic: Denies dizziness, Denies loss of vision, Denies numbness and Denies tingling Psychiatric: Psychiatric: Reports no additional psychiatric complaints Endocrine: Endocrine: Reports no additional endocrine complaints Hematologic/Lymphatic: Hematologic/Lymphatic: Reports no additional hematologic/lymphatic complaints Allergic/Immunologic: Allergic/Immunologic: Reports no additional allergic/immunologic complaints [facility] Past Medical History Attestation statement: The following information was validated with the patient. Source: old records reviewed and nursing notes reviewed Medical History Insomnia Migraines Gastroesophageal reflux disease Essential hypertension Anxiety Allergic rhinitis Asthma Obesity (BMI 30-39.9) Smoker Cough variant asthma Vitamin D deficiency Surgical History No pertinent past surgical history Family History Family History Father Hypertension Diabetes Mother Diabetes Hypertension Anemia Arthritis Hyperthyroidism Son Autism Chronic mental illness Maternal Aunt Cancer Social History Social History Household Members: Spouse and Children Housing: House Alcohol intake: current Alcohol intake frequency: holidays/special occasions only Alcohol type: other Patient Tobacco Use Status: Current someday Tobacco user Tobacco use type: Cigarette Cigarettes Per Day: 1 Smoked in Last 30 Days: Yes e-Cigarette/Vaping Use: Never Used Second Hand Smoke Exposure: Yes Use of substances other than those prescribed or required for medical reasons: No Advance Directives: No Advance Directives Information Provided: Yes service: No Current occupational status: employed 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 Current occupational exposures/hazards: No Sexual orientation: Straight/Heterosexual Gender identity: Female Cognitive needs: No Hearing needs: No Vision needs: No Physical Exam 2 Vital Signs: Vital Signs: Last Vital Signs Temp 98.3 F 01/22/25 08:49 Pulse 63 01/22/25 09:21 Resp 16 01/22/25 09:21 BP 147/99 H 01/22/25 09:21 Pulse Ox 99 01/22/25 09:21 O2 Del Method Room Air 01/22/25 09:21 BMI result Body Mass Index 38.1 Const: General: cooperative, no acute distress, alert and awake Nutritional Appearance: well nourished Orientation/consciousness: patient oriented x3 HEENT: Head: Yes normal to inspection and Yes atraumatic Ears: hearing grossly normal bilaterally and external ears normal General nose exam: Normal external nose present, no nasal discharge noted and no epistaxis Face and sinus: Yes normal facial exam, No abrasion and No laceration Mouth: Normal oral and palatal mucosa present, no drooling and no muffled voice Eyes: General: appearance normal, both eyes and all related structures P eriorbital: periorbital findings normal Eyelids: Yes eyelids normal C onjunctivae: conjunctivae normal Pupils: Equal, round and reactive pupils present EOM: EOMs intact bilaterally Neck: Neck: Yes normal visual inspection, Yes full ROM and Yes no lymphadenopathy Resp: Effort & Inspection: normal respiratory effort and able to speak in complete sentences Neuro: General: patient oriented x3, moves all extremities and CN's II-XI intact bilaterally Cranial nerves: Yes Equal, round and reactive pupils present Cognition (Neuro): normal cognition Extrem: General: Yes normal to inspection, Yes full ROM and Yes capillary refill normal Psych: Appearance: grossly normal Mental Status: mental status grossly normal Affect: normal affect Attitude: cooperative Thought process: N ormal thought process present Thought content: Normal thought content present Insight: Good insight present (Psych) Medical Decision Making Medical Decision Making MDM Narrative: Patient is a 44 year old assigned female at with a history of costochondritis, anxiety, HTN, and cervicalgia presenting to the emergency department today with left sided shoulder pain that radiates into the chest.. Patient's physical exam was unremarkable. Patient's blood work was unremarkable. Patient's EKG was unremarkable. Patient's clinical presentation is most consistent with left rotator cuff dysfunction / pain. I explained my physical exam findings as well as all test results to the patient. I answered all questions asked by the patient. I stressed the importance of the patient taking her medication as directed (either prescribed or as the over the counter packaging recommends). I stressed the importance of the patient following up with her primary care provider and an orthopedic provider. I stressed the importance of the patient returning to the emergency department immediately if her symptoms were to worsen or if she were to develop any dizziness, shortness of breath, difficulty breathing, chest pain, blurry vision, loss of vision, nausea, vomiting, abdominal pain, fever, chills, back pain, or any other complaints. Patient verbalized agreement and understanding with this treatment plan and discharge. Differential Diagnosis Differential Diagnoses: The differential diagnosis associated with the presentation includes NSTEMI STEMI Costochondritis Left rotator cuff injury Left rotator cuff pain Admission/Observation Consideration of admission/observation: Escalation of care including admission/observation considered Patient would have been admitted to the hospital had her work up had any findings where hospital admission was appropriate and her clinical presentation warranted hospital admission. Lab Data [facility] Lab Attestation statement: I reviewed the patient's lab results. My interpretation of these results are in the [facility] Rationale portion of this note. 01/22/25 09:04 01/22/25 09:04 Labs: Lab Results 01/22/25 Range/Units 09:04 WBC 8.0 (4.8-10.8) X10*3/uL RBC 4.37 (4.20-5.50) X10*6/uL Hgb 13.4 (12.0-16.0) g/dl Hct 39.0 (37.0-47.0) % MCV 89.2 (80.0-98.0) fL MCH 30.7 (27.0-33.0) pg MCHC 34.4 (31.0-35.0) g/dl RDW 13.5 (11.0-16.0) % Plt Count 282 (160-400) X10*3/uL MPV 9.3 L (9.4-12.3) fL Immature Gran % (Auto) 0.4 (0.0-0.4) % Neut % (Auto) 55.6 (45-73) % Lymph % (Auto) 32.7 (20-40) % [place] % (Auto) 7.5 (2-11) % Eos % (Auto) 3.4 (0-4) % Baso % (Auto) 0.4 (0-2) % Lymph # (Auto) 2.6 (1.2-4.9) X10*3/uL [place] # (Auto) 0.6 (0.1-1.2) X10*3/uL Eos # (Auto) 0.3 (0.0-0.4) X10*3/uL Baso # (Auto) 0.0 (0.0-0.2) X10*3/uL Abs Immat Gran (auto) 0.03 (0.00-0.03) X10*3/uL Absolute Neuts (auto) 4.4 (2.0-8.3) x10*3/uL Absolute Nucleated RBC 0.000 (0.0-0.012) X10*3/uL Nucleated RBC % (auto) 0.0 (0.0-0.2) /100WBC Sodium 141 (135-145) mmol/L Potassium 3.6 (3.3-5.1) mmol/L Chloride 105 (96-108) mmol/L Carbon Dioxide 28 (22-29) mmol/L Anion Gap 12 (12-20) BUN 13 (9-16) mg/dL Creatinine 0.89 (0.5-1.4) mg/dL Estim Creat Clear Calc 89.7 Estimated GFR > 60 Random Glucose 92 (60-115) mg/dL Calcium 9.4 D (8.4-10.2) mg/dL Total Bilirubin 0.5 (0.0-1.0) mg/dL AST 26 (5-31) U/L ALT 29 (0-31) U/L Alkaline Phosphatase 73 (39-117) U/L Troponin I High Sens < 2.7 (<3.5-17.0) ng/L Total Protein 7.5 (6.5-8.0) g/dL Albumin 4.0 (3.5-5.0) g/dL Independent Interpretation I performed an independent interpretation of an: EKG Interpretation: I independently interpreted this EKG and am in agreement with the below findings: Vent. Rate: 76 BPM Atrial Rate: 76 BPM P-R Int: 142 ms QRS Dur: 82 ms QT Int: 352 ms P-R-T Axes: 31 3 0 degrees QTcB Int: 396 ms Normal sinus rhythm Nonspecific T wave abnormality When compared with ECG of 23-Mar-2019 09:54, Nonspecific T wave abnormality now evident in Lateral leads DD/ [id number] Discharge Plan Discharge Clinical Impression: Acute shoulder pain Patient Disposition: Home, Self-Care Instructions: Shoulder Pain (ED), Rotator Cuff Injury Exercises (DC) Additional Instructions: Follow up with your primary care provider and the orthopedic team. Return to the emergency department immediately if your symptoms worsen or if you develop any numbness, tingling, dizziness, shortness of breath, difficulty breathing, chest pain, blurry vision, loss of vision, nausea, vomiting, abdominal pain, fever, chills, back pain, or any other complaints. Please see the information below about our Patient Portal. If you are not yet enrolled in the [facility] Patient Portal, you will receive an enrollment email invitation following your visit to any [facility] setting. You may also self-enroll in the Patient Portal by visiting our website: [email or web address] The following information is required to access the Patient Portal: - Your [facility] Medical Record Number - Your personal home email address (must match what is in your electronic medical record, Registration staff can assist with this) - Name - Date of Capabilities of the Patient Portal: - Message some providers - View upcoming appointments - Access your health summary, medical history, and visit history - View current conditions and allergies - View procedure and lab results - View your medications, including guidelines, side effects, and precautions - Complete pre-appointment questionnaires requested by your provider - Ready summary reports of your office visits and procedures To access the Patient Portal Mobile Lenny, follow these directions: - Search [employer] in the Lenny Store or ServiceMesh Store - Download the Lenny - Search for [facility] - Enter your login/password Prescriptions: No Action lidocaine 5 % adhesive patch,medicated 1 patch topical DAILY PRN (Reason: pain) 30 Days Qty: 30 3RF albuterol sulfate 2.5 mg /3 mL (0.083 %) solution for nebulization 2.5 mg continuous nebulization Q6-8H PRN (Reason: bronchospasm) Qty: 300 5RF loratadine 10 mg tablet 10 mg PO DAILY PRN (Reason: allergy symptoms) 90 Days Qty: 90 3RF montelukast 10 mg tablet 10 mg PO DAILY 90 Days Qty: 90 3RF hydrochlorothiazide 12.5 mg capsule 12.5 mg PO QAM 90 Days Qty: 90 1RF clonidine HCl 0.2 mg tablet 0.2 mg PO BEDTIME Qty: 90 1RF trazodone 50 mg tablet 50 mg PO BEDTIME PRN (Reason: for insomnia) Qty: 90 1RF famotidine 40 mg tablet 40 mg PO BID PRN (Reason: for abdominal pain) Qty: 180 0RF lorazepam 1 mg tablet 1 mg PO TID PRN (Reason: anxiety) 30 Days Qty: 90 0RF ibuprofen 600 mg tablet 600 mg PO Q6H PRN (Reason: fever or pain) Qty: 30 0RF fluticasone propionate [Flonase Allergy Relief] 50 mcg/actuation spray,suspension 1 spray intranasal DAILY Qty: 150 3RF Rx Instructions: administer into each nostril epinephrine 0.3 mg/0.3 mL auto-injector 0.3 mg IM Q4H PRN (Reason: anaphylaxis) Qty: 2 0RF magnesium oxide [MagOx] 400 mg (241.3 mg magnesium) tablet 400 mg PO BEDTIME 90 Days Qty: 90 1RF fluticasone propion-salmeterol [Advair Diskus] 250-50 mcg/dose blister with device 1 inh inhalation BID 30 Days Qty: 60 3RF albuterol sulfate [Ventolin HFA] 90 mcg/actuation HFA aerosol inhaler 2 puff inhalation Q6H PRN (Reason: shortness of breath or wheezing) Qty: 18 3RF cholecalciferol (vitamin D3) 50 mcg (2,000 unit) capsule 50 mcg PO DAILY 90 Days Qty: 90 3RF Referrals: [facility] Orthopedic Surgeons [Provider Group] (Call to establish and follow up with the orthopedic team to discuss your left shoulder pain. ) Adam Wharton MD [Primary Care Provider] - Stand Alone Forms: Work/School Release Print Language: Croatian
[2025-01-22 09:21] VITALS: BP 147/99; PULSE 63; RESP 16; O2SAT 99
[2025-01-22 09:26] VITALS: PULSE 73
[2025-01-22 09:28] LABS: Alanine Aminotransferase 29 U/L (0-31); Alkaline Phosphatase 73 U/L (39-117); Anion Gap 12 (12-20); Aspartate Amino Transferase 26 U/L (5-31); Bilirubin Total 0.5 mg/dL (0.0-1.0); Blood Urea Nitrogen 13 mg/dL (9-16); Calcium 9.4 mg/dL (8.4-10.2); Carbon Dioxide 28 mmol/L (22-29); Chloride 105 mmol/L (96-108); Creatinine Clr Calc Pharmacy 89.7; Estimated Glomerular Filt Rate > 60; Glucose Random 92 mg/dL (60-115); Potassium 3.6 mmol/L (3.3-5.1); Sodium 141 mmol/L (135-145); Total Protein 7.5 g/dL (6.5-8.0)
--- NOTE | 2025-01-22 09:28 | PC.NURSE ---
Pt is alert and oriented. Reports since yesterday Left sided cp into left scapula. Denies SOB or dizziness. Reports h/o costochondritis however wanted to ensure no cardiac reason for pain given family history and pain on left side. Pain worsens with movement and positional changes of arm and even holding cell phone for extended time on affected side. Admits to lifting grannddaughter who weights approx 30lbs. NSR on tele. Skin pink warm and dry
[2025-01-22 09:35] LABS: Troponin-I High Sensitivity < 2.7 ng/L (<3.5-17.0)
[2025-01-22 10:19] VITALS: BP 147/99; PULSE 63; RESP 16; TEMP -17.7; TEMP 0; O2SAT 99
== END 2025-01-22 10:20 | disposition home or self-care (01) ==
PROVIDERS: Emergency Provider Emergency Medicine; PCP Internal Medicine
DX: R07.89 Other chest pain (principal); R53.1 Weakness; M25.512 Pain in left shoulder; I10 Essential (primary) hypertension; Z79.899 Other long term (current) drug therapy
CPT/HCPCS: 36415; 80053; 84484; 85025; 93005; 99283; 99285

== ENCOUNTER → 2025-01-22 08:44 | Outpatient (BNV) | payer OTHER, SELFPAY | PROVIDERS: Emergency Provider Emergency Medicine; PCP Internal Medicine; Visit Provider Internal Medicine | DX: R94.31 Abnormal electrocardiogram [ECG] [EKG] (principal); R07.9 Chest pain, unspecified | CPT/HCPCS: 93010 ==

== ENCOUNTER 2025-02-12 15:48 | Outpatient (REF) | payer OTHER, SELFPAY ==
--- NOTE | ~2025-02-12 | US_ITS ---
EXAMINATION: US THYROID HISTORY: R79.89 - Other specified abnormal findings of blood chemistry TECHNIQUE: Real-time grayscale ultrasound imaging was performed and images were reviewed. COMPARISON: There are no prior studies for comparison. FINDINGS: SIZE: The right thyroid lobe measures 3.5 x 1.3 x 1.3 cm. The left thyroid lobe measures 3.5 x 1.0 x 1.4 cm. The isthmus measures 2 mm. FLOW: Flow to the gland is normal. ECHOGENICITY: The echotexture of the gland is homogeneous. NODULES: A 3 mm colloid cyst is noted in the left thyroid lobe. No solid nodules are identified. US/US thyroid IMPRESSION: 3 mm left colloid cyst. Otherwise unremarkable thyroid ultrasound. ACR TI-RADS Guidelines TR1 (0 points): Benign, No follow-up or biopsy required TR2 (2 points): Not Suspicious, No biopsy or follow up indicated TR3 (3 points): Mildly Suspicious, FNA if >= 2.5 cm, Follow if >= 1.5 cm TR4 (4-6 points): Moderately Suspicious, FNA if >= 1.5 cm, Follow if >= 1.0 cm TR5 (>=7 points): Highly Suspicious, FNA if >= 1.0 cm, Follow if >= 0.5 cm Electronically signed by: Sung Hernandez MD 02/13/2025 07:47 AM EDT
--- OUTSIDE RECORDS SUMMARY | 2025-02-12 16:10 | XMS_ITS | Encounter Summary ---
Author Organization [facility] [employer] [facility] Address [address] [place] [address] Care Team Providers Care Anesthesia Resident Name Role Phone Unavailable Primary Care Provider Unavailabl e Encounter Details Date Type Department Care Team (Latest Contact Info) Description 11/04/2021 Abstract [facility] CONVERSIONS Dental, Provider, DDS Social History Tobacco [...]
[2025-02-12 17:14] LABS: Appearance Urine Cloudy; Color Urine Yellow; Glucose Urine UA Negative (Negative); Leukocyte Esterase Urine Large (3+) (Negative); Nitrite Urine Negative (Negative); PH 7.5 (5.0-9.0); Specific Gravity - Urine <= 1.005 (1.005-1.025); UMIC TRIGGER UACC YES; Urine Blood Negative (Negative); Urine Ketones Negative (Negative); Urine Protein Negative (Neg-Trace)
[2025-02-12 17:31] LABS: Bacteria Urine 1+ (None Seen); Hyaline Casts Urine 0-2 /LPF (0-2); RBC Urine 0-2 /HPF (0-2); UACC Culture Trigger YES; WBC Urine 21-50 /HPF (0-5)
== END 2025-02-12 15:49 | disposition home or self-care (01) ==
LOC: HO.US 15:48
PROVIDERS: PCP Internal Medicine; Visit Provider Physician Assistant Medical
DX: E04.1 Nontoxic single thyroid nodule (principal); R79.89 Other specified abnormal findings of blood chemistry
CPT/HCPCS: 76536; 81001; 87086; 87147

== ENCOUNTER → 2025-02-12 15:58 | Outpatient (BNV) | payer OTHER, SELFPAY | PROVIDERS: PCP Internal Medicine; Visit Provider Radiology Diagnostic Radiology | DX: E04.1 Nontoxic single thyroid nodule (principal) | CPT/HCPCS: 76536 ==

== ENCOUNTER 2025-03-19 13:03 | Outpatient (AMB) | payer OTHER, SELFPAY ==
[2025-03-19 13:04] VITALS: BP 142/90; PULSE 83; O2SAT 96; BMI 38.0
--- NOTE | 2025-03-19 13:04 | A.OFFPC_ITS ---
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 Required: No Accompanied by: Self / Same As Patient Allergies shellfish derived (SHELLFISH DERIVED) Allergy (Unknown, Verified 03/19/25 13:30) ANAPHYLAXIS Medication List - Last Reconciled 03/19/25 by Adam Wharton MD albuterol sulfate 2.5 mg (3 mL) continuous nebulization Q6-8H PRN cholecalciferol (vitamin D3) 50 mcg PO DAILY 90 days clonidine HCl 0.2 mg PO BEDTIME epinephrine 0.3 mg (0.3 mL) IM Q4H PRN famotidine 40 mg PO BID PRN fluticasone propion-salmeterol 250-50 mcg/dose (Advair Diskus) 1 inh inhalation BID 30 days fluticasone propionate 50 mcg/actuation (Flonase Allergy Relief) 1 spray intranasal DAILY hydrochlorothiazide 12.5 mg PO QAM 90 days ibuprofen 600 mg PO Q6H PRN lidocaine 5% 1 patch topical DAILY PRN 30 days loratadine 10 mg PO DAILY PRN 90 days lorazepam 1 mg PO TID PRN 30 days magnesium oxide (MagOx) 400 mg PO BEDTIME 90 days montelukast 10 mg PO DAILY 90 days nitrofurantoin monohyd/m-cryst 100 mg 100 mg PO Q12H 5 days trazodone 50 mg PO BEDTIME PRN Ventolin HFA 90 mcg/actuation (albuterol sulfate) 2 puffs inhalation Q6H PRN NS Tobacco use date assessed: 03/19/25 Dental Screening Dental Screen Date: 03/19/25 Did you have a dental visit in the last 12 months?: Yes Did you have a dental problem in the last 6 months where you did not have access to dental care?: No Was dental information given to patient?: Patient has dentist HPI F/U Labs and U/S HPI Details Patient comes in today for her follow-up visit States that she has gained a lot of weight over the past couple of years and has been trying unsuccessfully to lose weight for several months now She requested to have some labs done a couple of months ago for further evaluation of her weight issues and she would like to know how all of her labs done recently came back She was also sent for a thyroid ultrasound for further evaluation of her thyroid nodule and she would also like to know if her ultrasound came back okay States that she feels okay otherwise She denies any headaches or dizziness Denies any chest pains, no increased shortness of breath No nausea/vomiting, no abdominal pain No change in bowel habits noted He has a couple of her Rx refilled, including her lorazepam PFSH Medical History Insomnia Migraines Gastroesophageal reflux disease Essential hypertension Anxiety Allergic rhinitis Asthma Obesity (BMI 30-39.9) Smoker Cough variant asthma Vitamin D deficiency Surgical History No pertinent past surgical history Family History Father Hypertension Diabetes Mother Diabetes Hypertension Anemia Arthritis Hyperthyroidism Son Autism Chronic mental illness Maternal Aunt Cancer Social History Household Members: Spouse and Children Housing: House Alcohol intake: current Alcohol intake frequency: holidays/special occasions only Alcohol type: other Patient Tobacco Use Status: Current someday Tobacco user Tobacco use type: Cigarette Cigarettes Per Day: 1 e-Cigarette/Vaping Use: Never Used Second Hand Smoke Exposure: Yes service: No Current occupational status: employed 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 1. Little interest or pleasure in doing things: several days 2. Feeling down, depressed, or hopeless: several days 3. Trouble falling or staying asleep, or sleeping too much: several days 4. Feeling tired or having little energy: several days 5. Poor appetite or overeating: several days 6. Feeling bad about yourself - or that you are a failure or have let yourself or your family down: not at all 7. Trouble concentrating on things, such as reading the newspaper or watching television: not at all 8. Moving or speaking so slowly that other people could have noticed. Or the opposite - being so fidgety or restless that you have been moving around a lot more than usual: not at all 9. Thoughts that you would be better off or of hurting yourself in some way: not at all Total score: 5 Depression Screening Interpretation: Positive Depression Screening Follow-up: Existing condition and In treatment Depression Screening Done: Yes 52162 - PHQ-9 Billing: Yes Source: Developed by Drs. Sung Whipple, Angelica Sutton, Tong Sawyer and colleagues, with an educational airam from [employer]. Thrive Questionnaire Date Thrive assessed: 03/19/25 I am a: Patient What is your living situation today?: I have a steady place to live Within the past 12 months, did the food you bought not last and you didn't have the money to get more?: I choose not to answer this question Within the past 12 months, did you worry whether your food would run out before you got money to buy more?: I choose not to answer this question Do you have trouble paying for medicines?: I choose not to answer this question Do you have trouble getting transportation to medical appointments?: I choose not to answer this question Do you have trouble paying your heating and electricity bill?: I choose not to answer this question Do you have trouble taking care of your child, family member or friend?: I choose not to answer this question Do you have trouble with day-to-day activities such as bathing, preparing meals, shopping, managing finances, etc.?: I choose not to answer this question Are you currently unemployed and looking for a job?: I choose not to answer this question Are you interested in more education?: I choose not to answer this question Please select the resources that you would like help with: None Currently or been in a relationship where the following occur: I choose not to answer THRIVE Score: 0 AUDIT C Alcohol Use Questionnaire (AUDIT-C) 1. How often do you have a drink containing alcohol?: Never 3. How often do you have six or more drinks on one occasion?: Never Total Score: 0 Score Reviewed/Action Taken: Yes SHAYAN-7 AMB Questionnaire SHAYAN-7 Date SHAYAN - 7 assessed: 03/19/25 Feeling nervous, anxious, or on edge: 0 = Not at all Not being able to stop or control worryin = Not at all Worrying too much about different things: 0 = Not at all Trouble relaxin = Not at all Being so restless that it is hard to sit still: 0 = Not at all Becoming easily annoyed or irritable: 0 = Not at all Feeling afraid as if something awful might happen: 0 = Not at all Total SHAYAN-7 score (0-4 normal; 5-9 mild; 10-14 moderate; 15-21 severe): 0 Source: Developed by Drs. Sung Whipple, Angelica Sutton, Tong Sawyer and colleagues, with an educational airam from [employer]. Review of Systems Const Denies chills, Reports fatigue, Denies fever(s) and Denies headache(s) ENT Denies dysphagia, Denies dizziness, Denies otalgia, Denies headache(s), Denies neck pain, Denies odynophagia and Denies sore throat Card Denies chest pain, Denies palpitations and Reports dyspnea on exertion (mild) Resp Denies chest congestion (but chest feels tight at times), Denies cough, Reports dyspnea on exertion (mild) and Denies wheezing GI Denies abdominal pain, Denies constipation, Denies dysphagia, Denies heartburn, Denies diarrhea, Denies nausea, Denies odynophagia and Denies vomiting Denies difficulty voiding, Denies nocturia, Denies dysuria and Denies urinary urgency Musc Denies back pain, Reports myalgias and Denies neck pain Skin/Breast Reports alopecia (thinning) and Denies rash Neuro Denies dizziness and Denies headache(s) Endo Reports fatigue and Denies palpitations Aller/Immun Denies wheezing Physical exam (Primary Care) Vital Signs: Last Vital Signs Pulse 83 03/19/25 13:04 BP 142/90 H 03/19/25 13:04 Pulse Ox 96 03/19/25 13:04 Oxygen Delivery Method Room Air 03/19/25 13:04 BMI result Body Mass Index 38.0 Tobacco/Smoking Status: Tobacco use Status Tobacco use date assessed 03/19/25 03/19/25 13:08 Patient Tobacco Use Status Current someday Tobacco 03/19/25 13:08 Tobacco use type Cigarette 03/19/25 13:08 e-Cigarette/Vaping Use Never Used 03/19/25 13:08 PHQ-9: PHQ-9 Score PHQ-9: Total score 5 03/19/25 13:33 Depression Screening Interpretation: Positive Depression Screening Follow-up: Existing condition and In treatment Thrive Assessment: Date of Thrive Assessment Date Thrive assessed 03/19/25 03/19/25 13:08 Currently or been in a relationship where the following occur: I choose not to answer Const General: no acute distress and alert HENMT Ears: TM's normal bilaterally and EAC's normal Throat: Yes posterior oropharynx normal and Yes tonsils normal (no TP congestion) Neck Neck: Yes supple and No lymphadenopathy Thyroid: Thyroid normal, no masses and no nodules Resp Auscultation: clear to auscultation bilaterally, no crackles, no rales and no wheezes Cardio Rate: regular rate Rhythm: regular rhythm Heart sounds: no murmurs GI Palpation (GI): Soft to palpation and nontender Auscultation: normal bowel sounds General: Yes no CVA tenderness Back/Spine/Pelvis Back: no CVA tenderness Thoracic/Lumbar Spine: No lumbar spinal tenderness Skin Rashes: no rashes Extrem General: Yes no clubbing, cyanosis or edema Results Reviewed Results Reviewed: Laboratory Tests 01/08/25 01/15/25 01/22/25 07:30 15:09 09:04 WBC 8.0 Hgb 13.4 Hct 39.0 Plt Count 282 Sodium 141 Potassium 3.6 Creatinine 0.89 Estimated GFR > 60 Random Glucose 92 Calcium 9.4 D AST 26 ALT 29 C-Reactive Protein 1.49 H TSH 4.57 H Free T4 1.00 Total T3 113 Ur Specific Mercer Urine Protein Urine Glucose (UA) Urine Blood Urine Nitrite Ur Leukocyte Esterase 02/12/25 15:53 WBC Hgb Hct Plt Count Sodium Potassium Creatinine Estimated GFR Random Glucose Calcium AST ALT C-Reactive Protein TSH Free T4 Total T3 Ur Specific Mercer <= 1.005 Urine Protein Negative Urine Glucose (UA) Negative Urine Blood Negative Urine Nitrite Negative Ur Leukocyte Esterase Large (3+) H Coding Level of Care Code Est Pt Level 4 (53345) Diagnoses Elevated TSH R79.89 Essential hypertension I10 Moderate persistent asthma without complication J45.40 Asthma severity: moderate Asthma persistence: persistent Asthma complication type: uncomplicated Allergic rhinitis, unspecified seasonality, unspecified trigger J30.9 Allergic rhinitis trigger: unspecified Allergic rhinitis seasonality: unspecified Migraine without status migrainosus, not intractable, unspecified migraine type G43.909 Migraine type: unspecified Status migrainosus presence: without status migrainosus Intractability: not intractable Vitamin D deficiency E55.9 Gastroesophageal reflux disease without esophagitis K21.9 Esophagitis presence: without esophagitis Insomnia, unspecified type G47.00 Insomnia type: unspecified Anxiety F41.9 Smoker F17.200 Obesity (BMI 30-39.9) E66.9 Additional Codes PHQ-9 - 31556 - PHQ-9 Billing: Yes ([id number]) Assessment & Plan Assessment & Plan (1) Elevated TSH: Code(s): R79.89 - Other specified abnormal findings of blood chemistry Category: Medical Plan: Results of her labs done a couple of months ago reviewed and discussed with patient - patient is advised that her labs were normal Her serum TSH was slightly elevated but her free T4 and T3 levels were all normal and patient is clinically euthyroid Her thyroid ultrasound also came back showing (+) 3 mm colloid cyst is noted in the left thyroid lobe. No solid nodules are identified (2) Essential hypertension: Code(s): I10 - Essential (primary) hypertension Category: Medical Plan: Reinforced low sodium diet - goal is systolic BP of 120 mm or less Continue HCTZ 12.5 mg Q AM - Rx refilled (3) Asthma: Code(s): J45.909 - Unspecified asthma, uncomplicated Category: Medical Qualifiers: Asthma severity: moderate Asthma persistence: persistent Asthma complication type: uncomplicated Qualified Code(s): J45.40 - Moderate persistent asthma, uncomplicated Plan: Better controlled lately Continue Advair Diskus 250-50 mcg 1 inhalation BID; continue Montelukast 10 mg QD and Ventolin HFA 2 inhalations Q 6 hours PRN She also has Albuterol nebulizer solution to use with her updraft when needed (4) Allergic rhinitis: Code(s): J30.9 - Allergic rhinitis, unspecified Category: Medical Qualifiers: Allergic rhinitis trigger: unspecified Allergic rhinitis seasonality: unspecified Qualified Code(s): J30.9 - Allergic rhinitis, unspecified Plan: Continue Loratadine 10 mg QD PRN and Fluticasone 50 mcg nasal spray QD PRN (5) Migraines: Code(s): G43.909 - Migraine, unspecified, not intractable, without status migrainosus Category: Medical Qualifiers: Migraine type: unspecified Status migrainosus presence: without status migrainosus Intractability: not intractable Qualified Code(s): G43.909 - M igraine, unspecified, not intractable, without status migrainosus Plan: Reinforced avoidance of all potential migraine triggers Continue Ibuprofen 600 mg Q 6 hours PRN (6) Vitamin D deficiency: Code(s): E55.9 - Vitamin D deficiency, unspecified Category: Medical Plan: Continue Vitamin D3 2000 units QD (7) Gastroesophageal reflux disease: Code(s): K21.9 - Gastro-esophageal reflux disease without esophagitis Category: Medical Qualifiers: Esophagitis presence: without esophagitis Qualified Code(s): K21.9 - Gastro-esophageal reflux disease without esophagitis Plan: Dietary restrictions reinforced Continue Famotidine 40 mg BID PRN (8) Insomnia: Code(s): G47.00 - Insomnia, unspecified Category: Medical Qualifiers: Insomnia type: unspecified Qualified Code(s): G47.00 - Insomnia, unspecified Plan: Sleep hygiene reinforced Have advised patient that her issues with sleeping appear to be at least partially due to her anxiety Continue Trazodone 50 mg Q HS and Clonidine 0.2 mg Q HS PRN Have also advised her to try taking some oral Magnesium tablets 400 mg Q HS (9) Anxiety: Code(s): F41.9 - Anxiety disorder, unspecified Category: Medical Plan: Continue Lorazepam 1 mg TID PRN (10) Smoker: Code(s): F17.200 - Nicotine dependence, unspecified, uncomplicated Category: Social Hx Plan: Patient is counseled again on complete smoking cessation (11) Obesity (BMI 30-39.9): Code(s): E66.9 - Obesity, unspecified Category: Medical Plan: Reinforced diet/exercise as tolerated/lose weight Per request, we will refer to weight management at [facility], patient does not want to pursue bariatric surgery, which she was advised is the only thing that weight management here at [facility] provides at this time Plan Follow up as scheduled late next month Orders: Referrals Medical Weight Management Referral E66.9 - Obesity, unspecified Medications: Refilled hydrochlorothiazide 12.5 mg PO QAM 90 caps 1RF 90 days lorazepam 1 mg PO TID PRN 90 tabs 0RF anxiety 30 days
== END 2025-03-19 13:45 | disposition home or self-care (01) ==
LOC: HO.HMCH 13:04
PROVIDERS: PCP Internal Medicine; Visit Provider Internal Medicine
DX: I10 Essential (primary) hypertension (principal); R79.89 Other specified abnormal findings of blood chemistry; E66.9 Obesity, unspecified; Z68.38 Body mass index [BMI] 38.0-38.9, adult; E55.9 Vitamin D deficiency, unspecified; J45.40 Moderate persistent asthma, uncomplicated; J30.9 Allergic rhinitis, unspecified; G43.909 Migraine, unspecified, not intractable, without status migrainosus; K21.9 Gastro-esophageal reflux disease without esophagitis; G47.00 Insomnia, unspecified; F41.9 Anxiety disorder, unspecified; F17.200 Nicotine dependence, unspecified, uncomplicated

== ENCOUNTER → 2025-03-19 13:03 | Outpatient (BNVA) | payer OTHER, SELFPAY | PROVIDERS: PCP Internal Medicine; Visit Provider Internal Medicine | DX: I10 Essential (primary) hypertension (principal); J45.40 Moderate persistent asthma, uncomplicated; R79.89 Other specified abnormal findings of blood chemistry; J30.9 Allergic rhinitis, unspecified; G43.909 Migraine, unspecified, not intractable, without status migrainosus; E55.9 Vitamin D deficiency, unspecified; K21.9 Gastro-esophageal reflux disease without esophagitis; G47.00 Insomnia, unspecified; F41.9 Anxiety disorder, unspecified; F17.210 Nicotine dependence, cigarettes, uncomplicated; E66.9 Obesity, unspecified; Z68.38 Body mass index [BMI] 38.0-38.9, adult | CPT/HCPCS: 96127; 99212 ==

== ENCOUNTER 2025-03-27 13:28 | Outpatient (REF) | payer OTHER, SELFPAY ==
--- OUTSIDE RECORDS SUMMARY | 2025-03-27 13:31 | XMS_ITS | Encounter Summary ---
Author Organization [facility] Address [address] [place] [address] Care Team Providers Care Technical Project Manager Name Role Phone Unavailable Primary Care Provider [...]
== END 2025-03-27 13:29 | disposition home or self-care (01) ==
LOC: HO.MAMMO 13:28
PROVIDERS: PCP Internal Medicine; Visit Provider Internal Medicine
DX: Z12.31 Encounter for screening mammogram for malignant neoplasm of breast (principal)
CPT/HCPCS: 77063; 77067

== ENCOUNTER → 2025-03-27 13:30 | Outpatient (BNV) | payer OTHER, SELFPAY | PROVIDERS: PCP Internal Medicine; Visit Provider Internal Medicine | DX: Z12.31 Encounter for screening mammogram for malignant neoplasm of breast (principal) | CPT/HCPCS: 77063; 77067 ==

== ENCOUNTER 2025-04-11 10:26 | Outpatient (REF) | payer OTHER, SELFPAY ==
--- OUTSIDE RECORDS SUMMARY | 2025-04-12 10:28 | XMS_ITS | Encounter Summary ---
Author Organization [facility] Address [address] [place] [address] Care Team Providers Care Manager Reliability Name Role Phone Unavailable Primary Care Provider [...]
--- OUTSIDE RECORDS SUMMARY | 2025-04-12 10:28 | XMS_ITS | Clinical Summary ---
Author Organization [address] [facility] Address [address] [place] [address] Phone Care Team Providers Care Interactive Media Marketing Strategist Name Role Phone Adam Wharton MD Primary Care Provider Social History Tobacco Use Types Packs/Day Years Used Date Smoking Tobacco: Never Assessed Comments Unknown Sex and Gender Information Value Date Recorded Sex Assigned at Not on file Legal Sex Female 2:35 PM EDT Gender Identity Not on file Sexual Orientation Not on file Plan of Treatment Upcoming Encounters Date Type Department Care Team ([facility] Contact Info) Description 11/06/2025 2:30 PM EST Office Visit Bariatric Surgery [facility] [address] [id number] Roly Stallworth MD [address] [phone] Health Maintenance Due Date Last Done Comments Breast Cancer Screening 1980 DTaP,Tdap,and Td Vaccines (1 - Tdap) 1999 Hepatitis B Vaccines (1 of 3 - 19+ 3-dose series) 1999 Cervical Cancer Screening: P ap Smear 2001 COVID-19 Vaccine (2023-2 5 season) 2024 Depression Screening 09/18/2024 HIV Screening 03/27/2025 Hepatitis C Screening 03/27/2025 Social Influencers of Health Screening 03/27/2025 Influenza Vaccine (#1) 2025 HIB Vaccines Aged Out No longer eligi [...] on patient's age to complete this topic MMR Vaccines Aged Out No longer eligi ble based on patient's age to complete this topic Meningococcal ACWY Vaccine Aged Out N o longer eligible based on patient's age to complete this topic Meningococcal B Vaccine Aged Out No l onger eligible based on patient's age to complete this topic Pneumococcal Vaccine: Pediat rics (0 to 5 Years) and At-Risk Patients (6 to 49 Years) Aged Out No longer eligible b ased on patient's age to complete this topic RSV Immunization Patients Un cathie 20 months Aged Out No longer eligible b ased on patient's age to complete this topic Varicella Vaccines Aged Out No longer eligible based on patient's age to complete this topic Insurance [facility] Care Teams Interactive Media Marketing Strategist Relationship Specialty Start Date End Date Adam Wharton MD [address] [place] [address] Dr [address] [place], [place] PCP - General Internal Medicine 03/26/25
== END 2025-04-11 10:27 | disposition home or self-care (01) ==
LOC: HO.HOSX 10:26
PROVIDERS: Visit Provider Physician Assistant
DX: Z13.89 Encounter for screening for other disorder (principal)

== ENCOUNTER 2025-04-12 11:19 | Outpatient (AMB) | payer OTHER, SELFPAY ==
--- NOTE | 2025-04-12 11:21 | MHC.OFFWIV ---
Intake Vital Signs 04/12/25 11:22 Height 5 ft 3 in Weight 214 lb BMI 37.9 BP 138/90 H Blood Pressure Location Lt brachial Position Sitting Pulse 86 Pulse Source Pulse Oximeter Temp 98.0 F Temp Source Oral Pulse Oximetry (%) 97 Oxygen Delivery Method Room Air Intake Visit Reasons: EP-lt breast cyst/pain Patient Tobacco Use Status: Current someday Tobacco user Allergies shellfish derived (SHELLFISH DERIVED) Allergy (Unknown, Verified 04/12/25 11:42) ANAPHYLAXIS Medication List - Last Reconciled 04/12/25 by Tianna Fernandez, [facility] albuterol sulfate 2.5 mg (3 mL) continuous nebulization Q6-8H PRN cholecalciferol (vitamin D3) 50 mcg PO DAILY 90 days clonidine HCl 0.2 mg PO BEDTIME epinephrine 0.3 mg (0.3 mL) IM Q4H PRN famotidine 40 mg PO BID PRN fluticasone propion-salmeterol 250-50 mcg/dose (Advair Diskus) 1 inh inhalation BID 30 days fluticasone propionate 50 mcg/actuation (Flonase Allergy Relief) 1 spray intranasal DAILY hydrochlorothiazide 12.5 mg PO QAM 90 days ibuprofen 600 mg PO Q6H PRN lidocaine 5% 1 patch topical DAILY PRN 30 days loratadine 10 mg PO DAILY PRN 90 days lorazepam 1 mg PO TID PRN 30 days magnesium oxide (MagOx) 400 mg PO BEDTIME 90 days montelukast 10 mg PO DAILY 90 days trazodone 50 mg PO BEDTIME PRN Ventolin HFA 90 mcg/actuation (albuterol sulfate) 2 puffs inhalation Q6H PRN NS Do you need a note to return to daycare/school/sports/work: No HPI HPI Comments History of Present Illness Details History of Present Illness - The patient is a 44-year-old female presenting with a breast cyst, L. - Started approximately four days ago. - Previous similar lesion about 1.5 mo ago, self resolved after 7-8 days with clear fluid leakage. - She had a mammo after this time, results as below. - Current area larger and more painful than prior episode. - Pain increases with movement and bra friction. - Has been applying topical neosporin and lidocaine. - Denies fever or systemic symptoms. - Tdap 2008 Review of Systems - Integumentary: Reports recurrent cyst under breast with pain and clear leakage. - Constitutional: Denies fever or systemic symptoms. Physical Exam Left breast, see image of abcess below. There area is left inner quadrant, TTP, no drainage, mild induration. Diagnostic results - Recent mammogram: Normal - Recent mammogram: Normal See below Discussion Notes We agreed on a treatment plan of oral antibiotics, specifically Cephalexin, to address the current infection and inflammation. I emphasized the importance of avoiding friction and shear near the affected area, recommending the use of loose-fitting cotton clothing. I instructed her to avoid using powders under the breast and to refrain from attempting to squeeze or puncture the area. I suggested warm, moist compresses to facilitate natural drainage. I highlighted the need for reevaluation to assess the response to treatment and determine if further intervention, such as I&D or surgical consultation. Additionally, I informed her of the need for a tetanus booster due to her last shot being over 10 years ago. We discussed the need to monitor the area closely and return for follow-up mid-next week. Consent for taking a photograph of the area for documentation was obtained, and I provided reassurance regarding her concerns. Assessment and Plan - Cephalexin for 7 days - Use loose cotton T-shirts - Avoid powders/squeezing - Warm compresses - Reevaluation planned 2. Possible Hidradenitis Suppurativa - Possible dermatology evaluation - Monitor for recurrence Patient Instructions - Take prescribed antibiotics (Cephalexin) once in the morning and once at night for 7 days. - Wear loose cotton T-shirts to lessen friction on the cyst. - Do not apply any powders under the breast. - Use warm, moist compresses on the cyst area as needed. - Do not squeeze or poke the cyst. - Return for follow-up mid-next week or sooner if symptoms worsen. Consent Patient was informed and verbally consented to the use of an ambient scribe for clinic note documentation during this visit. [facility] Medical History Insomnia Migraines Gastroesophageal reflux disease Essential hypertension Anxiety Allergic rhinitis Asthma Obesity (BMI 30-39.9) Smoker Cough variant asthma Vitamin D deficiency Surgical History No pertinent past surgical history Family History Father Hypertension Diabetes Mother Diabetes Hypertension Anemia Arthritis Hyperthyroidism Son Autism Chronic mental illness Maternal Aunt Cancer Social History Household Members: Spouse and Children Housing: House Alcohol intake: current Alcohol intake frequency: holidays/special occasions only Alcohol type: other Patient Tobacco Use Status: Current someday Tobacco user Tobacco use type: Cigarette Cigarettes Per Day: 1 e-Cigarette/Vaping Use: Never Used Second Hand Smoke Exposure: Yes service: No Current occupational status: employed 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 Current occupational exposures/hazards: No Sexual orientation: Straight/Heterosexual Gender identity: Female Cognitive needs: No Hearing needs: No Vision needs: No Female Reproductive History Menstrual Age of Menarche: 8 Physical Exam Vital Signs: Last Vital Signs Temp 98.0 F 04/12/25 11:22 Pulse 86 04/12/25 11:22 BP 138/90 H 04/12/25 11:22 Pulse Ox 97 04/12/25 11:22 Oxygen Delivery Method Room Air 04/12/25 11:22 BMI result Body Mass Index 37.9 Immunizations Boostrix Tdap 2.5 Lf unit-8 mcg-5 Lf/0.5 mL intramuscular syringe Performing Provider: JTE Eddy Performing Location: [facility] Administered by: Miguel José CMA on 04/12/25 11:57 Dose Route Admin Location Dispensed Lot Number Expiration Date [facility] Edge Glue Machine Tender 0.5 mL IM Left Deltoid 0.5 mL [id number] 05/17/27 [id number] [employer] Total Dispensed Waste 0.5 mL 0 % VIS Given Date VIS Provided VIS Publication Date 04/12/25 Single Vaccine 21 Eligibility Eligibility Date Funding Source Not [facility] Eligible 04/12/25 Private Results Reviewed Results Reviewed: [facility] [address] [place] [address] Mammography Report Signed Patient: Nargis Alston V MR#: [id number] : 1980 Acct:[id number] Age/Sex: 44 / F ADM Date: 03/27/25 Loc: HO.MAMMO Attending Dr: Adam Wharton MD Ordering Physician: Adam Wharton MD Results: 1Negative Date of Service: 03/27/25 Follow Up: 1 Year From Original Mammogram Procedure(s): MM tomosynthesis screening BI Accession Number(s): [id number] cc: Adam Wharton MD~ EXAMINATION: MM SCREENING DIGITAL BREAST TOMOSYNTHESIS, BILATERAL CLINICAL INFORMATION: Screening. Asymptomatic. COMPARISON: Mammography: Comparison is made with available priors TECHNIQUE: Digital breast mammography with tomosynthesis is performed in both the craniocaudal and mediolateral oblique views along with computer-aided detection (CAD). FINDINGS: There are scattered areas of fibroglandular density (ACR BI-RADS breast composition Category b). There are no significant masses, abnormal calcifications, or other abnormalities. MM/MM tomosynthesis screening BI IMPRESSION: No mammographic evidence of malignancy. ASSESSMENT: BI-RADS BI-RADS 1 - Negative RECOMMENDATION: Routine annual mammography screening. 1 year F/U This examination should not preclude the clinical evaluation of a suspicious palpable abnormality. This patient's information was entered into a reminder system with a target due date for their next mammogram. Electronically signed by: Rosario Quevedo DO 04/08/2025 05:30 PM EDT Dictated By: Rosario Quevedo DO Signed By: <Electronically signed by Rosario Quevedo DO in OV> 04/08/25 7434 Assessment & Plan Assessment & Plan (1) Breast abscess: Comment: left Code(s): N61.1 - Abscess of the breast and nipple (2) Need for Tdap vaccination: Code(s): Z23 - Encounter for immunization Plan . Orders: Orders TDaP Immunization Today Z23 - Encounter for immunization Medications: New cephalexin 500 mg PO Q12H 14 caps 0RF 7 days Patient Instructions: Patient Instructions - Take prescribed antibiotics (Cephalexin) once in the morning and once at night for 7 days. - Wear loose cotton T-shirts to lessen friction on the cyst. - Do not apply any powders under the breast. - Use warm, moist compresses on the cyst area as needed. - Do not squeeze or poke the cyst. - Return for follow-up mid-next week or sooner if symptoms worsen. Coding Level of Care Code Est Pt Level 3 (78745) Diagnoses Breast abscess N61.1 Need for Tdap vaccination Z23
[2025-04-12 11:22] VITALS: BP 138/90; PULSE 86; TEMP 36.7; O2SAT 97; BMI 37.9
== END 2025-04-12 12:33 | disposition home or self-care (01) ==
PROVIDERS: PCP Internal Medicine; Visit Provider Nurse Practitioner Family
DX: N61.1 Abscess of the breast and nipple (principal); Z23 Encounter for immunization

== ENCOUNTER → 2025-04-12 11:19 | Outpatient (BNVA) | payer OTHER, SELFPAY | PROVIDERS: PCP Internal Medicine | DX: N61.1 Abscess of the breast and nipple (principal); N60.02 Solitary cyst of left breast; N64.4 Mastodynia; Z23 Encounter for immunization | CPT/HCPCS: 90471; 90715; 99212 ==

== ENCOUNTER 2025-04-15 14:17 | Outpatient (REF) | payer OTHER, SELFPAY ==
--- OUTSIDE RECORDS SUMMARY | 2025-04-15 14:58 | XMS_ITS | Encounter Summary ---
Author Organization [facility] [employer] [facility] Address [address] [place] [address] Care Team Providers Care Lab Support Service Tech Name Role Phone Unavailable Primary Care Provider [...]
--- OUTSIDE RECORDS SUMMARY | 2025-04-15 14:58 | XMS_ITS | Clinical Summary ---
Author Organization [facility] Address [address] [place] [address] Phone Care Team Providers Care Resident Care Technician Name Role Phone Adam Wharton MD Primary Care Provider [phone] Social History Tobacco Use Types Packs/Day Years Used Date Smoking Tobacco: Never Assessed Comments Unknown Sex and Gender Information Value Date Recorded Sex Assigned at Not on file Legal Sex Female 2:35 PM EDT Gender Identity Not on file Sexual Orientation Not on file Plan of Treatment Upcoming Encounters Date Type Department Care Team ([facility] Contact Info) Description 11/06/2025 2:30 PM EST Office Visit Bariatric Surgery [facility] [address] [id number] Roly Stallworth MD [address] [phone] Health Maintenance Due Date Last Done Comments [...] complete this topic Insurance [facility] [place] [address] Care Teams Resident Care Technician Relationship Specialty Start Date End Date Adam Wharton MD [address] [place] [address] Dr [address] [place], [place] PCP - General Internal Medicine 03/26/25
[2025-04-15 15:00] LABS: Appearance Urine Clear; Glucose Urine UA Negative (Negative); PH 6.0 (5.0-9.0); Specific Gravity - Urine 1.020 (1.005-1.025); UMIC TRIGGER UACC YES
[2025-04-15 15:12] LABS: UACC Culture Trigger YES
== END 2025-04-15 14:18 | disposition home or self-care (01) ==
LOC: HO.LAB 14:17
PROVIDERS: PCP Internal Medicine; Visit Provider Internal Medicine
DX: N30.00 Acute cystitis without hematuria (principal)
CPT/HCPCS: 81001; 81003; 87086

== ENCOUNTER 2025-05-14 14:09 | Outpatient (REF) | payer OTHER, SELFPAY ==
[2025-05-15 04:39] LABS: Bacterial Vaginosis PCR NEGATIVE (Negative); Candida Group PCR NOT DETECTED (Not Detect); Candida glab krusei PCR NOT DETECTED (Not Detect); Trichomonas vaginalis PCR NOT DETECTED (Not Detect)
[2025-05-15 05:10] LABS: CT PCR NOT DETECTED (Not Detect.); NG PCR NOT DETECTED (Not Detect.)
== END 2025-05-14 14:10 | disposition home or self-care (01) ==
LOC: HO.LAB 14:09
PROVIDERS: Advanced Practice Midwife; PCP Internal Medicine; Visit Provider Internal Medicine
DX: Z12.4 Encounter for screening for malignant neoplasm of cervix (principal); Z01.419 Encounter for gynecological examination (general) (routine) without abnormal findings; Z00.00 Encounter for general adult medical examination without abnormal findings; N95.1 Menopausal and female climacteric states; R10.2 Pelvic and perineal pain; I10 Essential (primary) hypertension; J45.40 Moderate persistent asthma, uncomplicated; J30.9 Allergic rhinitis, unspecified; R79.89 Other specified abnormal findings of blood chemistry; G43.909 Migraine, unspecified, not intractable, without status migrainosus; E55.9 Vitamin D deficiency, unspecified; L02.818 Cutaneous abscess of other sites; K21.9 Gastro-esophageal reflux disease without esophagitis; F41.9 Anxiety disorder, unspecified; E66.9 Obesity, unspecified; F17.210 Nicotine dependence, cigarettes, uncomplicated; Z79.899 Other long term (current) drug therapy
CPT/HCPCS: 81003; 81025; 81515; 87491; 87591; 96127; 99212; 99396

== ENCOUNTER 2025-05-14 14:09 | Outpatient (AMB) | payer OTHER, SELFPAY ==
--- NOTE | 2025-05-14 14:24 | MHC.PC.OV ---
Vital Signs 05/14/25 14:26 Height 5 ft 3 in Weight 214 lb 8 oz BMI 38.0 BP 136/88 Blood Pressure Location Lt brachial Position Sitting Pulse 73 Pulse Source Pulse Oximeter Temp 97.3 F Temp Source Temporal Artery Scan Pulse Oximetry (%) 98 Oxygen Delivery Method Room Air Intake Visit Reasons: 4 Months Allergies shellfish derived (SHELLFISH DERIVED) Allergy (Unknown, Verified 05/14/25 14:57) ANAPHYLAXIS Medication List - Last Reconciled 05/14/25 by Adam Wharton MD albuterol sulfate 2.5 mg (3 mL) continuous nebulization Q6-8H PRN cholecalciferol (vitamin D3) 50 mcg PO DAILY 90 days clonidine HCl 0.2 mg PO BEDTIME epinephrine 0.3 mg (0.3 mL) IM Q4H PRN famotidine 40 mg PO BID PRN fluticasone propion-salmeterol 250-50 mcg/dose (Advair Diskus) 1 inh inhalation BID 30 days fluticasone propionate 50 mcg/actuation (Flonase Allergy Relief) 1 spray intranasal DAILY hydrochlorothiazide 12.5 mg PO QAM 90 days ibuprofen 600 mg PO Q6H PRN lidocaine 5% 1 patch topical DAILY PRN 30 days loratadine 10 mg PO DAILY PRN 90 days lorazepam 1 mg PO TID PRN 30 days magnesium oxide (MagOx) 400 mg PO BEDTIME 90 days montelukast 10 mg PO DAILY 90 days trazodone 50 mg PO BEDTIME PRN Ventolin HFA 90 mcg/actuation (albuterol sulfate) 2 puffs inhalation Q6H PRN NS Tobacco use date assessed: 05/14/25 Dental Screening Dental Screen Date: 05/14/25 Did you have a dental visit in the last 12 months?: Yes Did you have a dental problem in the last 6 months where you did not have access to dental care?: No Was dental information given to patient?: Patient has dentist HPI 4 Months HPI Details Patient comes in today for her annual physical examination States that she feels okay Denies any headaches or dizziness Denies any chest pains, no SOB No nausea/vomiting, no abdominal pain No change in bowel habits noted Denies any acute urinary symptoms She had her annual mammogram done last month and has her yearly gynecology appointment coming up later this afternoon States that she needs a couple of her Rx refilled She was also finally able to get an appointment with weight management at [place] but is scheduled to be seen in January of next year [facility] Medical History Insomnia Migraines Gastroesophageal reflux disease Essential hypertension Anxiety Allergic rhinitis Asthma Obesity (BMI 30-39.9) Smoker Cough variant asthma Vitamin D deficiency Surgical History No pertinent past surgical history Family History Father Hypertension Diabetes Mother Diabetes Hypertension Anemia Arthritis Hyperthyroidism Son Autism Chronic mental illness Maternal Aunt Cancer Social History Household Members: Spouse and Children Housing: House Alcohol intake: current Alcohol intake frequency: holidays/special occasions only Alcohol type: other Patient Tobacco Use Status: Current someday Tobacco user Tobacco use type: Cigarette Cigarettes Per Day: 1 e-Cigarette/Vaping Use: Never Used Second Hand Smoke Exposure: Yes service: No Current occupational status: employed 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 1. Little interest or pleasure in doing things: several days 2. Feeling down, depressed, or hopeless: several days 3. Trouble falling or staying asleep, or sleeping too much: several days 4. Feeling tired or having little energy: several days 5. Poor appetite or overeating: several days 6. Feeling bad about yourself - or that you are a failure or have let yourself or your family down: not at all 7. Trouble concentrating on things, such as reading the newspaper or watching television: not at all 8. Moving or speaking so slowly that other people could have noticed. Or the opposite - being so fidgety or restless that you have been moving around a lot more than usual: not at all 9. Thoughts that you would be better off or of hurting yourself in some way: not at all Total score: 5 Depression Screening Interpretation: Positive Depression Screening Follow-up: Existing condition and In treatment Depression Screening Done: Yes 78461 - PHQ-9 Billing: Yes Source: Developed by Drs. Sung Whipple, Angelica Sutton, Tong Sawyer and colleagues, with an educational airam from [employer]. Thrive Questionnaire Date Thrive assessed: 03/19/25 I am a: Patient What is your living situation today?: I have a steady place to live Within the past 12 months, did the food you bought not last and you didn't have the money to get more?: I choose not to answer this question Within the past 12 months, did you worry whether your food would run out before you got money to buy more?: I choose not to answer this question Do you have trouble paying for medicines?: I choose not to answer this question Do you have trouble getting transportation to medical appointments?: I choose not to answer this question Do you have trouble paying your heating and electricity bill?: I choose not to answer this question Do you have trouble taking care of your child, family member or friend?: I choose not to answer this question Do you have trouble with day-to-day activities such as bathing, preparing meals, shopping, managing finances, etc.?: I choose not to answer this question Are you currently unemployed and looking for a job?: I choose not to answer this question Are you interested in more education?: I choose not to answer this question Please select the resources that you would like help with: None Currently or been in a relationship where the following occur: I choose not to answer THRIVE Score: 0 AUDIT C Alcohol Use Questionnaire (AUDIT-C) 1. How often do you have a drink containing alcohol?: Monthly or less 2. How many drinks containing alcohol do you have on a typical day when you are drinking?: 1 or 2 3. How often do you have six or more drinks on one occasion?: Never Total Score: 1 Score Reviewed/Action Taken: Yes SHAYAN-7 AMB Questionnaire SHAYAN-7 Date SHAYAN - 7 assessed: 03/19/25 Feeling nervous, anxious, or on edge: 0 = Not at all Not being able to stop or control worryin = Not at all Worrying too much about different things: 0 = Not at all Trouble relaxin = Not at all Being so restless that it is hard to sit still: 0 = Not at all Becoming easily annoyed or irritable: 0 = Not at all Feeling afraid as if something awful might happen: 0 = Not at all Total SHAYAN-7 score (0-4 normal; 5-9 mild; 10-14 moderate; 15-21 severe): 0 Source: Developed by Drs. Sung Whipple, Angelica Sutton, Tong Sawyer and colleagues, with an educational airam from [employer]. Review of Systems Const Denies chills, Denies fatigue, Denies fever(s), Denies headache(s) and Denies malaise Eyes Denies blurry vision, Denies change in vision, Denies irritation and Denies itchy eyes ENT Denies dysphagia, Denies dizziness, Denies otalgia, Denies headache(s), Denies nasal congestion, Denies neck pain, Denies odynophagia, Denies sinus pain and Denies sore throat Card Denies chest pain, Denies rapid heart rate, Denies irregular heart rhythm, Denies palpitations and Denies dyspnea Resp Denies chest congestion, Denies cough, Denies dyspnea and Denies wheezing GI Denies abdominal pain, Denies bloating, Denies constipation, Denies dysphagia, Denies heartburn, Denies diarrhea, Denies nausea, Denies odynophagia and Denies vomiting Denies hematuria, Denies urinary frequency, Denies dysuria, Denies urinary incontinence and Denies urinary urgency Musc Denies back pain, Denies arthralgias, Denies joint swelling, Denies muscle weakness and Denies neck pain Skin/Breast Details: (+) on and off break out of itchy and sometimes sore small vesicular lesions on her chest wall and abdominal wall Denies breast pain, Denies breast mass, Denies change in pigmentation, Denies rash and Denies unusual bruising Neuro Denies dizziness, Denies headache(s) and Denies paresthesias Psych Denies anxiety and Denies depression Endo Denies fatigue and Denies palpitations Kuldeep/Lymph Denies easy bruising Aller/Immun Denies itchy eyes and Denies wheezing Physical exam (Primary Care) Vital Signs: Last Vital Signs Temp 97.3 F 05/14/25 14:26 Pulse 73 05/14/25 14:26 BP 136/88 05/14/25 14:26 Pulse Ox 98 05/14/25 14:26 Oxygen Delivery Method Room Air 05/14/25 14:26 BMI result Body Mass Index 38.0 Tobacco/Smoking Status: Tobacco use Status Tobacco use date assessed 05/14/25 05/14/25 14:29 Patient Tobacco Use Status Current someday Tobacco 05/14/25 14:25 Tobacco use type Cigarette 05/14/25 14:25 e-Cigarette/Vaping Use Never Used 05/14/25 14:25 PHQ-9: PHQ-9 Score PHQ-9: Total score 5 05/14/25 14:29 Depression Screening Interpretation: Positive Depression Screening Follow-up: Existing condition and In treatment Thrive Assessment: Date of Thrive Assessment Date Thrive assessed 03/19/25 05/14/25 14:25 Currently or been in a relationship where the following occur: I choose not to answer Const General: no acute distress, alert and awake Orientation/consciousness: patient oriented x3 HENMT Head: Yes normocephalic and Yes atraumatic Ears: external ears normal, TM's normal bilaterally and EAC's normal General nose exam: No nasal discharge present Face and sinus: Yes normal facial exam and Yes sinuses nontender Teeth and gingiva: dentition normal Throat: Yes posterior oropharynx normal and Yes tonsils normal (no TP congestion) Eyes Eyelids: Yes eyelids normal Conjunctivae: conjunctivae normal Pupils: Equal, round and reactive pupils present EOM: EOMs intact bilaterally Neck Neck: Yes no lymphadenopathy and Yes supple Thyroid: Thyroid normal Resp Auscultation: clear to auscultation bilaterally, no rales and no wheezes Cardio Rate: regular rate Rhythm: regular rhythm Heart sounds: no murmurs GI Palpation (GI): Soft to palpation, nontender and No hepatosplenomegaly present Auscultation: normal bowel sounds General: Yes no CVA tenderness Back/Spine/Pelvis Back: no CVA tenderness Thoracic/Lumbar Spine: thoracic and lumbar spine normal to inspection Skin Lesions: no lesions Rashes: no rashes Neuro General: patient oriented x3, moves all extremities, no focal motor deficits and CN's II-XI intact bilaterally Cranial nerves: Yes Equal, round and reactive pupils present Cognition (Neuro): normal cognition Gait exam (Neuro): Normal gait present Extrem General: Yes no clubbing, cyanosis or edema Coding Level of Care Code Est Pt Prev Care 40-64y(50203) Diagnoses Annual physical exam Z00.00 Essential hypertension I10 Moderate persistent asthma without complication J45.40 Asthma severity: moderate Asthma persistence: persistent Asthma complication type: uncomplicated Allergic rhinitis, unspecified seasonality, unspecified trigger J30.9 Allergic rhinitis trigger: unspecified Allergic rhinitis seasonality: unspecified Elevated TSH R79.89 Migraine without status migrainosus, not intractable, unspecified migraine type G43.909 Migraine type: unspecified Status migrainosus presence: without status migrainosus Intractability: not intractable Vitamin D deficiency E55.9 Cutaneous abscess of other site L02.818 Site of cutaneous abscess: other site Gastroesophageal reflux disease without esophagitis K21.9 Esophagitis presence: without esophagitis Insomnia, unspecified type G47.00 Insomnia type: unspecified Anxiety F41.9 Smoker F17.200 Obesity (BMI 30-39.9) E66.9 Additional Codes PHQ-9 - 74050 - PHQ-9 Billing: Yes ([id number]) Assessment & Plan Assessment & Plan (1) Annual physical exam: Code(s): Z00.00 - Encounter for general adult medical examination without abnormal findings Category: Medical Plan: Check labs ZEINAB to complete her annual exam She had her annual mammogram done last month and has her yearly gynecology appointment coming up later this afternoon (2) Essential hypertension: Code(s): I10 - Essential (primary) hypertension Category: Medical Plan: Reinforced low sodium diet - goal is systolic BP of 120 mm or less Continue HCTZ 12.5 mg Q AM - Rx refilled She is reminded to monitor her blood pressure regularly (3) Asthma: Code(s): J45.909 - Unspecified asthma, uncomplicated Category: Medical Qualifiers: Asthma severity: moderate Asthma persistence: persistent Asthma complication type: uncomplicated Qualified Code(s): J45.40 - Moderate persistent asthma, uncomplicated Plan: Controlled lately Continue Advair Diskus 250-50 mcg 1 inhalation BID; continue Montelukast 10 mg QD and Ventolin HFA 2 inhalations Q 6 hours PRN She also has Albuterol nebulizer solution to use with her updraft when needed (4) Allergic rhinitis: Code(s): J30.9 - Allergic rhinitis, unspecified Category: Medical Qualifiers: Allergic rhinitis trigger: unspecified Allergic rhinitis seasonality: unspecified Qualified Code(s): J30.9 - Allergic rhinitis, unspecified Plan: Continue Loratadine 10 mg QD PRN and Fluticasone 50 mcg nasal spray QD PRN (5) Elevated TSH: Code(s): R79.89 - Other specified abnormal findings of blood chemistry Category: Medical Plan: Her serum TSH was slightly elevated but her free T4 and T3 levels were all normal when she had some labs done a few months ago; patient is clinically euthyroid Her thyroid ultrasound also came back showing (+) 3 mm colloid cyst is noted in the left thyroid lobe. No solid nodules are identified Will recheck her TFTs for follow up (6) Migraines: Code(s): G43.909 - Migraine, unspecified, not intractable, without status migrainosus Category: Medical Qualifiers: Migraine type: unspecified Status migrainosus presence: without status migrainosus Intractability: not intractable Qualified Code(s): G43.909 - Migraine, unspecified, not intractable, without status migrainosus Plan: Reinforced avoidance of all potential migraine triggers Continue Ibuprofen 600 mg Q 6 hours PRN (7) Vitamin D deficiency: Code(s): E55.9 - Vitamin D deficiency, unspecified Category: Medical Plan: Continue Vitamin D3 2000 units QD (8) Cutaneous abscess: Code(s): L02.91 - Cutaneous abscess, unspecified Category: Medical Qualifiers: Site of cutaneous abscess: other site Qualified Code(s): L02.818 - Cutaneous abscess of other sites Plan: On and off over her chest and abdominal wall Will start her on Mupirocin ointment 2% to apply to the lesions TID as needed (9) Gastroesophageal reflux disease: Code(s): K21.9 - Gastro-esophageal reflux disease without esophagitis Category: Medical Qualifiers: Esophagitis presence: without esophagitis Qualified Code(s): K21.9 - Gastro-esophageal reflux disease without esophagitis Plan: Dietary restrictions reinforced Continue Famotidine 40 mg BID PRN (10) Insomnia: Code(s): G47.00 - Insomnia, unspecified Category: Medical Qualifiers: Insomnia type: unspecified Qualified Code(s): G47.00 - Insomnia, unspecified Plan: Sleep hygiene reinforced Have advised patient that her issues with sleeping appear to be at least partially due to her anxiety Continue Trazodone 50 mg Q HS and Clonidine 0.2 mg Q HS PRN Have also advised her to try taking some oral Magnesium tablets 400 mg Q HS (11) Anxiety: Code(s): F41.9 - Anxiety disorder, unspecified Category: Medical Plan: Continue Lorazepam 1 mg TID PRN (12) Smoker: Code(s): F17.200 - Nicotine dependence, unspecified, uncomplicated Category: Social Hx Plan: Patient is counseled again on complete smoking cessation (13) Obesity (BMI 30-39.9): Code(s): E66.9 - Obesity, unspecified Category: Medical Plan: Reinforced diet/exercise as tolerated/lose weight Per request, we referred her to weight management at [place] last month as patient does not want to pursue bariatric surgery, which she was advised is the only thing that weight management here at [place] provides at this time States that she is now scheduled to be seen but not until January of 2026 Plan Follow up in 4 months Orders: Orders Lipid Panel Today E78.00 - Pure hypercholesterolemia, unspecified, Z00.00 - Encounter for general adult medical examination without abnormal findings TSH reflex Free T4 Today E78.00 - Pure hypercholesterolemia, unspecified, Z00.00 - Encounter for general adult medical examination without abnormal findings UA CC w/rflx Micro + Cult Today R30.0 - Dysuria, Z00.00 - Encounter for general adult medical examination without abnormal findings Complete Blood Count Auto Diff Today D64.9 - Anemia, unspecified, Z00.00 - Encounter for general adult medical examination without abnormal findings Comprehensive [place]. Panel Fast Today E78.00 - Pure hypercholesterolemia, unspecified, Z00.00 - Encounter for general adult medical examination without abnormal findings Vitamin D 25-OH Total Today E55.9 - Vitamin D deficiency, unspecified, Z00.00 - Encounter for general adult medical examination without abnormal findings Medications: New mupirocin 2% (Centany) apply to lesions on chest and abdominal wall 1 appl topical TID 22 grams 0RF Refilled hydrochlorothiazide 12.5 mg PO QAM 90 caps 1RF 90 days Ventolin HFA 90 mcg/actuation (albuterol sulfate) 2 puffs inhalation Q6H PRN 18 grams 3RF shortness of breath or wheezing NS
[2025-05-14 14:26] VITALS: BP 136/88; PULSE 73; TEMP 36.3; O2SAT 98; BMI 38.0
--- OUTSIDE RECORDS SUMMARY | 2025-05-14 15:11 | XMS_ITS | Clinical Summary ---
Author Organization [address] [facility] Address [address] [place] [address] Phone Care Team Providers Care [employer] Name Role Phone Adam Wharton MD Primary Care Provider Social History Tobacco Use Types Packs/Day Years Used Date Smoking Tobacco: Never Assessed Comments Unknown Sex and Gender Information Value Date Recorded Sex Assigned at Not on file Legal Sex Female 2:35 PM EDT Gender Identity Not on file Sexual Orientation Not on file Plan of Treatment Upcoming Encounters Date Type Department Care Team ([facility] Contact Info) Description 11/06/2025 2:30 PM EST Office Visit Bariatric Surgery - [place] [address] [facility] [address] [place] [address] Roly Stallworth MD [address] [place] [phone] Health Maintenance Due Date Last Done Comments Breast Cancer Screening 1980 DTaP,Tdap,and Td Vaccines (1 - Tdap) 1999 Hepatitis B Vaccines (1 of 3 - 19+ 3-dose series) 1999 Cervical Cancer Screening: P ap Smear 2001 COVID-19 Vaccine ( - 2023-2 5 season) 2024 Depression Screening 09/18/2024 HIV [...] patient's age to complete this topic Insurance [facility] Care Teams [employer] Relationship Specialty Start Date End Date Adam Wharton MD [address] [place] [address] [address] [place], [place] PCP - General Internal Medicine 03/26/25
== END 2025-05-14 15:00 | disposition home or self-care (01) ==
LOC: HO.HMCH 14:11
PROVIDERS: PCP Internal Medicine; Visit Provider Internal Medicine
DX: Z00.00 Encounter for general adult medical examination without abnormal findings (principal); I10 Essential (primary) hypertension; J45.40 Moderate persistent asthma, uncomplicated; J30.9 Allergic rhinitis, unspecified; R79.89 Other specified abnormal findings of blood chemistry; G43.909 Migraine, unspecified, not intractable, without status migrainosus; E55.9 Vitamin D deficiency, unspecified; L02.818 Cutaneous abscess of other sites; K21.9 Gastro-esophageal reflux disease without esophagitis; G47.00 Insomnia, unspecified; F41.9 Anxiety disorder, unspecified; F17.200 Nicotine dependence, unspecified, uncomplicated

== ENCOUNTER 2025-05-14 15:07 | Outpatient (AMB) | payer OTHER, SELFPAY ==
--- NOTE | 2025-05-14 15:47 | A.OFFVIS_ITS ---
Intake Visit Reasons: pelvic pain Intake Note: pt c/o weight gain, hairloss Allergies shellfish derived (SHELLFISH DERIVED) Allergy (Unknown, Verified 05/14/25 15:53) ANAPHYLAXIS HPI Comments Details: Patient is a premenopausal woman presenting for annual examination. [employer] concerns: pelvic pain that comes and goes, no menses for 11months, having hot flashes. Menarche age 8. She reports hair loss, fatigue, brain fog and weight gain. History of vitamin-D deficiency is waiting for prescription be sent in. Recent breast cyst left side on the skin healing, treated with antibiotics. Sexually active with has no concerns for STIs. ParaGard in place since 2016. She tries to eat healthy and stays active with exercise. Denies family history of breast, ovarian or colon cancer. Last pap smear 2018, negative. Mammogram: 2024. [facility] Medical History Insomnia Migraines Gastroesophageal reflux disease Essential hypertension Anxiety Allergic rhinitis Asthma Obesity (BMI 30-39.9) Smoker Cough variant asthma Vitamin D deficiency Surgical History No pertinent past surgical history Family History Father Hypertension Diabetes Mother Diabetes Hypertension Anemia Arthritis Hyperthyroidism Son Autism Chronic mental illness Maternal Aunt Cancer Social History Household Members: Spouse and Children Housing: House Alcohol intake: current Alcohol intake frequency: holidays/special occasions only Alcohol type: other Patient Tobacco Use Status: Current someday Tobacco user Tobacco use type: Cigarette Cigarettes Per Day: 1 e-Cigarette/Vaping Use: Never Used Second Hand Smoke Exposure: Yes service: No Current occupational status: employed 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 Current occupational exposures/hazards: No Sexual orientation: Straight/Heterosexual Gender identity: Female Cognitive needs: No Hearing needs: No Vision needs: No Female Reproductive History Menstrual Age of Menarche: 8 control method: copper IUCD (Paragard 2016) Date of last pap smear: 05/07/19 (neg pap and hpv) Review of Systems Const All systems reviewed & are unremarkable except as noted in HPI and below Reports as per HPI Eyes Reports no additional complaints ENT Reports no additional complaints Card Reports no additional complaints Resp Reports no additional complaints GI Reports as per HPI and Reports no additional complaints Reports as per HPI Musc Reports no additional complaints Skin/Breast Reports as per HPI Neuro Reports no additional complaints Psych Reports no additional complaints Endo Reports no additional complaints Kuldeep/Lymph Reports no additional complaints Aller/Immun Reports no additional complaints Physical Exam Const General: cooperative, healthy appearing, no acute distress, well developed and alert Orientation/consciousness: patient oriented x3 HEENT Head: Yes normal to inspection Eyes General: appearance normal, both eyes and all related structures Neck Neck: Yes normal visual inspection Thyroid: Thyroid normal Chest Other: Scar from skin breast cyst healed left side 5 to 6 o'clock position Chest palpation & inspection: normal inspection of the chest and other (no puckering, dimpling, peau de orange, retraction, discharge, masses) Breast/axilla inspection: normal inspection of the breasts Breast/axilla palpation: normal palpation of the breasts Resp Effort & Inspection: normal respiratory effort GI Inspection: Yes normal to inspection Palpation (GI): Soft to palpation Rectal Exam - Female: deferred General: Yes bladder normal to palpation External Female Exam: normal external appearance and normal appearance of the urethra Speculum Exam - Vagina: normal appearance of the vagina, normal palpation and normal vaginal discharge Speculum Exam - Cervix: normal appearance of the cervix, normal palpation and Other cervical findings present (IUD strings present at the os) Bimanual exam- vagina & uterus: normal bimanual exam, normal palpation, uterine size normal, bladder normal to palpation, normal palpation and non-tender Bimanual Exam- Adnexa, other: no masses Skin General skin exam: no rashes or lesions noted Rashes: no rashes Neuro General: patient oriented x3 Cognition (Neuro): normal cognition Extrem General: Yes normal to inspection Psych Attitude: cooperative Thought process: Normal thought process present Results AMB Test Urine AMB Test Urine Negative Last Edit by HOWIE Fairbanks on 05/14/25 16:04 AMB Urinalysis, Automated UA Leukoctes 2 Adriana/uL Last Edit by HOWIE Fairbanks on 05/14/25 16:04 UA Nitrite Negative Last Edit by HOWIE Fairbanks on 05/14/25 16:04 UA Urobilinogen 0 mg/dL Last Edit by Lianet Frazier, RMA on 05/14/25 16:0 4 UA Protein 0 mg/dL Last Edit by Lianetesperanza Frazier, RMA on 05/14/25 16:04 UA pH 5.5 Last Edit by Lianet Kylee Jarretthieumargy, RMA on 05/14/25 16:04 UA Blood 0 Kike/uL Last Edit by Lianet Kylee Jarretthieumargy RMA on 05/14/25 16:04 UA Specific [place] 1.010 Last Edit by Lianetesperanza Frazier, RMA on 05/14/25 16:04 UA Ketone Negative Last Edit by Lianet Kylee Jarretthieumargy, RMA on 05/14/25 16:04 UA Bilirubin 0 mg/dL Last Edit by Lianet Kylee Frazier RMA on 05/14/25 16:04 UA Glucose 0 mg/dL Last Edit by Lianet Kylee Frazier RMA on 05/14/25 16:04 Results Reviewed Results Reviewed: Laboratory Last Values Urine pH (Auto) 5.5 05/14/25 16:03 Specific [place] (Auto) 1.010 05/14/25 16:03 Urine Protein (Auto) 0 mg/dL 05/14/25 16:03 Glucose (UA)(Auto) 0 mg/dL 05/14/25 16:03 Urine Ketones (Auto) Negative 05/14/25 16:03 Urine Blood (Auto) 0 Kike/uL 05/14/25 16:03 Urine Nitrite (Auto) Negative 05/14/25 16:03 Urine Bilirubin (Auto) 0 mg/dL 05/14/25 16:03 Urine Urobilinogen (Auto) 0 mg/dL 05/14/25 16:03 Leukocyte Esterase (Auto) 2 Adriana/uL 05/14/25 16:03 Tst Clinic Negative 05/14/25 16:03 Assessment & Plan Assessment & Plan (1) Encounter for annual routine gynecological examination: Code(s): Z01.419 - Encounter for gynecological examination (general) (routine) without abnormal findings Category: Medical Plan: Discussed: Current recommendations for pap smears per ASCCP guidelines. Breast awareness and periodic breast exams. Mammogram yearly. Maintain a healthy lifestyle including a well balanced diet and routine exercise. Colonoscopy >45, or at risk sooner. Patient verbalizes understanding and agrees to the plan of care. She was given opportunity to ask questions and all questions were answered to the best of my ability. RTO in one year for annual manager control examination. This note is constructed using voice recognition software. While every effort has been made to ensure accuracy, aeronautical design engineer errors may have been included. (2) Pelvic pain: Code(s): R10.2 - Pelvic and perineal pain Category: Medical Plan: Advised to have GC chlamydia and BV panel completed, pelvic ultrasound ordered. Follow up pending results in person. The patient expressed understanding and agreement with the plan of care. All of her questions and concerns were addressed to the best of my ability. Total time I personally spent on visit and management today: ?20 minutes. Time spent included review of pertinent office notes in the electronic health record; review of laboratory and imaging results; review of personal family medical history; performing physical exam; discussing diagnosis and plan of care with the patient; documenting the encounter in the EMR. (3) Perimenopause: Code(s): N95.1 - Menopausal and female climacteric states Plan: Menopause verses perimenopause. Menopause is definitive of 1 year of no menses or 12 months in succession. Report any abnormal uterine bleeding in example prolonged episodes, or short intervals less than 24 days. Discussed concerns and symptoms, advised to initiate her vitamin-D therapy, and to return to the office for a HRT consult. Literature provided on menopause, exercise, calcium supplementation and vitamin-D, book reading options for perimenopausal changes provided. The patient expressed understanding and agreement with the plan of care. All of her questions and concerns were addressed to the best of my ability. Follow up combination visit for ultrasound in HRT consult 30 minutes appointment to be scheduled. Plan This note is constructed using voice recognition software. While every effort has been made to ensure accuracy, aeronautical design engineer errors may have been included. Orders: Orders AMB HCG Urine Test Today R10.2 - Pelvic and perineal pain, Z32.02 - Encounter for test, result negative Bacterial Vaginosis Panel Today R10.2 - Pelvic and perineal pain Pap Smear Today R10.2 - Pelvic and perineal pain, Z01.419 - Encounter for gynecological examination (general) (routine) without abnormal findings, Z12.4 - Encounter for screening for malignant neoplasm of cervix US pelvic and transvaginal Today R10.2 - Pelvic and perineal pain AMB Urinalysis Automated Today R10.2 - Pelvic and perineal pain CT NG by PCR Vag/Cerv Today R10.2 - Pelvic and perineal pain HPV High risk Today R10.2 - Pelvic and perineal pain, Z01.419 - Encounter for gynecological examination (general) (routine) without abnormal findings, Z12.4 - Encounter for screening for malignant neoplasm of cervix Coding Level of Care Code Est Pt Level 2 (99598) New Pt Prev Care 40-64y(16596) Diagnoses Encounter for annual routine gynecological examination Z01.419 Pelvic pain R10.2 Perimenopause N95.1
== END 2025-05-15 12:51 | disposition home or self-care (01) ==
PROVIDERS: PCP Internal Medicine; Visit Provider Advanced Practice Midwife
DX: Z01.419 Encounter for gynecological examination (general) (routine) without abnormal findings (principal); R10.2 Pelvic and perineal pain; N95.1 Menopausal and female climacteric states; Z32.02 Encounter for pregnancy test, result negative
CPT/HCPCS: 99212; 99396; 99459

== ENCOUNTER 2025-05-14 16:26 | Outpatient (REF) | payer OTHER, SELFPAY | END 2025-05-14 16:27 | disposition home or self-care (01) | LOC: HO.LNP 16:26 | PROVIDERS: Visit Provider Advanced Practice Midwife | DX: Z12.4 Encounter for screening for malignant neoplasm of cervix (principal); R10.2 Pelvic and perineal pain | CPT/HCPCS: 87626; 88175 ==

== ENCOUNTER 2025-06-26 09:14 | Outpatient (REF) | payer OTHER, SELFPAY ==
[2025-06-26 16:45] LABS: Chlamydia pneumoniae PCR Not Detected (Not Detect.); Coronavirus 229E PCR Not Detected (Not Detect.); Coronavirus HKU1 PCR Not Detected (Not Detect.); Coronavirus NL63 PCR Not Detected (Not Detect.); Coronavirus OC43 PCR Not Detected (Not Detect.); RSV PCR Not Detected (Not Detect.); Rhino/Enterovirus PCR Not Detected (Not Detect.); SARS-CoV-2 PCR Not Detected (Not Detect.)
[2025-06-26 16:48] LABS: Influenza A H1 PCR Not Detected (Not Detect.); Influenza A H1-2009 PCR Not Detected (Not Detect.); Influenza A H3 PCR Not Detected (Not Detect.)
== END 2025-06-26 09:15 | disposition home or self-care (01) ==
LOC: HO.LNP 09:14
PROVIDERS: PCP Internal Medicine; Visit Provider Physician Assistant Medical
DX: J06.9 Acute upper respiratory infection, unspecified (principal); R09.81 Nasal congestion
CPT/HCPCS: 87633; 99212

== ENCOUNTER 2025-06-26 09:14 | Outpatient (AMB) | payer OTHER, SELFPAY ==
[2025-06-26 09:21] VITALS: BP 122/80; PULSE 82; RESP 18; TEMP 36.9; O2SAT 96; BMI 38.4
--- NOTE | 2025-06-26 09:21 | MHC.OFFWIV ---
Intake Vital Signs 06/26/25 09:21 Height 5 ft 3 in Weight 217 lb BMI 38.4 BP 122/80 Blood Pressure Location Rt brachial Position Sitting Respiration 18 Pulse 82 Pulse Source Pulse Oximeter Temp 98.4 F Temp Source Oral Pulse Oximetry (%) 96 Oxygen Delivery Method Room Air Intake Visit Reasons: EP Sinus infection Intake Note: Pt is here today for a walk in visit. Pt c/o sinus pain and pressure, a lot of green mucus since Monday. Patient Tobacco Use Status: Current someday Tobacco user Allergies shellfish derived (SHELLFISH DERIVED) Allergy (Unknown, Verified 06/26/25 09:24) ANAPHYLAXIS HPI HPI Comments History of Present Illness Details History - The patient is a 44-year-old female presenting with symptoms suggestive of a sinus infection. - Symptoms began on Monday with a scratchy throat, progressing to nasal congestion and postnasal drip. - The patient reports facial pressure, headaches, and a sensation of mucus in the throat, which has changed from clear to yellow to green. - She has a bad taste when she swallows the mucosa. - She has been using ibuprofen for symptom relief and has a history of seasonal asthma, which causes occasional wheezing at night. 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 - She smokes on the weekends. - She denies fever, chills, chest pain, n/v/d, SOB, or cough. Physical Exam General: Cooperative, healthy appearing, comfortable and no acute distress Orientation/consciousness: Patient oriented x3 Limitations: No limitations Head: Normal to inspection Ears: Hearing grossly normal bilaterally, external ears normal, erythema noted in the canals. TMs normal, not bulging Nose: Normal external nose present, normal nares present. Face and sinus: Sinuses tender to palpation. Mouth: Normal oral and palatal mucosa present and moist mucous membranes noted. Throat: Tonsils normal. Uvula is midline. Posterior oropharynx with erythema and no exudates. Eyes: Appearance normal, both eyes and all related structures Neck: Normal visual inspection, full ROM. No lymphadenopathy noted. Respiratory: Clear to auscultation bilaterally. Normal respiratory effort, able to speak in complete sentences. No respiratory distress, not tachypneic, no tripod positioning and no use of accessory muscles. Cardiovascular: Regular rate and rhythm. Normal S1 and S2 Skin: No rashes or lesions noted Patient was informed and verbally consented to the use of an ambient scribe for clinic note documentation during this visit FORMERLY [facility], [facility] Medical History Insomnia Migraines Gastroesophageal reflux disease Essential hypertension Anxiety Allergic rhinitis Asthma Obesity (BMI 30-39.9) Smoker Cough variant asthma Vitamin D deficiency Surgical History No pertinent past surgical history Family History Father Hypertension Diabetes Mother Diabetes Hypertension Anemia Arthritis Hyperthyroidism Son Autism Chronic mental illness Maternal Aunt Cancer Social History Household Members: Spouse and Children Housing: House Alcohol intake: current Alcohol intake frequency: holidays/special occasions only Alcohol type: other Patient Tobacco Use Status: Current someday Tobacco user Tobacco use type: Cigarette Cigarettes Per Day: 1 e-Cigarette/Vaping Use: Never Used Second Hand Smoke Exposure: Yes service: No Current occupational status: employed 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 Current occupational exposures/hazards: No Sexual orientation: Straight/Heterosexual Gender identity: Female Cognitive needs: No Hearing needs: No Vision needs: No Female Reproductive History Menstrual Age of Menarche: 8 Review of Systems Const All systems reviewed & are unremarkable except as noted in HPI and below Physical Exam Vital Signs: Last Vital Signs Temp 98.4 F 06/26/25 09:21 Pulse 82 06/26/25 09:21 Resp 18 06/26/25 09:21 BP 122/80 06/26/25 09:21 Pulse Ox 96 06/26/25 09:21 Oxygen Delivery Method Room Air 06/26/25 09:21 BMI result Body Mass Index 38.4 Assessment & Plan Assessment & Plan (1) Sinus congestion: Code(s): R09.81 - Nasal congestion Plan Most likely sinusitis vs viral illness vs covid vs flu plan - Initiate treatment with antibiotics, nasal spray, and decongestant with antihistamine. - Conduct respiratory panel testing due to occupational exposure risks. - Monitor symptoms and manage with bronchodilators as needed. - will call her with the results - follow up with PCP Orders: Orders Resp Pathogen Panel - [facility] [place] Today J06.9 - Acute upper respiratory infection, unspecified Medications: New cetirizine-pseudoephedrine 5-120 mg ER 1 tab PO BID 14 tabs 0RF 7 days fluconazole may repeat second dose 72 hrs after first dose if symptoms persist 150 mg PO Q3D 2 tabs 0RF amoxicillin-pot clavulanate 875-125 mg 1 tab PO Q12H 14 tabs 0RF Coding Level of Care Code Est Pt Level 3 (69083) Diagnoses Sinus congestion R09.81
== END 2025-06-26 10:04 | disposition home or self-care (01) ==
PROVIDERS: PCP Internal Medicine; Visit Provider Physician Assistant Medical
DX: R09.81 Nasal congestion (principal)

== ENCOUNTER 2025-08-30 09:04 | Outpatient (AMB) | payer OTHER, SELFPAY ==
[2025-08-30 09:06] VITALS: BP 136/90; PULSE 86; RESP 16; TEMP 37.7; O2SAT 99; BMI 38.3
--- NOTE | 2025-08-30 09:06 | MHC.OFFWIV ---
Intake Vital Signs 08/30/25 09:06 Height 5 ft 3 in Weight 216 lb BMI 38.3 BP 136/90 H Blood Pressure Location Lt brachial Position Sitting Respiration 16 Pulse 86 Pulse Source Pulse Oximeter Temp 99.8 F Temp Source Oral Pulse Oximetry (%) 99 Oxygen Delivery Method Room Air Intake Visit Reasons: EP, sore throat, sinus pressure Intake Note: Pt is here today c/o sorethroat and sinus pressure Patient Tobacco Use Status: Current someday Tobacco user Allergies shellfish derived (SHELLFISH DERIVED) Allergy (Unknown, Verified 08/30/25 09:06) ANAPHYLAXIS Medication List - Last Reconciled 08/30/25 by Shakir Damon MD albuterol sulfate 2.5 mg (3 mL) continuous nebulization Q6-8H PRN cholecalciferol (vitamin D3) 50 mcg PO DAILY 90 days clonidine HCl 0.2 mg PO BEDTIME epinephrine 0.3 mg (0.3 mL) IM Q4H PRN famotidine 40 mg PO BID PRN fluticasone propion-salmeterol 250-50 mcg/dose (Advair Diskus) 1 inh inhalation BID 30 days fluticasone propionate 50 mcg/actuation (Flonase Allergy Relief) 1 spray intranasal DAILY hydrochlorothiazide 12.5 mg PO QAM 90 days ibuprofen 600 mg PO Q6H PRN lidocaine 5% 1 patch topical DAILY PRN 30 days loratadine 10 mg PO DAILY PRN 90 days lorazepam 1 mg PO TID PRN 30 days magnesium oxide (MagOx) 400 mg PO BEDTIME 90 days montelukast 10 mg PO DAILY 90 days mupirocin 2% (Centany) 1 appl topical TID trazodone 50 mg PO BEDTIME PRN Ventolin HFA 90 mcg/actuation (albuterol sulfate) 2 puffs inhalation Q6H PRN NS HPI EP, sore throat, sinus pressure HPI Details C/o Sinus Pressure and sore throat x 2 days 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 Has felt feverish. [facility] Medical History Insomnia Migraines Gastroesophageal reflux disease Essential hypertension Anxiety Allergic rhinitis Asthma Obesity (BMI 30-39.9) Smoker Cough variant asthma Vitamin D deficiency Surgical History No pertinent past surgical history Family History Father Hypertension Diabetes Mother Diabetes Hypertension Anemia Arthritis Hyperthyroidism Son Autism Chronic mental illness Maternal Aunt Cancer Social History Household Members: Spouse and Children Housing: House Alcohol intake: current Alcohol intake frequency: holidays/special occasions only Alcohol type: other Patient Tobacco Use Status: Current someday Tobacco user Tobacco use type: Cigarette Cigarettes Per Day: 1 e-Cigarette/Vaping Use: Never Used Second Hand Smoke Exposure: Yes service: No Current occupational status: employed 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 Current occupational exposures/hazards: No Sexual orientation: Straight/Heterosexual Gender identity: Female Cognitive needs: No Hearing needs: No Vision needs: No Female Reproductive History Menstrual Age of Menarche: 8 Review of Systems Const Details: See HPI Physical Exam Vital Signs: Last Vital Signs Temp 99.8 F 08/30/25 09:06 Pulse 86 08/30/25 09:06 Resp 16 08/30/25 09:06 BP 136/90 H 08/30/25 09:06 Pulse Ox 99 08/30/25 09:06 Oxygen Delivery Method Room Air 08/30/25 09:06 BMI result Body Mass Index 38.3 Const General: no acute distress and well developed Nutritional Appearance: well nourished Orientation/consciousness: patient oriented x3 HEENT Other: Significant nasal congestion and postnasal drip also tenderness at maxillary sinuses no exudates in posterior pharynx Head: Yes normocephalic and Yes atraumatic Eyes General: appearance normal, both eyes and all related structures Pupils: Equal, round and reactive pupils present EOM: EOMs intact bilaterally Resp Effort & Inspection: normal respiratory effort Auscultation: clear to auscultation bilaterally Cardio Rate: regular rate Rhythm: regular rhythm Heart sounds: S1 normal heart sound present, S2 normal heart sound present, no gallops, no murmurs and no rubs Neuro General: patient oriented x3 and gait normal Cranial nerves: Yes Equal, round and reactive pupils present Psych Affect: normal affect Results AMB Rapid Strep AMB Rapid Strep Negative Last Edit by Priya Mercado CMA on 08/30/25 09:20 Assessment & Plan Assessment & Plan (1) Sinus pressure: Code(s): J34.89 - Other specified disorders of nose and nasal sinuses (2) Sore throat: Code(s): J02.9 - Acute pharyngitis, unspecified Plan Sinus Pressure and sore throat x 2 days 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 Has felt feverish. strep test negative. Severe nasal congestion and maxillary tenderness likely early sinus infection. Start amoxicillin and warm compresses on face can not rule out COVID /flu/RSV so nasal swab acquired and will be sent to the lab Orders: Orders SARS-CoV2/FLU/RSV Today J31.0 - Chronic rhinitis AMB Rapid Strep Screen Today Z13.9 - Encounter for screening, unspecified Medications: New amoxicillin 500 mg PO Q12H 20 tabs 0RF 10 days Coding Level of Care Code Est Pt Level 3 (95128) Diagnoses Sinus pressure J34.89 Sore throat J02.9
== END 2025-08-30 09:42 | disposition home or self-care (01) ==
PROVIDERS: PCP Internal Medicine; Visit Provider Family Medicine
DX: J34.89 Other specified disorders of nose and nasal sinuses (principal); J02.9 Acute pharyngitis, unspecified; Z13.9 Encounter for screening, unspecified

== ENCOUNTER 2025-08-30 09:04 | Outpatient (REF) | payer OTHER, SELFPAY ==
--- OUTSIDE RECORDS SUMMARY | 2025-08-30 11:55 | XMS_ITS | Encounter Summary ---
Author Organization [facility] [employer] [facility] Address [address] [place] [address] Care Team Providers Care Artificial Plastic Eye Maker Name Role Phone Unavailable Primary Care [...]
--- OUTSIDE RECORDS SUMMARY | 2025-08-30 11:55 | XMS_ITS | Clinical Summary ---
Author Organization [facility] [employer] Address [address] [place] [address] Care Team Providers Care Nonprofit Director Name Role Phone Unavailable Primary Care Provider [...] Date Last Done Comments Depression Screening 1980 Disability Screening 1980 Alcohol/Substance Use Screening 1992 Tobacco Screening 1992 Family Planning (PISQ) 1995 HPV Vaccines (1 - 3-dose series) 1995 DTaP/Tdap/Td Vaccines (1 - Tdap) 1999 Hepatitis B Vaccines (1 of 3 - 19+ 3-dose series) 1999 Pap Smear 2001 Cervical Cancer Screening 2010 HPV/Cotest 2010 Mammogram 2020 COVID-19 Vaccine ( - 2024-2 6 season) 2025 Influenza Vaccine (#1) 2025 Zoster Vaccines (1 of 2) 2030 RSV [...] Years) and At-Risk Patients (6 to 49) Years Aged Out No longer eligible b ased on patient's age to complete this topic RSV under 20 months Aged Out No longe r eligible based on patient's age to complete this topic Rotavirus Vaccines Aged Out No longer eligible based on patient's age to complete this topic
[2025-08-30 14:26] LABS: Resp Syncy Virus RNA Qual PCR NEGATIVE (Negative); SARS COV2 PCR INHOUSE NEGATIVE (Negative)
== END 2025-08-30 09:05 | disposition home or self-care (01) ==
LOC: HO.LNP 09:04
PROVIDERS: Family Medicine; PCP Internal Medicine
DX: J31.0 Chronic rhinitis (principal); J02.9 Acute pharyngitis, unspecified; J34.89 Other specified disorders of nose and nasal sinuses; F17.210 Nicotine dependence, cigarettes, uncomplicated
CPT/HCPCS: 87637; 87880; 99212